=== PATIENT | female | born 1945 | race Caucasian/White ===

== ENCOUNTER 2024-02-28 07:42 | Outpatient (AMB) | payer OTHER, SELFPAY ==
--- NOTE | 2024-02-28 07:54 | MHC.OFFVIS ---
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 The patient describes her pain as sharp in nature. Most of the pain is along the anterior aspect of her knee. She has failed the last 3 months of conservative treatment including a home exercise program, cortisone injection, Tylenol and Celebrex. Patient states that her left knee pain is interfering with her activities of daily living and her ability to sleep well through the night. She has had a viscosupplementation injection given into her right knee in the past which gave her good relief. She has not had a viscosupplementation injection given into her left knee. She wishes to hold off on total knee replacement surgery for as long as possible. Allergies No Known Allergies Allergy (Verified 02/28/24 07:54) Medication List - Last Reconciled 02/28/24 by Gene Mcqueen MD albuterol sulfate 90 mcg/actuation inhalation amlodipine 10 mg PO DAILY aspirin (Adult Aspirin Regimen) 81 mg PO DAILY celecoxib 200 mg PO DAILY escitalopram oxalate 20 mg PO DAILY rosuvastatin 40 mg PO DAILY semaglutide (weight loss) (Wegovy) mg subcut trazodone 50 mg PO BEDTIME Physical Exam Const Other: Well-nourished well-developed very friendly female awake alert and oriented x3 in no acute distress Extrem Other: Bilateral lower extremity examination shows good capillary refill, no skin lesions noted, normal sensation light touch Left knee examination shows palpable crepitus with range of motion, pain with range of motion, range of motion from -3 degrees to 115 degrees, no instability Results Reviewed Results Reviewed: X-rays of the patient's left knee show joint space narrowing, subchondral sclerosis most significant in the patellofemoral joint, no acute bony abnormalities Assessment & Plan Assessment & Plan (1) Osteoarthritis of left knee: Code(s): M17.12 - Unilateral primary osteoarthritis, left knee Category: Medical Plan Ms. Brown presents with progressively worsening left knee pain due to osteoarthritis. I had a lengthy discussion with the patient regarding the treatment options. She wishes to hold off on total knee replacement surgery for as long as possible. I agree with this plan. I will see whether or not the patient's insurance company will cover a viscosupplementation injection for her left knee. I will see her back once the injection is available. If she fails continued non operative treatments we will further discuss the risks and benefits of left total knee replacement surgery. Feel free to call me at any time should questions regarding her orthopedic management arise. Thank you very much for asking me to see this very friendly patient. I spent 21 minutes in reviewing the patient's records and imaging studies, seeing the patient and documenting in the medical record. Orders: Orders XR knee LT 3V Today M25.562 - Pain in left knee Coding Level of Care Code New Pt Level 3 (14244) Diagnoses Osteoarthritis of left knee M17.12
== END 2024-02-28 08:21 | disposition home or self-care (01) ==
PROVIDERS: PCP Internal Medicine; Visit Provider Orthopaedic Surgery
DX: M17.12 Unilateral primary osteoarthritis, left knee (principal)
CPT/HCPCS: 99203

== ENCOUNTER 2024-02-28 10:40 | Outpatient (REF) | payer MEDICARE, SELFPAY ==
--- NOTE | ~2024-02-28 | XR_ITS ---
EXAMINATION: XR KNEE, LEFT CLINICAL INFORMATION: Pain. COMPARISON: None available. TECHNIQUE: AP, lateral and sunrise views of the left knee are submitted. FINDINGS: Bony alignment and mineralization are normal. The lateral, medial and patellofemoral joint space are well-maintained. There is minimal tricompartmental osteophyte formation. No fracture or dislocation is seen. There is a small joint effusion. No foreign body is seen. XR/XR knee LT 3V IMPRESSION: 1. There is minimal tricompartmental osteoarthritic change of the left knee. 2. No fracture or dislocation is seen. 3. There is a small left knee joint effusion. Electronically signed by: Bradford Mcdowell MD 03/26/2024 07:12 PM EDT
== END 2024-02-28 10:41 | disposition home or self-care (01) ==
LOC: HO.HOSX 10:40
PROVIDERS: Visit Provider Orthopaedic Surgery
DX: M25.562 Pain in left knee (principal)
CPT/HCPCS: 73562

== ENCOUNTER 2024-03-21 11:44 | Outpatient (AMB) | payer MEDICARE, SELFPAY ==
--- NOTE | 2024-03-21 11:50 | MHC.OFFVIS ---
Intake Visit Reasons: Bilateral knee pain Intake Note: Chiquita is a 78-year-old female who presents with complaints of bilateral knee pains. She describes her pains as sharp and severe in nature, /. Her pains have gotten worse over the last few years in spite of continued non operative treatments. She has failed the last 3 months of conservative treatment which consists of a home exercise program, topical creams, Tylenol and Celebrex. She denies any locking or giving way. She has done physical therapy as well which gave her minimal relief. The patient wishes to hold off on total knee replacement surgery for as long as possible. Allergies No Known Allergies Allergy (Verified 03/21/24 11:52) Medication List - Last Reconciled 03/21/24 by Gene Mcqueen MD albuterol sulfate 90 mcg/actuation inhalation amlodipine 10 mg PO DAILY aspirin (Adult Aspirin Regimen) 81 mg PO DAILY celecoxib 200 mg PO DAILY escitalopram oxalate 20 mg PO DAILY rosuvastatin 40 mg PO DAILY semaglutide (weight loss) (Wegovy) mg subcut trazodone 50 mg PO BEDTIME Physical Exam Const Other: Well-nourished well-developed very friendly female awake alert and oriented x3 in no acute distress Extrem Other: Bilateral lower extremity examination shows good capillary refill, no skin lesions noted, normal sensation light touch Bilateral knee examination shows minimal effusions, palpable crepitus with range of motion, pain with range of motion, range of motion from -3 degrees to 115 degrees, no instability Office Procedures Joint Injection/Aspiration Joint Injection/Aspiration Primary Site: left knee Prep: site was prepped using aseptic technique Injected: 60 mg of (Durolane viscosupplementation) and 1% plain lidocaine Procedure: The patient tolerated the procedure well Coding 00967 - Large joint Procedure code (CPT) selection complete Results Reviewed Results Reviewed: X-rays of the patient's bilateral knees taken previously show joint space narrowing, subchondral sclerosis, no acute bony abnormalities Assessment & Plan Assessment & Plan (1) Osteoarthritis of left knee: Code(s): M17.12 - Unilateral primary osteoarthritis, left knee Category: Medical (2) Pain in both knees: Code(s): M25.561 - Pain in right knee; M25.562 - Pain in left knee Plan Ms. Brown presents with bilateral knee pains due to osteoarthritis. I had a lengthy discussion with the patient regarding the treatment options. The risks and benefits of a left knee Durolane viscosupplementation injection were discussed at length with the patient. The patient wished to proceed. She tolerated the injection well. I will also see whether not her insurance company will cover a Durolane viscosupplementation injection for her right knee. I will see her back once the injection is available. She will continue with her activity modifications in the meantime. Feel free to call me at any time should questions regarding her orthopedic management arise. I spent 22 minutes in reviewing the patient's records and imaging studies, seeing the patient and documenting in the medical record. Orders: Orders AMB Joint Injection/Aspiration Today M17.12 - Unilateral primary osteoarthritis, left knee Coding Level of Care Code Est Pt Level 3 (76259) Complex EM visit Add On G2211 Diagnoses Osteoarthritis of left knee M17.12 Pain in both knees M25.561; M25.562 CPT Codes Coding - 39112 Large joint: 51244 - Large joint ([id number])
== END 2024-03-21 12:12 | disposition home or self-care (01) ==
PROVIDERS: PCP Internal Medicine; Visit Provider Orthopaedic Surgery
DX: M17.0 Bilateral primary osteoarthritis of knee (principal)
CPT/HCPCS: 20610; 99213

== ENCOUNTER → 2024-03-21 11:44 | Outpatient (BNVA) | payer MEDICARE, SELFPAY | PROVIDERS: PCP Internal Medicine; Visit Provider Orthopaedic Surgery | DX: M17.12 Unilateral primary osteoarthritis, left knee (principal); M25.561 Pain in right knee | CPT/HCPCS: 20610; 99212; J7318 ==

== ENCOUNTER 2024-04-15 10:35 | Outpatient (AMB) | payer MEDICARE, SELFPAY ==
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
[2024-04-15 10:38] VITALS: BP 122/66; PULSE 70; RESP 16; O2SAT 98; BMI 35.8
== END 2024-04-15 11:16 | disposition home or self-care (01) ==
PROVIDERS: PCP Internal Medicine; Visit Provider Psychiatry & Neurology Neurology
DX: G97.81 Other intraoperative complications of nervous system (principal); G45.9 Transient cerebral ischemic attack, unspecified; H53.9 Unspecified visual disturbance
CPT/HCPCS: 99204; G2211

== ENCOUNTER → 2024-04-15 10:35 | Outpatient (BNVA) | payer MEDICARE, SELFPAY | PROVIDERS: PCP Internal Medicine; Visit Provider Psychiatry & Neurology Neurology | DX: G97.81 Other intraoperative complications of nervous system (principal); H53.9 Unspecified visual disturbance; Z86.73 Personal history of transient ischemic attack (TIA), and cerebral infarction without residual deficits | CPT/HCPCS: 99202 ==

== ENCOUNTER 2024-04-30 10:10 | Outpatient (AMB) | payer MEDICARE, SELFPAY ==
[2024-04-30 10:17] VITALS: BMI 35.7
--- NOTE | 2024-04-30 10:17 | A.OFFVIS_ITS ---
Vital Signs 04/30/24 10:17 Height 5 ft Weight 183 lb BMI 35.7 Intake Visit Reasons: Left knee pain Intake Note: Chiquita is a 78 year old female who presents with complaints of progressively worsening left knee pain and giving way. The patient has undergone arthroscopic surgery twice on her right knee. She got fairly good relief from those procedures. She has not had surgery on her left knee. She describes her left knee pain as sharp in nature. Most of the pain is along the medial aspect of her knee. She states that her left knee will give out several times per day. Her pain is increased when she is going up and down stairs. She has had both cortisone injections and Durolane viscosupplementation injections. The most recent injection gave her minimal relief. She has done physical therapy exercises which aggravated her pain. The patient has failed the last 6 weeks of conservative treatment. Allergies No Known Allergies Allergy (Verified 04/30/24 10:23) Medication List - Last Reconciled 04/30/24 by Gene Mcqueen MD albuterol sulfate 90 mcg/actuation inhalation amlodipine 10 mg PO DAILY aspirin (Adult Aspirin Regimen) 81 mg PO DAILY celecoxib 200 mg PO DAILY escitalopram oxalate 20 mg PO DAILY rosuvastatin 40 mg PO DAILY semaglutide (weight loss) (Wegovy) mg subcut trazodone 50 mg PO BEDTIME [facility] Medical History (Updated 04/30/24 @ 10:39 by Gene Mcqueen MD) Episode of visual disturbance Transient ischemic attack during procedure Osteoarthritis Renal mass Mixed hyperlipidemia Non-alcoholic fatty liver disease H. pylori infection Anxiety and depression Carotid artery aneurysm Hypertension Class 2 obesity Coronary artery calcification Osteopenia Microscopic hematuria Edema of both legs Insomnia Avulsion fracture of left ankle Lumbar radiculopathy Thyroid nodule FABIAN (obstructive sleep apnea) History of colon polyps GERD (gastroesophageal reflux disease) History of COVID-19 Abnormal stress test TIA (transient ischemic attack) Post-nasal drip Osteoarthritis of knee Surgical History H/O total hysterectomy H/O section H/O knee surgery History of carpal tunnel release Family History Father No problems noted. Mother No problems noted. Social History Household Members: Spouse Housing: House Alcohol intake: never Patient Tobacco Use Status: Former Tobacco user Physical Exam Vital Signs: BMI result Body Mass Index 35.7 Const Other: Well-nourished well-developed very friendly female awake alert and oriented x3 in no acute distress Extrem Other: Bilateral lower extremity examination shows good capillary refill, no skin lesi ons noted, normal sensation light touch Left knee examination shows a minimal effusion, mild crepitus with range of motion, tenderness along her medial joint line, positive Mina's test, no instability Results Reviewed Results Reviewed: Standing full weight-bearing x-rays of the patient's left knee show mild diffuse joint space narrowing, no acute bony abnormalities Assessment & Plan Assessment & Plan (1) Tear of medial meniscus of left knee: Code(s): S83.242A - Other tear of medial meniscus, current injury, left knee, initial encounter Category: Medical (2) Left knee pain: Code(s): M25.562 - Pain in left knee Category: Medical Plan Ms. Brown presents with progressively worsening left knee pain and mechanical symptoms most likely due to a tear of her medial meniscus. I will send the patient for an MRI of her left knee for further evaluation. I will see her back once the MRI is completed to discuss the findings and treatment options. Feel free to call me at any time should questions regarding her orthopedic management arise. I spent 21 minutes in reviewing the patient's records and imaging studies, seeing the patient and documenting in the medical record. Orders: Orders MR knee LT wo con Today S83.242A - Other tear of medial meniscus, current injury, left knee, initial encounter Coding Level of Care Code Est Pt Level 3 (19585) Complex EM visit Add On G2211 Diagnoses Tear of medial meniscus of left knee S83.242A Left knee pain M25.562
== END 2024-04-30 10:39 | disposition home or self-care (01) ==
PROVIDERS: PCP Internal Medicine; Visit Provider Orthopaedic Surgery
DX: S83.242A Other tear of medial meniscus, current injury, left knee, initial encounter (principal); M25.562 Pain in left knee
CPT/HCPCS: 99213; G2211

== ENCOUNTER → 2024-04-30 10:10 | Outpatient (BNVA) | payer MEDICARE, SELFPAY | PROVIDERS: PCP Internal Medicine; Visit Provider Orthopaedic Surgery | DX: S83.242A Other tear of medial meniscus, current injury, left knee, initial encounter (principal); M25.562 Pain in left knee | CPT/HCPCS: 99212 ==

== ENCOUNTER 2024-05-19 10:52 | Outpatient (REF) | payer MEDICARE, SELFPAY ==
--- NOTE | ~2024-05-19 | MR_ITS ---
EXAMINATION: MR KNEE WITHOUT CONTRAST, LEFT CLINICAL INFORMATION: Left knee pain. COMPARISON: Radiographs 02/28/2024. TECHNIQUE: MRI of the knee without contrast was performed using routine sequences on a high-field scanner. FINDINGS: MENISCI: Medial Meniscus: Ill-defined undersurface fraying of the posterior horn. Lateral Meniscus: Complex tearing of the anterior horn extending to the meniscal body. LIGAMENTS: Cruciate: Intact. Collateral: Intact. EXTENSOR MECHANISM: Intact. ARTICULAR CARTILAGE/BONE: Patellofemoral Compartment: Cartilage thinning and surface irregularity throughout the patella and near full-thickness loss at the superolateral aspect of the lateral trochlea. Small marginal osteophytes. Medial Compartment: Mild cartilage thinning and surface irregularity of the weightbearing femoral condyle. Lateral Compartment: Partial-thickness cartilage loss of the central tibia and the peripheral aspect of the weightbearing femoral condyle laterally with marginal osteophytes. JOINT FLUID AND BURSAE: Moderate joint effusion with diffuse synovitis. Small Mathur's cyst. There is a 10 mm loose body in the posterior joint recess. Extension of joint fluid from the suprapatellar recess or a ganglion extending superficial to the distal vastus lateralis. MR/MR knee LT wo con IMPRESSION: Complex tear of the anterior horn and body of the lateral meniscus. Ill-defined undersurface fraying of the posterior horn of the medial meniscus. [id number] tricompartmental osteoarthritis. Moderate joint effusion with mild synovitis, and Mathur's cyst. Electronically signed by: Carter Hill MD 05/23/2024 01:59 PM [facility]
== END 2024-05-19 10:53 | disposition home or self-care (01) ==
LOC: HO.MRI 10:52
PROVIDERS: PCP Internal Medicine; Visit Provider Orthopaedic Surgery
DX: S83.242A Other tear of medial meniscus, current injury, left knee, initial encounter (principal)
CPT/HCPCS: 73721

== ENCOUNTER 2024-05-27 10:42 | Outpatient (AMB) | payer MEDICARE, SELFPAY ==
--- NOTE | 2024-05-27 10:45 | A.OFFVIS_ITS ---
Intake Visit Reasons: Left knee pain and giving way Intake Note: Chiquita is a 78 year old female who presents with complaints of progressively worsening left knee pain and giving way. The patient has undergone arthroscopic surgery twice on her right knee. She got fairly good relief from those procedures. She has not had surgery on her left knee. She describes her left knee pain as sharp in nature. Most of the pain is along the medial aspect of her knee. She states that her left knee will give out several times per day. Her pain is increased when she is going up and down stairs. She has had both cortisone injections and Durolane viscosupplementation injections. The most recent injection gave her minimal relief. She has done physical therapy exercises which aggravated her pain. The patient has failed the last 6 weeks of conservative treatment. Allergies No Known Allergies Allergy (Verified 05/27/24 10:49) Medication List - Last Reconciled 05/28/24 by Gene Mcqueen MD albuterol sulfate 90 mcg/actuation inhalation amlodipine 10 mg PO DAILY aspirin (Adult Aspirin Regimen) 81 mg PO DAILY celecoxib 200 mg PO DAILY escitalopram oxalate 20 mg PO DAILY rosuvastatin 40 mg PO DAILY semaglutide (weight loss) (Wegovy) mg subcut trazodone 50 mg PO BEDTIME [facility] Medical History Episode of visual disturbance Transient ischemic attack during procedure Osteoarthritis Renal mass Mixed hyperlipidemia Non-alcoholic fatty liver disease H. pylori infection Anxiety and depression Carotid artery aneurysm Hypertension Class 2 obesity Coronary artery calcification Osteopenia Microscopic hematuria Edema of both legs Insomnia Avulsion fracture of left ankle Lumbar radiculopathy Thyroid nodule FABIAN (obstructive sleep apnea) History of colon polyps GERD (gastroesophageal reflux disease) History of COVID-19 Abnormal stress test TIA (transient ischemic attack) Post-nasal drip Osteoarthritis of knee Surgical History H/O total hysterectomy H/O section H/O knee surgery History of carpal tunnel release Family History Father No problems noted. Mother No problems noted. Social History Household Members: Spouse Housing: House Alcohol intake: never Patient Tobacco Use Status: Former Tobacco user Physical Exam Const Other: Well-nourished well-developed very friendly female awake alert and oriented x3 in no acute distress Extrem Other: Bilateral lower extremity examination shows good capillary refill, no skin lesions noted, normal sensation light touch Left knee examination shows a minimal effusion, mild crepitus with range of motion, tenderness along her medial and lateral joint lines, positive Mina's test, no instability Results Reviewed Results Reviewed: Standing full weight-bearing x-rays of the patient's left knee show mild diffuse joint space narrowing, no acute bony abnormalities MRI of the patient's left knee shows mild diffuse degenerative changes as well as tearing of her medial and lateral menisci Assessment & Plan Assessment & Plan (1) Tear of medial meniscus of left knee: Code(s): S83.242A - Other tear of medial meniscus, current injury, left knee, initial encounter Category: Medical Plan Ms. Brown presents with progressively worsening left knee pain and mechanical symptoms due to tearing of her medial and lateral menisci. I had a lengthy discussion with the patient regarding the treatment options. At this point she has failed continued non operative treatments. The risks and benefits of left knee arthroscopic surgery were discussed at length with the patient. The patient wishes to proceed with surgery. Surgery will most likely involve left knee arthroscopic partial medial and lateral meniscectomies. The patient will be scheduled for next available date. She does understand that she may not get 100% relief of her symptoms depending on the severity of her degenerative changes. Feel free to call me at any time should questions regarding her orthopedic management arise. I spent 21 minutes in reviewing the patient's records and imaging studies, seeing the patient and documenting in the medical record. Coding Level of Care Code Est Pt Level 3 (90032) Complex EM visit Add On G2211 Diagnoses Tear of medial meniscus of left knee S83.242A
== END 2024-05-27 11:00 | disposition home or self-care (01) ==
PROVIDERS: PCP Internal Medicine; Visit Provider Orthopaedic Surgery
DX: S83.242A Other tear of medial meniscus, current injury, left knee, initial encounter (principal)
CPT/HCPCS: 99214; G2211

== ENCOUNTER → 2024-05-27 10:42 | Outpatient (BNVA) | payer MEDICARE, SELFPAY | PROVIDERS: PCP Internal Medicine; Visit Provider Orthopaedic Surgery | DX: S83.242A Other tear of medial meniscus, current injury, left knee, initial encounter (principal); X58.XXXA Exposure to other specified factors, initial encounter; Y93.9 Activity, unspecified; Y92.9 Unspecified place or not applicable; Y99.9 Unspecified external cause status | CPT/HCPCS: 99212 ==

== ENCOUNTER 2024-07-10 12:41 | Outpatient (AMB) | payer MEDICARE, SELFPAY ==
--- NOTE | 2024-07-10 12:41 | A.OFFVIS_ITS ---
Vital Signs 07/10/24 12:42 Height 5 ft Weight 183 lb BMI 35.7 Intake Visit Reasons: Left knee pain Intake Note: Chiquita is a 78 year old female who presents with complaints of progressively worsening left knee pain and giving way. The patient has undergone arthroscopic surgery twice on her right knee. She got fairly good relief from those procedures. She has not had surgery on her left knee. She describes her left knee pain as sharp in nature. Most of the pain is along the medial aspect of her knee. She states that her left knee will give out several times per day. Her pain is increased when she is going up and down stairs. She has had both cortisone injections and Durolane viscosupplementation injections. The most recent injection gave her minimal relief. She has done physical therapy exercises which aggravated her pain. The patient has failed the last 6 weeks of conservative treatment. Allergies No Known Allergies Allergy (Verified 07/10/24 12:45) Medication List - Last Reconciled 07/10/24 by Gene Mcqueen MD albuterol sulfate 90 mcg/actuation 2 puffs inhalation BID PRN amlodipine 10 mg PO DAILY aspirin (Adult Aspirin Regimen) 81 mg PO DAILY celecoxib 200 mg PO DAILY escitalopram oxalate 20 mg PO DAILY gemfibrozil 600 mg PO BID omeprazole 20 mg PO BID rosuvastatin 40 mg PO DAILY semaglutide (weight loss) (Wegovy) 1 mg subcut QWEEK trazodone 50 mg PO BEDTIME [facility] Medical History History of deviated nasal septum Arthritis Cough URI, acute Asthma Mucoid cyst of joint Spinal stenosis of lumbar region Avulsion fracture of ankle Chronic pain of right knee 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 pylori infection Anxiety and depression Carotid artery aneurysm Hypertension Class 2 obesity Coronary artery calcification Osteopenia Microscopic hematuria Edema of both legs Insomnia Avulsion fracture of left ankle Lumbar radiculopathy Thyroid nodule FABIAN (obstructive sleep apnea) History of colon polyps GERD (gastroesophageal reflux disease) History of COVID-19 Abnormal stress test TIA (transient ischemic attack) Post-nasal drip Osteoarthritis of knee Surgical History History of nasal surgery Hx of bilateral cataract extraction History of esophagogastroduodenoscopy (EGD) H/O colonoscopy Hx of cardiac catheterization H/O total hysterectomy H/O section H/O knee surgery History of carpal tunnel release Family History Father No problems noted. Mother No problems noted. Social History Household Members: Spouse Housing: House Are you a primary health care manager to a significant other at home: No Do you presently have visiting nurse or other home services: No Alcohol intake: never Patient Tobacco Use Status: Former Tobacco user Physical Exam Vital Signs: BMI result Body Mass Index 35.7 Const Other: Well-nourished well-developed very friendly female awake alert and oriented x3 in no acute distress Extrem Other: Bilateral lower extremity examination shows good capillary refill, no skin lesions noted, normal sensation light touch Left knee examination shows a minimal effusion, mild crepitus with range of motion, tenderness along her medial joint line, positive Mina's test, no instability Results Reviewed Results Reviewed: Standing full weight-bearing x-rays of the patient's left knee show mild diffuse joint space narrowing, no acute bony abnormalities MRI of the patient's left knee shows mild to moderate diffuse degenerative changes as well as a tear of the medial meniscus Assessment & Plan Assessment & Plan (1) Left knee pain: Code(s): M25.562 - Pain in left knee Category: Medical (2) Tear of medial meniscus of left knee: Code(s): S83.242A - Other tear of medial meniscus, current injury, left knee, initial encounter Category: Medical Plan Ms. Brown presents with progressively worsening left knee pain and mechanical symptoms due to early degenerative joint disease as well as a medial meniscus tear. I had a lengthy discussion with the patient regarding the treatment options. At this point she has failed non operative treatments. The risks and benefits of left knee arthroscopic surgery were discussed at length with the patient. The patient wishes to proceed with surgery. Surgery will most likely involve left knee arthroscopic partial medial meniscectomy. The patient does understand that she may not get 100% relief of her symptoms depending on the severity of her degenerative changes. The patient was given a prescription for oxycodone at her preoperative appointment. She will follow up as instructed. Feel free to call me at any time should questions regarding her orthopedic management arise. I spent 22 minutes in reviewing the patient's records and imaging studies, seeing the patient and documenting in the medical record. Medications: New oxycodone Partial Fill upon patient request. 5 mg PO Q6H PRN 20 tabs 0RF pain Coding Level of Care Code Est Pt Level 3 (08548) Complex EM visit Add On G2211 Diagnoses Left knee pain M25.562 Tear of medial meniscus of left knee S83.242A
[2024-07-10 12:42] VITALS: BMI 35.7
== END 2024-07-10 13:05 | disposition home or self-care (01) ==
PROVIDERS: PCP Internal Medicine; Visit Provider Orthopaedic Surgery
DX: M25.562 Pain in left knee (principal); S83.242A Other tear of medial meniscus, current injury, left knee, initial encounter
CPT/HCPCS: 99213; G2211

== ENCOUNTER → 2024-07-10 12:41 | Outpatient (BNVA) | payer MEDICARE, SELFPAY | PROVIDERS: PCP Internal Medicine; Visit Provider Orthopaedic Surgery | DX: S83.242A Other tear of medial meniscus, current injury, left knee, initial encounter (principal); X58.XXXA Exposure to other specified factors, initial encounter; Y93.9 Activity, unspecified; Y92.9 Unspecified place or not applicable; Y99.9 Unspecified external cause status | CPT/HCPCS: 99212 ==

== ENCOUNTER 2024-07-18 09:39 | Day surgery (SDC) | payer MEDICARE, SELFPAY ==
[2024-06-18 12:12] VITALS: BMI 34.2
--- NOTE | 2024-07-07 13:47 | P.CONAN_ITS ---
Documented by User: Bernadine Lopez NP 07/17/24 08:48 HPI - Anesthesia Eval Consult details Narrative: 78yo F for Left Knee Arthroscopy with partial medial minesectomy and lateral, 07/18/23 Medically optimized per PCP Neuro event after cardiac cath (2021) (?TIA). Cath was negative, false positive stress test. Temporarily on plavix/asa. 01/2024 [facility] admit for r/o, likely complex migraine. 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 pylori infection Anxiety and depression Carotid artery aneurysm Hypertension Class 2 obesity Coronary artery calcification Osteopenia Microscopic hematuria Edema of both legs Insomnia Avulsion fracture of left ankle Lumbar radiculopathy Thyroid nodule FABIAN (obstructive sleep apnea) History of colon polyps GERD (gastroesophageal reflux disease) History of COVID-19 Abnormal stress test TIA (transient ischemic attack) Post-nasal drip Osteoarthritis of knee Family History Family History Father No problems noted. Mother No problems noted. Surgical History Surgical History History of nasal surgery Hx of bilateral cataract extraction History of esophagogastroduodenoscopy (EGD) H/O colonoscopy Hx of cardiac catheterization H/O total hysterectomy H/O section H/O knee surgery History of carpal tunnel release Social History Social History Household Members: Spouse Housing: House Are you a primary direct care worker to a significant other at home: No Do you presently have visiting nurse or other home services: No Alcohol intake: never Patient Tobacco Use Status: Former Tobacco user Use of substances other than those prescribed or required for medical reasons: No Have you been hit, kicked, punched, or otherwise hurt by someone within the past year? If so, by whom?: No Are you DNR?: No Advance Directives: No Advance Directives Information Provided: Yes Advance Directives on File: No Recently lost weight without trying: No Eating poorly because of decreased appetite: No Nutrition Risks: No Nutritional Risk Patient : No : No Poor oral hygiene: Yes (bottom bridge, crowns upper and lower) Meds Allergies Allergy/AdvReac Type Severity Reaction Status Date / Time No Known Allergies Allergy Verified 07/18/24 10:41 Home Medications ?Medication ?Instructions ?Recorded ?Confirmed ?Last Taken ?Type albuterol sulfate 90 mcg/actuation 2 puff inhalation BID PRN 02/28/24 07/10/24 Unknown History aerosol inhaler Shortness Of Breath Or Wheezing amlodipine 10 mg tablet 10 mg PO DAILY 02/28/24 07/10/24 07/18/24 History aspirin 81 mg tablet,delayed 81 mg PO DAILY 02/28/24 07/10/24 Unknown History release (Adult Aspirin Regimen) celecoxib 200 mg capsule 200 mg PO DAILY 02/28/24 07/10/24 07/06/24 History escitalopram oxalate 20 mg tablet 20 mg PO DAILY 02/28/24 07/10/24 Unknown History rosuvastatin 40 mg tablet 40 mg PO DAILY 02/28/24 07/10/24 Unknown History semaglutide (weight loss) 1 mg/0.5 1 mg subcut QWEEK 02/28/24 07/10/24 07/06/24 History mL subcutaneous pen injector (Wegovy) trazodone 50 mg tablet 50 mg PO BEDTIME 02/28/24 07/10/24 Unknown History gemfibrozil 600 mg tablet 600 mg PO BID 06/18/24 07/10/24 Unknown History omeprazole 20 mg capsule,delayed 20 mg PO BID 06/18/24 07/10/24 07/18/24 History release Exam Height,Weight and Vital Signs: Height 5 ft Weight 79.379 kg Pertinent Lab Results Pertinent Lab Results: CBC and BMP 05/2024 WNL Narrative Narrative: ?EKG 06/2024 SR @ [address] Angio Neck Hyperacute Stroke?01/30/2024 15:06 by Molly Narayan ?IMPRESSION: No cutoff or high-grade stenosis of the major branches of the intracranial arteries. The 2 mm aneurysm at the left paraclinoid ICA is unchanged. The right internal carotid artery arises from the right innominate artery directly. It shows no significant stenosis by NASCET criteria. The left proximal internal carotid artery show no significant stenosis by NASCET criteria. The left distal cervical ICA has mild diffuse irregularities which could be either due to fibrous muscular fascia or atherosclerotic disease. No stenosis. The right cervical vertebral artery shows no significant stenosis. The left cervical vertebral artery shows no significant stenosis. No significant interval change to the prior CTAs. 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 pylori infection Anxiety and depression Carotid artery aneurysm Hypertension Class 2 obesity Coronary artery calcification Osteopenia Microscopic hematuria Edema of both legs Insomnia Avulsion fracture of left ankle Lumbar radiculopathy Thyroid nodule FABIAN (obstructive sleep apnea) History of colon polyps GERD (gastroesophageal reflux disease) History of COVID-19 Abnormal stress test TIA (transient ischemic attack) Post-nasal drip Osteoarthritis of knee Family History Family History Father No problems noted. Mother No problems noted. Family history of problems with anesthesia: No Surgical History Surgical History History of nasal surgery Hx of bilateral cataract extraction History of esophagogastroduodenoscopy (EGD) H/O colonoscopy Hx of cardiac catheterization H/O total hysterectomy H/O section H/O knee surgery History of carpal tunnel release History of Problems with Anesthesia: No Social History Social History Household Members: Spouse Housing: House Are you a primary direct care worker to a significant other at home: No Do you presently have visiting nurse or other home services: No Alcohol intake: never Patient Tobacco Use Status: Former Tobacco user Use of substances other than those prescribed or required for medical reasons: No Have you been hit, kicked, punched, or otherwise hurt by someone within the past year? If so, by whom?: No Are you DNR?: No Advance Directives: No Advance Directives Information Provided: Yes Advance Directives on File: No Recently lost weight without trying: No Eating poorly because of decreased appetite: No Nutrition Risks: No Nutritional Risk Patient : No : No Poor oral hygiene: Yes (bottom bridge, crowns upper and lower) Meds Allergies Allergy/AdvReac Type Severity Reaction Status Date / Time No Known Allergies Allergy Verified 07/18/24 10:41 Home Medications ?Medication ?Instructions ?Recorded ?Confirmed ?Last Taken ?Type albuterol sulfate 90 mcg/actuation 2 puff inhalation BID PRN 02/28/24 07/10/24 Unknown History aerosol inhaler Shortness Of Breath Or Wheezing amlodipine 10 mg tablet 10 mg PO DAILY 02/28/24 07/10/24 07/18/24 History aspirin 81 mg tablet,delayed 81 mg PO DAILY 02/28/24 07/10/24 Unknown History release (Adult Aspirin Regimen) celecoxib 200 mg capsule 200 mg PO DAILY 02/28/24 07/10/24 07/06/24 History escitalopram oxalate 20 mg tablet 20 mg PO DAILY 02/28/24 07/10/24 Unknown History rosuvastatin 40 mg tablet 40 mg PO DAILY 02/28/24 07/10/24 Unknown History semaglutide (weight loss) 1 mg/0.5 1 mg subcut QWEEK 02/28/24 07/10/24 07/06/24 History mL subcutaneous pen injector (Stevo) trazodone 50 mg tablet 50 mg PO BEDTIME 02/28/24 07/10/24 Unknown History gemfibrozil 600 mg tablet 600 mg PO BID 06/18/24 07/10/24 Unknown History omeprazole 20 mg capsule,delayed 20 mg PO BID 06/18/24 07/10/24 07/18/24 History release Exam Airway Mallampati Class: II TM Dist: <=3cm Neck ROM: Full Heart: rrr Lungs: cta Assessment and Plan Assessment Anesthesia Assessment: Anesthesia Plan Discussed Final Anesthetic Review Family History of Problems with Anesthesia: No History of Problems with Anesthesia: No NPO: Yes ASA Class: III Final Preanesthetic Review: No Changes in Pt Med Stat, Meds/Allgs Chart Reviewed, Consent Obtained/Reviewed and Anes Risks/Benef Reviewed Patient Risk: Intermediate Procedure Risk: Low Anesthetic Plan Anesthetic Plan: GA Disposition: Standard PACU
[2024-07-18] VITALS (10 sets, daily range): BP systolic 118–155; BP diastolic 69–80; PULSE 64–76; RESP 12–18; TEMP 36.1–36.7; O2SAT 94–97; BMI 34.2
[2024-07-18] MEDS: Lactated Ringers 1,000 ML 100 ML IVCONT (10:15)
--- NOTE | 2024-07-18 12:27 | PM.OP ---
Brief Operative Note Date of Service: 07/18/24 Pre-op diagnosis: Left knee medial meniscus tear, left knee lateral meniscus tear, left knee degenerative joint disease Post-op diagnosis: same Procedure: Left knee diagnostic arthroscopy with left knee arthroscopic partial medial and lateral meniscectomies, left knee arthroscopic chondroplasty of the undersurface of the patella and the medial femoral condyle Implants: none Surgeon: Gene Mcqueen MD Anesthesia: GLMA Was an Crusher And Blender Operator used for this Procedure?: No Estimated blood loss (mL): 10 Pathology: none sent Condition: stable Disposition: PACU
--- NOTE | 2024-07-18 12:28 | P.OP_ITS ---
Operative Note Operative Note Date of Service: 07/18/24 Narrative: After the patient was identified as Chiquita Brown and her left knee was initialed by myself they were brought to the operating room where general anesthesia was induced by the anesthesiologist in routine fashion. The patient was given 2 g of IV Ancef preoperatively for infection prophylaxis. The patient's left lower extremity was prepped and draped in sterile fashion. A formal time-out was completed. Marcaine was injected into the planned incision sites as well as the patient's left knee joint. A #11 scalpel blade was used to make an anterolateral portal 1 cm proximal to the joint line and 1 cm lateral to the p atellar tendon. Blunt trocar technique was used to enter the suprapatellar pouch with the knee in extension. Diagnostic arthroscopy showed multiple bands of thickened plica which would be excised at the end of the procedure. There were no loose bodies or abnormalities found in either the medial or lateral gutters. The articular surface of the patella showed diffuse grades 3 and 4 degenerative changes. The trochlear groove articular surface showed diffuse grades 1 and 2 degenerative changes. The patient's knee was flexed to 45 degrees and a valgus force was placed upon it. The medial compartment was entered. An anteromedial portal was made 1 cm proximal to the joint line and 1 cm medial to the patellar tendon. Probing of the medial meniscus showed a radial tear of the anterior horn. A partial medial meniscectomy was performed using the arthroscopic shaver. Following the partial meniscectomy the remainder of the meniscus tissue was stable. There were diffuse grades 2 and 3 de generative changes of the medial femoral condyle as well as grade 1 degenerative changes of the medial tibial plateau. The articular surface of the medial femoral condyle was then made smooth using the arthroscopic shaver. The articular surface of the medial tibial plateau was already smooth so no chondroplasty was indicated. The patient's knee was placed into a neutral position. There was no injury to the anterior cruciate ligament. The patient's knee was then placed in the figure of 4 position and the lateral compartment was entered. There was a radial tear of the anterior horn of the lateral meniscus. A partial lateral meniscectomy was performed using the arthroscopic shaver. Following the partial meniscectomy the remainder of the meniscus tissue was stable. There were diffuse grade 2 degenerative changes of the lateral femoral condyle and lateral tibial plateau. The articular surfaces were smooth so no chondroplasty was indicated. The patient's knee was once again brought into extension and the suprapatellar pouch was entered. The arthroscopic shaver and the ArthroCare Wand were used to excise the thickened bands of plica. The undersurface of the patella was then made smooth using the arthroscopic shaver. The articular surface of the trochlear groove was already smooth so no chondroplasty was indicated. The knee joint was irrigated and then drained. All arthroscopic instruments were removed. The 2 portals were closed with 3-0 nylon interrupted suture. The knee joint was injected with Marcaine. Dry sterile dressing and Mian bandages were placed over the patient's knee. The patient was awoken and extubated in the operating room. The patient was transferred to the recovery room in stable condition.
[2024-07-18] MEDS: cefTRIAXone sodium 1 GM VIAL IVPUSH (12:36)
[2024-07-18] MEDS: fentaNYL citrate/PF 100 MCG/2 ML VIAL 25 MCG IVPUSH (13:05)
== END 2024-07-18 13:47 | disposition home or self-care (01) ==
PROVIDERS: PCP Internal Medicine; Visit Provider Orthopaedic Surgery
PROC: (CPT 29870; principal; 2024-07-18 12:30)
DX: S83.242A Other tear of medial meniscus, current injury, left knee, initial encounter (principal); S83.282A Other tear of lateral meniscus, current injury, left knee, initial encounter; X58.XXXA Exposure to other specified factors, initial encounter; Y93.9 Activity, unspecified; Y92.9 Unspecified place or not applicable; Y99.8 Other external cause status; M25.562 Pain in left knee; M23.52 Chronic instability of knee, left knee; M17.12 Unilateral primary osteoarthritis, left knee; M67.52 Plica syndrome, left knee; M85.80 Other specified disorders of bone density and structure, unspecified site; R60.0 Localized edema; E66.812 Obesity, class 2; Z68.34 Body mass index [BMI] 34.0-34.9, adult; I10 Essential (primary) hypertension; E78.2 Mixed hyperlipidemia; G47.33 Obstructive sleep apnea (adult) (pediatric); K21.9 Gastro-esophageal reflux disease without esophagitis; F41.9 Anxiety disorder, unspecified; Z86.73 Personal history of transient ischemic attack (TIA), and cerebral infarction without residual deficits; Z79.82 Long term (current) use of aspirin; Z79.85 Long-term (current) use of injectable non-insulin antidiabetic drugs; Z79.899 Other long term (current) drug therapy; Z87.891 Personal history of nicotine dependence; Z98.890 Other specified postprocedural states
CPT/HCPCS: 29880; 29876; J0131; J0171; J0690; J0696; J1100; J1885; J2003; J2405; J2704; J2795; J3010

== ENCOUNTER → 2024-07-18 09:39 | Outpatient (BNV) | payer MEDICARE, SELFPAY | PROVIDERS: PCP Internal Medicine; Visit Provider Orthopaedic Surgery | DX: S83.242A Other tear of medial meniscus, current injury, left knee, initial encounter (principal); S83.282A Other tear of lateral meniscus, current injury, left knee, initial encounter | CPT/HCPCS: 29880 ==

== ENCOUNTER 2024-07-31 12:18 | Outpatient (AMB) | payer MEDICARE, SELFPAY ==
--- NOTE | 2024-07-31 12:33 | MHC.OFFVIS ---
Vital Signs 07/31/24 12:38 Height 5 ft Weight 175 lb BMI 34.2 Intake Visit Reasons: PO LT Knee 07/18/24 DR Intake Note: Chiquita is a 78 year old female who presents today post-operatively after undergoing a left knee arthroscopy on 07/18/[address] Mcqueen. Patient reports she is still in pain but is not taking any of her pain medications. Allergies No Known Allergies Allergy (Verified 07/31/24 12:38) Medication List - Last Reconciled 07/31/24 by Symone Lee PA-C albuterol sulfate 90 mcg/actuation 2 puffs inhalation BID PRN alendronate mg PO amlodipine 10 mg PO DAILY aspirin (Adult Aspirin Regimen) 81 mg PO DAILY escitalopram oxalate 20 mg PO DAILY gemfibrozil 600 mg PO BID omeprazole 20 mg PO BID rosuvastatin 40 mg PO DAILY semaglutide (Ozempic) mg subcut trazodone 50 mg PO BEDTIME HPI HPI PO LT Knee 07/18/24 DR: Details: 78-year-old female returns to the office today status post left knee arthroscopy with Dr. Mcqueen on 07/18/2024. The patient states she is doing well however she does have some discomfort with activities and she notices some grinding in her knee. 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 pylori infection Anxiety and depression Carotid artery aneurysm Hypertension Class 2 obesity Coronary artery calcification Osteopenia Microscopic hematuria Edema of both legs Insomnia Avulsion fracture of left ankle Lumbar radiculopathy Thyroid nodule FABIAN (obstructive sleep apnea) History of colon polyps GERD (gastroesophageal reflux disease) History of COVID-19 Abnormal stress test TIA (transient ischemic attack) Post-nasal drip Osteoarthritis of knee Surgical History History of nasal surgery Hx of bilateral cataract extraction History of esophagogastroduodenoscopy (EGD) H/O colonoscopy Hx of cardiac catheterization H/O total hysterectomy H/O section H/O knee surgery History of carpal tunnel release Family History Father No problems noted. Mother No problems noted. Social History Household Members: Spouse Housing: House Are you a primary child care development specialist to a significant other at home: No Do you presently have visiting nurse or other home services: No Alcohol intake: never Patient Tobacco Use Status: Former Tobacco user Review of Systems Const All systems reviewed & are unremarkable except as noted in HPI and below Physical Exam Vital Signs: BMI result Body Mass Index 34.2 Const General: cooperative and no acute distress Orientation/consciousness: patient oriented x3 Resp Effort & Inspection: normal respiratory effort and able to speak in complete sentences Cardio Peripheral pulses: Peripheral pulses 2+ throughout Neuro General: patient oriented x3 Extrem Other: Left knee normal to inspection. Incisions clean dry and intact no erythema no drainage or joint effusion. Range of motion 0-95 degrees. Calf supple nontender neurovascularly intact. Results Reviewed Results Reviewed: Brief Operative Note Date of Service: 07/18/24 Pre-op diagnosis: Left knee medial meniscus tear, left knee lateral meniscus tear, left knee degenerative joint disease Post-op diagnosis: same Procedure: Left knee diagnostic arthroscopy with left knee arthroscopic partial medial and lateral meniscectomies, left knee arthroscopic chondroplasty of the undersurface of the patella and the medial femoral condyle Implants: none Surgeon: Gene Mcqueen MD Assessment & Plan Assessment & Plan (1) Tear of medial meniscus of left knee: Code(s): S83.242A - Other tear of medial meniscus, current injury, left knee, initial encounter Category: Medical (2) Osteoarthritis of left knee: Code(s): M17.12 - Unilateral primary osteoarthritis, left knee Category: Medical Plan Sutures removed today Steri-Strips applied. I discussed with her the benefits of physical therapy to work on range of motion and quad strength. I explained over the next 4-6 weeks she should avoid activities such as excessive bending kneeling twisting or pivoting. She will increase activities as tolerated and see us back in [address] Mcqueen, sooner if needed. Coding Level of Care Code Global (24057) Diagnoses Tear of medial meniscus of left knee S83.242A Osteoarthritis of left knee M17.12
[2024-07-31 12:38] VITALS: BMI 34.2
== END 2024-07-31 13:04 | disposition home or self-care (01) ==
PROVIDERS: PCP Internal Medicine; Visit Provider Physician Assistant
DX: S83.242A Other tear of medial meniscus, current injury, left knee, initial encounter (principal); M17.12 Unilateral primary osteoarthritis, left knee
CPT/HCPCS: 99024

== ENCOUNTER → 2024-07-31 12:18 | Outpatient (BNVA) | payer MEDICARE, SELFPAY | PROVIDERS: PCP Internal Medicine; Visit Provider Physician Assistant | DX: M17.12 Unilateral primary osteoarthritis, left knee (principal); S83.242D Other tear of medial meniscus, current injury, left knee, subsequent encounter; X58.XXXD Exposure to other specified factors, subsequent encounter; Z98.890 Other specified postprocedural states | CPT/HCPCS: 99212 ==

== ENCOUNTER 2024-08-28 09:07 | Outpatient (AMB) | payer MEDICARE, SELFPAY ==
[2024-08-28 09:13] VITALS: BMI 34.2
--- NOTE | 2024-08-28 09:13 | MHC.OFFVIS ---
Vital Signs 08/28/24 09:13 Height 5 ft Weight 175 lb BMI 34.2 Intake Visit Reasons: PO LT Knee 07/18/24 DR-4 WK Intake Note: Chiquita is a 79 year old female who presents today post-operatively after undergoing a left knee arthroscopy on 07/18/[address] Mcqueen. She reports continued mild to moderate discomfort in her left knee. She continues to go to physical therapy at [facility] (Former[facility] in [place]. The patient states that following the therapy sessions she has increased discomfort for two days. She takes Celebrex daily. She also takes Tylenol as needed. Allergies No Known Allergies Allergy (Verified 08/28/24 09:13) Medication List - Last Reconciled 08/28/24 by Gene Mcqueen MD albuterol sulfate 90 mcg/actuation 2 puffs inhalation BID PRN alendronate mg PO amlodipine 10 mg PO DAILY aspirin (Adult Aspirin Regimen) 81 mg PO DAILY escitalopram oxalate 20 mg PO DAILY gemfibrozil 600 mg PO BID omeprazole 20 mg PO BID rosuvastatin 40 mg PO DAILY semaglutide (Ozempic) mg subcut trazodone 50 mg PO BEDTIME [facility] Medical History History of deviated nasal septum Arthritis Cough URI, acute Asthma Mucoid cyst of joint Spinal stenosis of lumbar region Avulsion fracture of ankle Chronic pain of right knee 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 pylori infection Anxiety and depression Carotid artery aneurysm Hypertension Class 2 obesity Coronary artery calcification Osteopenia Microscopic hematuria Edema of both legs Insomnia Avulsion fracture of left ankle Lumbar radiculopathy Thyroid nodule FABIAN (obstructive sleep apnea) History of colon polyps GERD (gastroesophageal reflux disease) History of COVID-19 Abnormal stress test TIA (transient ischemic attack) Post-nasal drip Osteoarthritis of knee Surgical History History of nasal surgery Hx of bilateral cataract extraction History of esophagogastroduodenoscopy (EGD) H/O colonoscopy Hx of cardiac catheterization H/O total hysterectomy H/O section H/O knee surgery History of carpal tunnel release Family History Father No problems noted. Mother No problems noted. Social History Household Members: Spouse Housing: House Are you a primary vp care management to a significant other at home: No Do you presently have visiting nurse or other home services: No Alcohol intake: never Patient Tobacco Use Status: Former Tobacco user Physical Exam Vital Signs: BMI result Body Mass Index 34.2 Extrem Other: Left knee examination shows full active extension and flexion to 115 degrees, mild discomfort with range of motion Assessment & Plan Assessment & Plan (1) Left knee pain: Code(s): M25.562 - Pain in left knee Category: Medical Plan Ms. Brown continues to do fairly well after undergoing left knee arthroscopic surgery on 07/18/2024. The patient may be aggravating her knee with her physical therapy exercises. I did recommend that the patient stopped going to formal physical therapy and begin a home exercise program. The patient questioned whether or not swimming would be good for her. I do feel that swimming would be quite beneficial. She will contact me prior to her follow-up appointment in 3 months should any questions or concerns arise. Feel free to call me at any time should questions regarding her orthopedic management arise. Coding Level of Care Code Global (50981) Diagnoses Left knee pain M25.562
--- OUTSIDE RECORDS SUMMARY | 2024-08-28 09:35 | XMS_ITS | Clinical Summary ---
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 [facility] Immature Granulocytes Relative 0.6 % LAB HEMETOLOGY METHOD 06/05/2024 12:33 PM [facility] Neutrophils Absolute 4.36 1.50 - 7.00 K/mcL LAB HEMETOLOGY METHOD 06/05/2024 12:33 PM EST [facility] Lymphocytes Absolute 1.00 1.00 - 5.00 K/mcL LAB HEMETOLOGY METHOD 06/05/2024 12:33 PM [facility] Monocytes Absolute 0.54 0.20 - 1.00 K/[facility] LAB HEMETOLOGY METHOD 06/05/2024 12:33 PM EST [facility] Eosinophils Absolute 0.29 0.00 - 0.50 K/[facility] LAB HEMETOLOGY METHOD 06/05/2024 12:33 PM EST [facility] Basophils Absolute 0.05 0.00 - 0.20 K/[facility] LAB HEMETOLOGY METHOD 06/05/2024 12:33 PM [facility] Immature Granulocytes Absolute 0.04(H) 0.00 - 0.03 K/[facility] LAB HEMETOLOGY METHOD 06/05/2024 12:33 PM [facility] Blood Venous blood specimen / Unknown Venipuncture / Unknown 06/05/2024 10:30 AM EST 06/05/2024 10:30 AM EST Bernard Uriarte MD LAB BLOOD ORDERABLES Final Resu lt [facility] [address] [place] [address], * Comprehensive metabolic panel (06/05/2024 10:30 AM EST) Sodium 142 133 - 145 mmol/L LAB CHEMISTRY METHOD 06/05/2024 3:15 PM EST [facility] Potassium 4.2 3.5 - 5.5 mmol/L LAB CHEMISTRY METHOD 06/05/2024 3:15 PM [facility] Chloride 107 96 - 110 mmol/L LAB CHEMISTRY METHOD 06/05/2024 3:15 PM EST [facility] CO2 29 21 - 32 mmol/L LAB CHEMISTRY METHOD 06/05/2024 3:15 PM [facility] Anion Gap 6 3 - 11 LAB CHEMISTRY METHOD 06/05/2024 3:15 PM [facility] Glucose 86 70 - 100 mg/dL LAB CHEMISTRY METHOD 06/05/2024 3:15 PM [facility] BUN 13 5 - 25 mg/dL LAB CHEMISTRY METHOD 06/05/2024 3:15 PM [facility] Creatinine 0.68 0.50 - 1.10 mg/dL LAB CHEMISTRY METHOD 06/05/2024 3:15 PM [facility] eGFR 90 >=60 mL/min/1. 73m2 LAB CHEMISTRY METHOD 06/05/2024 3:15 PM [facility] Comment:Calculation based on the??Chronic Kidney Disease Epidemiology Collaboration (CKD-EPI) equation refit??without adjustment for race. BUN/Creatinine Ratio 19.1 LAB CHEMISTRY METHOD 06/05/2024 3:15 PM [facility] Calcium 10.1 8.5 - 10.5 mg/dL LAB CHEMISTRY METHOD 06/05/2024 3:15 PM [facility] AST (SGOT) 25 10 - 42 unit/L LAB CHEMISTRY METHOD 06/05/2024 3:15 PM [facility] ALT (SGPT) 30 10 - 60 unit/L LAB CHEMISTRY METHOD 06/05/2024 3:15 PM [facility] Alkaline Phosphatase 104 42 - 121 unit/L LAB CHEMISTRY METHOD 06/05/2024 3:15 PM [facility] Total Protein 6.9 6.0 - 8.0 g/dL LAB CHEMISTRY METHOD 06/05/2024 3:15 PM [facility] Albumin 4.0 3.2 - 5.0 g/dL LAB CHEMISTRY METHOD 06/05/2024 3:15 PM [facility] Total Bilirubin 0.4 0.0 - 1.4 mg/dL LAB CHEMISTRY METHOD 06/05/2024 3:15 PM EST [facility] Blood Venous blood specimen / Unknown Venipuncture / Unknown 06/05/2024 10:30 AM EST 06/05/2024 10:30 AM EST us Bernard Uriarte MD LAB BLOOD ORDERABLES Final Resu lt [facility] [address] [place] [address], [place] [phone] * Respiratory virus panel molecular study (05/28/2024 4:34 PM EST) Adenovirus Detection by PCR Not Detected Not Detected LAB MICROBIOLOGY METHOD 05/28/2024 7:11 PM [facility] Influenza A PCR Not Detected Not Detected LAB MICROBIOLOGY METHOD 05/28/2024 7:11 PM [facility] Influenza B PCR Not Detected Not Detected LAB MICROBIOLOGY METHOD 05/28/2024 7:11 PM [facility] Coronavirus 229E Not Detected Not Detected LAB MICROBIOLOGY METHOD 05/28/2024 7:11 PM [facility] Coronavirus HKU1 Not Detected Not Detected LAB MICROBIOLOGY METHOD 05/28/2024 7:11 PM [facility] Coronavirus OC43 Not Detected Not Detected LAB MICROBIOLOGY METHOD 05/28/2024 7:11 PM [facility] Coronavirus NL63 Not Detected Not Detected LAB MICROBIOLOGY METHOD 05/28/2024 7:11 PM [facility] Parainfluenza Virus 1 Not Detected Not Detected LAB MICROBIOLOGY METHOD 05/28/2024 7:11 PM [facility] Parainfluenza Virus 2 Not Detected Not Detected LAB MICROBIOLOGY METHOD 05/28/2024 7:11 PM [facility] Parainfluenza Virus 3 Not Detected Not Detected LAB MICROBIOLOGY METHOD 05/28/2024 7:11 PM [facility] Parainfluenza Virus 4 Not Detected Not Detected LAB MICROBIOLOGY METHOD 05/28/2024 7:11 PM [facility] RSV PCR Not Detected Not Detected LAB MICROBIOLOGY METHOD 05/28/2024 7:11 PM [facility] Human Metapneumovirus A and B Not Detected Not Detected LAB MICROBIOLOGY METHOD 05/28/2024 7:11 PM [facility] Rhinovirus/Entero virus Not Detected Not Detected LAB MICROBIOLOGY METHOD 05/28/2024 7:11 PM [facility] Bordetella pertussis Not Detected Not Detected LAB MICROBIOLOGY METHOD 05/28/2024 7:11 PM [facility] Bordetella parapertussis Not Detected Not Detected LAB MICROBIOLOGY METHOD 05/28/2024 7:11 PM [facility] Mycoplasma pneumo by PCR Not Detected Not Detected LAB MICROBIOLOGY METHOD 05/28/2024 7:11 PM [facility] Chlamydia pneumoniae Not Detected Not Detected LAB MICROBIOLOGY METHOD 05/28/2024 7:11 PM [facility] SARS COV-2 Not Detected Not Detected LAB MICROBIOLOGY METHOD 05/28/2024 7:11 PM [facility] Swab Both anterior nares / Unknown Non-blood Collection / Unknown 05/28/2024 4:34 PM EST 05/28/2024 4:34 PM EST [facility] - 05/28/2024 7:11 PM EST Testing was performed using the [employer] Respiratory Pathogen PCR Assay. All results must be correlated with the clinical findings. Results should not be used as the sole basis for diagnosis. False Negative results may occur from the presence of sequence variants in the region targeted by the assay or the presence of inhibitors. Results may be affected by concurrent antiviral/antimicrobial therapy or levels of organisms that are below the limit of detection. Bernard Uriarte MD LAB MICROBIOLOGY - GENERAL ORDFreddy [facility] Final Result [facility] [address] [place] [address], [place] [phone] * XR Chest 2 Views (05/28/2024 3:39 PM EST) Anatomical Region Laterality Modality Body Radiographic Yessica ging 05/28/2024 4:01 PM EST Impressions 05/28/2024 4:02 PM EST Impression: No evidence of active pathology in the chest. -------- FINAL REPORT -------- Dictated By: Lino Lane Dictated Date: 05/28/2024 16:01 ET Assigned Physician: Lino Lane Reviewed and Electronically Signed By: Lino Lane Signed Date: 05/28/2024 16:02 ET Workstation ID: [id number] Transcribed By: Self Edit Transcribed Date: 05/28/2024 16:01 ET Narrative 05/28/2024 4:02 PM EST History: Cough. Chest PA and lateral: Compared to 02/13/2024. ??The lungs remain clear. ??There are no infiltrates or effusions. The vasculature is not congested. The cardiac and mediastinal silhouettes appear normal. ??Bony structures remain intact. Procedure Note Lino Lane MD - 05/28/2024 History: Cough. Chest PA and lateral: Compared to 02/13/2024. The lungs remain clear.There are no infiltrates or effusions. The vasculature is not congested.The cardiac and mediastinal silhouettes appear normal. Bony structuresremain intact. IMPRESSION: Impression: No evidence of active pathology in the chest. -------- FINAL REPORT -------- Dictated By: Lino Lane Dictated Date: 05/28/2024 16:01 ET Assigned Physician: Lino Lane Reviewed and Electronically Signed By: Lino Lane Signed Date: 05/28/2024 16:02 ET Workstation ID: [id number] Transcribed By: Self Edit Transcribed Date: 05/28/2024 16:01 ET us Bernard Uriarte MD IMG XR PROCEDURES Final Result * Colonoscopy (12/04/2023) Colonoscopy no interpretation , abstracted Anatomical Region Laterality Modality Other Historical Provider HEALTH MAINTENANCE Final Result * SCREENING MAMMOGRAPHY BI 2-VIEW BREAST INC CAD (10/05/2023 9:13 AM EDT) Anatomical Region Laterality Modality Radiographic Yessica ging 09/27/2022 6:47 PM EDT Narrative 10/05/2023 4:55 PM EDT This is a summary report. The complete report is available in the patient's medical record. If you cannot access the medical record, please contact the sending organization for a detailed fax or copy. Exam: Screening mammogram Findings: Digital bilateral full-field screening mammography is performed with tomosynthesis and interpreted with the aid of computer-aided detection. ??Comparison is made with 09/27/2022 and as far back as 01/24/2019. Breast parenchyma is composed of scattered fibroglandular densities. ??No new suspicious mass, architectural distortion, or suspicious calcifications. Impression: No mammographic evidence of malignancy. BI-RADS 1 - negative Procedure Note Ashlee Azar MD - 03/03/2024 This is a summary report. The complete report is available in thepatient's medical record. If you cannot access the medical record, pleasecontact the sending organization for a detailed fax or copy. Exam: Screening mammogram Findings: Digital bilateral full-field screening mammography is performedwith tomosynthesis and interpreted with the aid of computer-aideddetection. Comparison is made with 09/27/2022 and as far back as01/24/2019. Breast parenchyma is composed of scattered fibroglandular densities. Nonew suspicious mass, architectural distortion, or suspiciouscalcifications. Impression: No mammographic evidence of malignancy. BI-RADS 1 - negative Bernard Uriarte MD IMG XR PROCEDURES Final Result * Hepatitis C Screening (03/19/2018) Hepatitis C Screening abstracted Historical Provider HEALTH MAINTENANCE Final Result from Last 3 Months or Most Recently Relevant to Health Maintenance Insurance * Guarantor: Chiquita Brown Account Type Relation to Patient Date of Phone Billing Address Personal/Family Self [address] [place] [id number] [employer] MEDICARE Care Teams Subscription Crew Leader Relationship Specialty Start Date End Date Bernard Uriarte MD [address] [place] [address] PCP - General Internal Medicine 06/05/24
--- OUTSIDE RECORDS SUMMARY | 2024-08-28 09:35 | XMS_ITS | Patient Health Record ---
Author Organization [facility] Address [address] [address] Care Team Providers Care Manager Cardiac Cath Name Role Phone eBrnard Uriarte Primary Care Provider Unavailabl e Surya Dasilvamie Unavailable [phone] Marika ROBERSON, Antonia Unavailable Unavailable Allergies No Known Allergies Results Component Value Reference Range Notes X ray : Foot, left 3V Reviewed date:08/27/2024 12:16:02 PM Interpretation:See Examination above Performing Lab: Notes/Report: See Examination above X ray : Foot, right 3V Reviewed date:08/27/2024 12:16:17 PM Interpretation:See Examination above Performing Lab: Notes/Report: See Examination above Reason For Referral No Information Medications Medication SIG (Take, Route, Frequency, Duration) Notes Start Date End Date Status CeleBREX 200 MG 1 capsule Orally Onc e a day Active Lipitor 80 MG 1 tablet Orally Once a day Active Gemfibrozil 600 MG 1 tablet Orally Twic e a day Active Lexapro Active Ozempic Active Ciclopirox 0.77 % 1 application to affected area Externally Twice a day to effected nails for 30 days 12/12/2022 Not-Taking Restasis Active Night Splint AFO - L1930 as directed 12/14/2017 Not-Taking Escitalopram Oxalate Active Omeprazole 20 MG 2 capsules Orally On ce a day Active amLODIPine Besylate 5 MG 1 tablet Orally Once a day Active Aspir-81 81 MG 1 tablet Orally Once a day Active ProAir HFA 108 (90 Base) MCG/ACT 2 puffs as needed Inhalation every 4 hrs Active Ciclopirox 0.77 % 1 application to affected area Externally Twice a day to effected nails for 30 days 08/27/2024 Active Immunizations Vaccine Route Administration Date Status Comme nts COVID-19 Pfizer BioNTech Vaccine Unknown 09/21/2020 Administered 1st vaccine Social History Tobacco Use: Social History Observation Description Date Details (start date - stop date) Never Smoker NA - NA Tobacco use other than smoking: Question Answer Notes Are you an other tobacco user? No Tobacco Control (Standard) Question Answer Notes Tobacco use: Nonsmoker Additional Findings: Tobacco non-user Current no nsmoker Problems Problem Type SNOMED Code ICD Code Onset Dates Problem Status W/U Status Risk Notes Problem Localized, primary osteoarthritis of the ankle and/or foot (574264911) Primary osteoarthritis, right ankle and foot (M19.071) Active confirmed Problem Localized, primary osteoarthritis of the ankle and/or foot (008053401) Primary osteoarthritis, left ankle and foot (M19.072) Active confirmed Problem Acquired hallux rigidus (7141736) Hallux rigidus, right foot (M20.21) Active confirmed Problem 51174947 Acquired equinus deformity of left foot (M21.6X2) Active confirmed Problem 13950097 Acquired equinus deformity of right foot (M21.6X1) Active confirmed Problem Osteoarthritis of midtarsal joint of left foot (1615503263730287 ) Osteoarthritis of midtarsal joint of left foot (M19.072) Active confirmed Problem Osteoarthritis of midtarsal joint of right foot (6596594550521110 ) Osteoarthritis of midtarsal joint of right foot (M19.071) Active confirmed Vital Signs Blood pressure diastolic 73 mm Hg 08/27/2024 Height 5 ft in 08/27/2024 Blood pressure systolic 121 mm Hg 08/27/2024 Weight 175 lbs 08/27/2024 BMI 34.17 kg/m2 08/27/2024 Encounters Encounter Location Date Provider Diagnosis [facility] [address] [address] 08/27/2024 Nubia Black Pain in left foot M79.672 ; Osteoarthritis of midtarsal joint of left foot M19.072 ; Pain in left ankle and joints of left foot M25.572 ; Bursitis of left foot M77.52 ; Pain in right foot M79.671 ; Pain in right ankle and joints of right foot M25.571 ; Bursitis of right foot M77.51 ; Osteoarthritis of midtarsal joint of right foot M19.071 ; Pain in left toe(s) M79.675 and Tinea unguium B35.[address] [facility] [address] [address] 03/14/2024 Nubia Dasilva Assessments Encounter Date Diagnosis (ICD Code) Assessment Notes Treatment Notes Treatment Clinical Notes Section Notes 08/27/2024 Pain in left foot (ICD-10 - M79.672) 08/27/2024 Osteoarthritis of midtarsal joint of left foot (ICD-10 - M19.072) 08/27/2024 Pain in left ankle and joints of left foot (ICD-10 - M25.572) 08/27/2024 Bursitis of left foot (ICD-10 - M77.52) 08/27/2024 Pain in right foot (ICD-10 - M79.671) 08/27/2024 Pain in right ankle and joints of right foot (ICD-10 - M25.571) 08/27/2024 Bursitis of right foot (ICD-10 - M77.51) 08/27/2024 Osteoarthritis of midtarsal joint of right foot (ICD-10 - M19.071) 08/27/2024 Pain in left toe(s) (ICD-10 - M79.675) 08/27/2024 Tinea unguium (ICD-10 - B35.1) Plan Of Treatment Pending Test Test Name Order Date MRI : Foot, right 12/21/2020 X ray : Foot, right 3V 11/13/2017, [id number]/INJECT, JOINT/BURSA 0 12/17/2019, J6771-EOGCB/INJECT, JOINT/BURSA 0 02/04/2020, U3200-SIVXY/INJECT, JOINT/BURSA 0 10/25/2021, A3588-RPREY/INJECT, JOINT/BURSA 0 10/22/2020, U5799-XBCNQ/INJECT, JOINT/BURSA 0 11/13/2017,J1766-LMY TENDON SHEATH/LIGAMENT 0 03/17/202085984,R3103-STA TENDON SHEATH/LIGAMENT 0 12/14/2017 IV as clinically indicated by Radiologis t w,w/o contrast 12/21/2020 Insurance Providers Payer Name Payer Address Payer Phone Subscriber Number Group Number Insured Name Patient Relationship to Insured Coverage Start Date Coverage End Date [employer] Medicare Complete [address] [address] [place] [address] [id number] Chiquita Brown Self - patient is the insured Medical (General) History Medical History History ICD Code Arthritis asthma Back,Hip,and Knee pain Depression High blood pressure Raynauds syndrome Chicken pox Stroke September Surgical History Surgery Date(Month/Year) carpal tunnel surgery section knee surgery, right meniscus, left knee 07/18/24 Hospitalization History Reason Date(Month/Year) [facility] stroke mild 10/02/2022 Urgent care left foot fracture 12/2016
--- OUTSIDE RECORDS SUMMARY | 2024-08-28 09:35 | XMS_ITS ---
Author Organization [facility] Address [address] [place] [address] Care Team Providers Care Fish Rod Maker Name Role Phone Bernard Uriarte Primary Care Provider UnavailNubia Pink [phone] Marika ROBERSON, Antonia Unavailable Unavailable Encounters Encounter Location Date Provider Diagnosis [address] [place] [address] 03/18/2024 Nubia Dasilva Plan Of Treatment No Information Progress Notes * Chiquita BROWN ADOB: [birth year] (79 yo F)Acc No.[id number]:03/18/2024 Progress Note Patient:?Chiquita BROWN Provider:?Nubia Dasilva DPM :1945???Age:78 Y???Sex:Female D ate:03/18/2024 Address:[address] [place], [place] [id number] Pcp:Bernard Uriarte Subjective: * Chief Complaints: * ??? * Medical History:? Objective: * Vitals:? Assessment: Plan: * Treatment: * Images: * The named appointment provid er may or may not be the originator of this progress note, and it is not deemed complete until electronically signed by the appointment provider. Sign off status: Pending * Provider:Clementina Dasilva DPM Date:?2023 Generated for Jenna little/Anthony/eTransmitting on:?08/28/2024 09:35 AM EST
--- OUTSIDE RECORDS SUMMARY | 2024-08-28 09:35 | XMS_ITS | Clinical Summary ---
Author Organization [facility] Address [phone] [facility] [place] [address] Care Team Providers Care Mobile Application Architect Name Role Phone Pcp, Unknown Primary Care Provider Unavailabl e Allergies No known active allergies Social History Tobacco Use Types Packs/Day Years Used Date Smoking Tobacco: Never Assessed Education Answer Date Recorded Are you interested in more education? Not on sidra e 06/22/2023 Are you concerned about learning? Not on file 06/22/2023 No 06/22/2023 No 06/22/2023 Digital Access Answer Date Recorded No 06/22/2023 No 06/22/2023 Reliable internet access at home? Not on file 06/22/2023 Device with a working camera? Not on file Intimate Partner Violence Answer Date R ecorded Are you denied basic needs s uch as food, clothing, or medical care? No 06/22/2023 In the past 12 months have y ou been in a relationship with a person who hurts, threatens, or tries to control you? No 06/22/2023 Are you denied basic needs s uch as food, clothing, or medical care? No 06/22/2023 In the past 12 months have y ou been in a relationship with a person who hurts, threatens, or tries to control you? No 06/22/2023 Sex and Gender Information Value Date Recorded Sex Assigned at Not on file Gender Identity Not on file Sexual Orientation Not on file Last Filed Vital Signs Vital Sign Reading Time Taken Comments Blood Pressure 136/89 06/23/2023 12:06 AM EST Pulse 76 06/23/2023 12:06 AM EST Temperature 36.4 ??C (97.5 ??F) 06/23/2023 12:[address] Respiratory Rate 15 06/23/2023 12:06 AM EST Oxygen Saturation 98% 06/23/2023 12:06 AM EST Inhaled Oxygen Concentration - - Weight - - Height - - Body Mass Index - - Plan of Treatment Not on file Medical Devices Not on file Care Teams Mobile Application Architect Relationship Specialty Start Date End Date Pcp, Unknown PCP - General 06/22/23 Additional Source Comments The information contained in this document represents components of the legal health record. It is not the complete legal health record.[facility]
--- OUTSIDE RECORDS SUMMARY | 2024-08-28 09:35 | XMS_ITS ---
Author Organization [facility] Address [address] [facility] [place] [address] Care Team Providers Care Otm Consultant Name Role Phone Bernard Uriarte Primary Care Provider Unavailabl e Black, Nubia Unavailable [phone] Marika ROBERSON, Antonia Unavailable Unavailable Allergies No Known Allergies Results Component Value Reference Range Notes X ray : Foot, left 3V Reviewed date:08/27/2024 12:16:02 PM Interpretation:See Examination above Performing Lab: Notes/Report: See Examination above X ray : Foot, right 3V Reviewed date:08/27/2024 12:16:17 PM Interpretation:See Examination above Performing Lab: Notes/Report: See Examination above REASON FOR VISIT Foot pain, Painful nail(s) aggravated by shoes causing difficulty standing/walking Medications Medication SIG (Take, Route, Frequency, Duration) Notes Start Date End Date Status ProAir HFA 108 (90 Base) MCG/ACT 2 puffs as needed Inhalation every 4 hrs Active Ciclopirox 0.77 % 1 application to affected area Externally Twice a day to effected nails for 30 days 08/27/2024 Active Lexapro Active Ciclopirox 0.77 % 1 application to affected area Externally Twice a day to effected nails for 30 days 12/12/2022 Not-Taking Night Splint AFO - L1930 as directed 12/14/2017 Not-Taking Omeprazole 20 MG 2 capsules Orally On ce a day Active amLODIPine Besylate 5 MG 1 tablet Orally Once a day Active Aspir-81 81 MG 1 tablet Orally Once a day Active Lipitor 80 MG 1 tablet Orally Once a day Active Gemfibrozil 600 MG 1 tablet Orally Twic e a day Active CeleBREX 200 MG 1 capsule Orally Onc e a day Active Ozempic Active Restasis Active Escitalopram Oxalate Active Social History Tobacco Use: Social History Observation [...] Problem Status W/U Status Risk Notes Problem Osteoarthritis of midtarsal joint of left foot (0172603243922317 ) Osteoarthritis of midtarsal joint of left foot (M19.072) Active confirmed Problem Osteoarthritis of midtarsal joint of right foot (4118349779356055 ) Osteoarthritis of midtarsal joint of right foot (M19.071) Active confirmed Vital Signs Height 5 ft in 08/27/2024 Weight 175 lbs 08/27/2024 BMI 34.17 kg/m2 08/27/2024 Blood pressure systolic 121 mm Hg 08/27/19 25 Blood pressure diastolic 73 mm Hg 025 Encounters Encounter Location Date Provider Diagnosis [facility] [address] 08/27/2024 Nubia Black Pain in left foot [...] left toe(s) M79.675 and Tinea unguium B35.1 Assessments Encounter Date Diagnosis (ICD Code) Assessment [...] unguium (ICD-10 - B35.1) Plan Of Treatment Medication Medication Name Sig Start Date Stop Date Notes Ciclopirox 0.77 % 1 application to aff ected area Externally Twice a day to effected nails for 30 days 08/27/2024 Next Appt Details Follow Up: prn, Reason: Progress Notes * Chiquita BROWN ADOB: 8 (79 yo F)Acc No.[id number]:08/27/2024 Progress Note Patient:?Chiquita BROWN Provider:?Nubia Dasilva DPM :1945???Age:79 Y???Sex:Female D ate:08/27/2024 Address:[address] [place], [place] [id number] Pcp:Bernard Uriarte Subjective: * Chief Complaints: * ???Foot painPainful nail(s) aggravated by shoes causing difficulty standing/walking * HPI: ???Foot Pain:?Nature:?aching , stiffness , swelling , throbbing.?Location:?Top , Midfoot, B/L.?Duration:?, several months.?Onset:?unknown, denies trauma.?Course:?worse.?Treatments:?rest/alter normal daily activity, topical pain medication helps somewhat.?Painful Nails:?Pt States Last PCP Visit:?Date:?07/03/2024 * ROS:?General/Constitutional:?Nausea?denies.?Vomiting?denies.?Hunger Thirst?denies.?Loss appetite?denies.?Chills?denies.?Fatigue?denies.?Fever?denies.?Night Sweats?denies.?Unexplained weight loss?denies.?Ophthalmologic:?Blurred vision?denies.?Red eye?denies.?HEENTM:?Dentures?denies.?Dizziness?denies.?Glasses/contacts?admits.?Retinopathy?de nies.?Blurred/double vision?denies.?TMJ?denies.?Discharge/drainage?denies.?Implants?denies.?Hard of hearing denies.?Difficulty chewing/swallowing/speaking?denies.?Nose bleeds?denies.?Sore mouth?denies.?Swollen glands?denies.?Respiratory:?On Oxygen?denies.?Pneumonia/pleurisy?denies.?Bronchitis?denies.?Emphysema?denies.?C oughing?denies.?Cough blood?denies.?Shortness of breath?denies.?Wheezing?denies.?Cardiovascular:?Pacemaker?denies.?MVP?denies.?WPW?denies.?CHF?denies.?Heart attack?denies.?Septal defect?denies.?Rapid beat?denies.?Chest pain ?denies.?Atrial Fib.?denies.?Murmur/Palpitations?denies.?Gastrointestinal:?Hemorrhoids?denies.?Stomach/Abdominal pain?denies.?Dark blood stool?denies.?Irritable bowel ?denies.?Constipation?denies.?Diarrhea?denies.?Vomiting?denies.?Hematology:?Swelling?denies.?Bruising?denies.?Bleeding problem?denies.?Genitourinary:?Blood urine?denies.?Frequent/Painfu/urination/bladder control?denies.?Kidney stones?denies.?Infection (UTI)?denies.?Nephropathy?denies.?Musculoskeletal:?Hammertoes?denies.?Bunions?denies.?Scoliosis/kyphosis?denies.?Muscle cramps / walking?denies.?Generalized aches and pains?admits.?Weakness?denies.?Integ.:?Reyes?denies.?Scars?denies.?Corns/calluses?denies.?Ingrown nails?denies.?Painful nails?admits.?Rashes?denies.?Neurologic:?Difficulty sleeping?denies.?Bipolar?denies.?Brain disorder?denies.?Balance trouble?denies.?Confusion?denies.?Fainting/blackouts?denies.?Headache?denies.?Tr emors?denies.? * Medical History:? * Surgical History:?carpal isidra manjit surgery section knee surgery, right meniscus, left knee 07/18/24 * Hospitalization/Major Diagno stic Procedure:?Urgent care left foot fracture 12/2016[facility] stroke mild 10/02/2022 * Family History:?Mother: dece ased, diagnosed with Diabetic - NIDDM, Unspecified essential hypertension, Unspecified cerebral artery occlusion with cerebral infarction, Family history of arthritis.?Father: , diagnosed with Other malignant neoplasm of unspecified site.? * Social History:?Tobacco Use:?Tobacco use other than smoking?Are you an other tobacco user??No ?Tobacco Control (Standard)?Tobacco use:?Nonsmoker ?Additional Findings: Tobacco non-user?Current nonsmoker ???Drugs/Alcohol:?Drugs?Have you used drugs other than those for medical reasons in the past 12 months??No ?Alcohol Screen?Did you have a drink containing alcohol in the past year?: Yes, How often did you have a drink containing alcohol in the past year?: Monthly or less (1 point), Points: 1, Interpretation: Negative.?Miscellaneous:?Caffeine: yes, frequency:, 2-cups per day. ?Children: yes, 3. ?Exercise: yes, golf. ?Marital status: . ?Occupation: retired Customer service. * Medications:?TakingOzempic R estasis Escitalopram Oxalate CeleBREX 200 MG Capsule 1 capsule Orally Once a day Lipitor 80 MG Tablet 1 tablet Orally Once a day Gemfibrozil 600 MG Tablet 1 tablet Orally Twice a day Omeprazole 20 MG Capsule Delayed Release 2 capsules Orally Once a day amLODIPine Besylate 5 MG Tablet 1 tablet Orally Once a day Aspir-81 81 MG Tablet Delayed Release 1 tablet Orally Once a day ProAir HFA 108 (90 Base) MCG/ACT Aerosol Solution 2 puffs as needed Inhalation every 4 hrs Lexapro Taking Ozempic Taking Restasis Taking Escitalopram Oxalate Taking CeleBREX 200 MG Capsule 1 capsule Orally Once a day Taking Lipitor 80 MG Tablet 1 tablet Orally Once a day Taking Gemfibrozil 600 MG Tablet 1 tablet Orally Twice a day Taking Omeprazole 20 MG Capsule Delayed Release 2 capsules Orally Once a day Taking amLODIPine Besylate 5 MG Tablet 1 tablet Orally Once a day Taking Aspir-81 81 MG Tablet Delayed Release 1 tablet Orally Once a day Taking ProAir HFA 108 (90 Base) MCG/ACT Aerosol Solution 2 puffs as needed Inhalation every 4 hrs Taking Lexapro Not-Taking/PRNCiclopirox 0.77 % Gel 1 application to affected area Externally Twice a day to effected nails Night Splint AFO - L1930 as directed Medication List reviewed and reconciled with the patientNot-Taking/PRN Ciclopirox 0.77 % Gel 1 application to affected area Externally Twice a day to effected nails Not-Taking/PRN Night Splint AFO - L1930 as directed Medication List reviewed and reconciled with the patient * Allergies:?N.K.D.A.yes[Aller gies Verified] Objective: * Vitals:?Ht: 5 ft, Wt: 175, B IA: 34.17, Shoe size: 6, BP: 121/73 mm Hg, Wt-k.38 kg. * Examination: ???General Examination: ?GENERAL APPEARANCE:?good attention to hygiene, no acute distress, well developed, well nourished.?Orthopedic: ?GAIT ABNORMALITY:?Supinated, adducted angle and base of gate, B/L.?FOOT MORPHOLOGY:? Prominent, painful 1st Met-Cuneiform joint with inflammation, B/L.?DIGITAL DEFORMITIES:?Digital contracture, PIPJ, 2-5 B/L, incompl-reducible with WB, or to push-up test, no over, nor underlapping.?FOOTWEAR:?shoe gear properties exacerbate patients foot/toe deformity.?Neurological: ?SENSORY:?Neurological exam reveals intact sensorium, pain sensation normal, vibration sensation intact, pinprick sensation is normal in the lower extremities, Pt relates burning hyperesthesia.?TINEL'S COMPRESSION:? Negative, Medial dorsal cutaneous nerve distribution, Intermediate dorsal cutaneous nerve distribution, Deep peroneal nerve distribution, B/L , Negative, Lateral sural nerve distribution.?Vascular: ?DP PULSES (B):?2/4, B/L.?PT PULSES (B):?2/4, B/L.?CAPILLARY FILL TIME:?3 secs. per digit, B/L.?TROPHIC CONDITION-TEXTURE/ELASTICITY/TURGOR/HAIR GROWTH (B):?normal, B/L.?TEMPERTURE GRADIENT (C):?warm to cool, proximal to distal, B/L.?PIGMENTATION:?normal, B/L.?EDEMA (C):?absent, B/L.?Nails: ?NAILS are:?Elongated, overgrown, dystrophic, lytic, greater than 3mm thick, discolored and friable with crumbly malodorous subungual debris, with pain on palpation, TA.?X-Rays - IMAGING REPORT: ?Clinical Indication(s):? Evaluate for Fracture, Evaluate Biomechanical Deformity.?Views:?3 views of Foot, AP, LAT, LO, B/L??Taken by trained?Podiatric Nurse Auditor ([place]?).?Findings:?eburnation dorsal 1st MT/Cun. jt, dorsal degenerative changes of the tarsal joints, increase in soft tissue contour and density at the symptomatic site, radiolucent soft tissue gas absent, dorsal degenerative changes of the tarsal joints.?Fracture:?Negative fractures identified.? Assessment: * Assessment: 1.?Pain in left foot - M79.6 72???2.?Osteoarthritis of midtarsal joint of left foot - M19.072 (Primary)???Specify :Chronic problem, Worse (4)???3.?Pain in left ankle and joints of left foot - M25.572???4. Bursitis of left foot - M77.52???5.?Pain in right foot - M79.671???6.?Pain in right ankle and joints of right foot - M25.571???7.?Bursitis of right foot - M77.51???8.?Osteoarthritis of midtarsal joint of right foot - M19.071???Specify :Chronic problem, Worse (4)???9.?Pain in left toe(s) - M79.675???10.?Tinea unguium - B35.1???Specify :Rx drug management (4)??? Plan: * Treatment: 2.?Pain in right foot?Imaging: X ray : Foot, right 3V (Performed Date - 08/27/2024)?See Examination above 3.?Others? Start Ciclopirox Gel, 0.77 %, 1 application to affected area, Externally, Twice a day to effected nails, 30 days, 45 Gram, Refills 6.?? * Procedure Codes:?53779 X-RAY EXAM OF LEFT FOOT 3V, Modifiers: 26 , AH84312 X-RAY EXAM OF RIGHT FOOT 3V, Modifiers: 26 , RT * Preventive Medicine:? ??Counseling:?Discussion:?-14: Office or other outpatient visit for the evaluation and management of an established patient, which required a medically appropriate history and/or examination and MODERATE level of DECISION MAKING for: 1 OR MORE CHRONIC PROBLEM(S) THATS WORSENING, 2 STABLE CHRONIC PROBLEMS, A NEWLY DIAGNOSED PROBLEM WITH UNCERTAIN PROGNOSIS, AN ACUTE COMPLICATED INJURY WITH MULTIPLE TREATMENT OPTIONS, OR AN ACUTE PROBLEM WITH ACCOMPANYING SYSTEMIC SYMPTOMS, THAT POSE(S) A MODERATE RISK OF MORBIDITY. THIS CONDITION MAY ALSO INCLUDE RX DRUG MANAGEMENT, OR A DECISON FOR MINOR SURGERY. The visit on the day of the encounter encompassed interpreting the data and educating the patient as to the nature of their condition, treatment options available according to their individual PMH, meds, allergies, and overall health/living conditions, as well as any potential risks or complications that may occur from a failure to adhere to, and participate in, the recommended course of therapy. The discussion included a complete verbal, and/or written explanation of the examination results, any x-rays taken, the proposed diagnosis, and outline of the treatment plan. A schedule for future care needs was also explained. The patient verbalized an understanding of the instructions at this time and agreed to be an active participant in their treatment. If the patient should think of any questions or concerns after the visit, I have encouraged the patient to call the office.?Arthritis:?The Pt. was counseled on the x-rays,treatment options, and the importance of following all homecare instructions, The patient was counseled on the various etiologies for their Arthritis including genetic, history of injury or trauma, abnormal foot biomechanics leading to excessive joint wear, and use/overuse. We discussed the various treatment options from no treatment, to topical analgesics such as Biofreeze gel, Aspercream, Voltaren gel, Lidoderm patches, CBD oils, THC creams, and Custom-compounded topical cream preparations to natural oral products such as Glucosamine Sulfate/Chondroitin/MSM/Collegen to analgesic Tylenol, to anti-inflammatory medications such as Ibuprofen/Naproxen, and the use of oral steroids if needed. Cardiac, Kidney, and GI issues were discussed RE: potential complications of oral anti-inflammatories. We discussed several other treatment options consisting of accom shoes, supportive innersoles, AFO bracing/support, cortisone injection therapy, and surgical resection of the arthritic joint(s) or fusion reconstruction if necessary. We discussed the advantages and disadvantages of conservative (vs) surgical treamtents including pain relief, improved function/activities of daily life, return to exercise to failure, expense, systemic complications, infection, [id number], prolongued postop course. Patient questions re: the various treatment options available, their successes and potential failures, and termite exterminator helper effects were discussed and the answers were verbally confirmed understood, Discussed and recommended topical creams for relief- pt is going to call me with the nam eof the cream she has been using of her husbands.?Fungal Nail Counseling:?The patient was counseled on the diagnosis, potential etiologies (including, but not limited to, environmental factors, genetic, immune deficiency), and the multiple treatment options for Onychomycosis. We discussed the risks and benefits of each option from performing no treatment, to ultraviolet light shoe treatment, to laser nail treatment, to applying topical antifungals, to taking oral antifungal medication, to surgical removal of the involved nail(s) with or without performing a matricectomy, or any combination thereof. We discussed the advantages and disadvantages of each of possible treatment and importance for adherence to all the recommended therapies for optimum success. This includes the necessity for weekly emery board self nail home debridements, and control the nail and skin environment as much as possible by only using a fresh, dry pair of shoes/socks each day, as well as keeping the skin as dry as possible through the use of sprays/powders if necessary. The patient was instructed to discard the emery board after use to prevent reinfection of the involved nail(s). We discussed the mycological and visual clinical effectiveness of topical vs oral antifungal treatments as well as each ones potential side effects and/or any patient- specific medication interactions. We discussed the reasons behind the important requirement of regular liver function testing with oral antifungal therapy for safety. Patient questions regarding use, dosage, successful outcomes, blood tests, and possible pharmaceutical interactions were reviewed and the patient verbalized that all answers were clearly understood, The patient presently prefers topical treatment.? ??Screening/Special Tests:?Fall Risk?Screening:?No falls in the past year ?FALLS: Screening for Future Fall Risk?Have you had any falls with injury in the past year??No * Follow Up:?prn * Images: * Sign off status: Completed true * Provider:?Nubia Dasilva DPM Date:?2024 Generated for Jenna ilttle/Anthony/Debraitting on:?08/28/2024 09:35 AM EST History and Physical Notes * HPI (History of Present Illness) Category Sub-Category Detail Notes Category Not es Painful Nails Pt States Last PCP Visit: Date:: 07/03/2024 Foot Pain Nature: aching , stiffne ss , swelling , throbbing Location: Top , Midfoot, B/L Duration: , several months Onset: unknown, michelleies sarah farmer Course: worse Treatments: rest/alter normal da aly activity, topical pain medication helps somewhat Examination Category Sub-Category Detail Notes Category Not es Neurological SENSORY: Neurological exa m reveals intact sensorium, pain sensation normal, vibration sensation intact, pinprick sensation is normal in the lower extremities, Pt relates burning hyperesthesia TINEL'S COMPRESSION: Negative, Medial do rsal cutaneous nerve distribution, Intermediate dorsal cutaneous nerve distribution, Deep peroneal nerve distribution, B/L , Negative, Lateral sural nerve distribution Orthopedic GAIT ABNORMALITY: Supinated, adducted ang le and base of gate, B/L FOOT MORPHOLOGY: Prominent, painful 1 st Met-Cuneiform joint with inflammation, B/L FOOTWEAR: shoe gear properties exacerbate patients foot/toe deformity DIGITAL DEFORMITIES: Digital contracture , PIPJ, 2-5 B/L, incompl-reducible with WB, or to push-up test, no over, nor underlapping General Examination GENERAL APPEARANCE: good att ention to hygiene, no acute distress, well developed, well nourished Vascular DP PULSES (B): 2/4, B/L PT PULSES (B): 2/4, B/L CAPILLARY FILL TIME: 3 secs. per digit, B/L TEMPERTURE GRADIENT (C): warm to cool, p roximal to distal, B/L TROPHIC CONDITION-TEXTURE/ELASTICITY/TURGOR/HAIR GROWTH (B): normal, B/L EDEMA (C): absent, B/L PIGMENTATION: normal, B/L Nails NAILS are: Elongated, overg rown, dystrophic, lytic, greater than 3mm thick, discolored and friable with crumbly malodorous subungual debris, with pain on palpation, TA X-Rays - IMAGING REPORT Findings: eburnati on dorsal 1st MT/Cun. jt, dorsal degenerative changes of the tarsal joints, increase in soft tissue contour and density at the symptomatic site, radiolucent soft tissue gas absent, dorsal degenerative changes of the tarsal joints Fracture: Negative fractures i dentified Views: 3 views of Foot, AP, LAT, LO, B/L Taken by trained Podiatric Nurse Auditor ([place] ) Clinical Indication(s): Evaluate for Fra cture, Evaluate Biomechanical Deformity
--- OUTSIDE RECORDS SUMMARY | 2024-08-28 09:35 | XMS_ITS ---
Author Organization [facility] Address [address] [facility] [place] [address] Care Team Providers Care Dental Cream Maker Name Role Phone Bernard Uriarte Primary Care Provider Unavailabl e Brown, Nubia Unavailable [phone] Marika ROBERSON, Antonia Unavailable Unavailable REASON FOR VISIT 03/18/24 appt Encounters Encounter Location Date [facility] [address] [address] 03/14/2024 Nubia Dasilva Plan Of Treatment No Information Progress Notes * Chiquita BROWN ADOB: 8 (78 yo F)Acc No.[id number]:03/14/2024 Patient:?Chiquita Brown :1945???Age:78 Y???Sex:Female Address:[address] [place] [address] [address], [facility] [place] [address] * true * Date:? Generated for Jenna little/Anthony/eTransmitting on:?08/28/2024 09:35 AM EST
--- OUTSIDE RECORDS SUMMARY | 2024-08-28 09:36 | XMS_ITS | Encounter Summary ---
Author Organization [facility] Address [address] [place] [address] Care Team Providers Care Dealership General Manager Name Role Phone Bernard Uriarte MD Primary Care Provider [phone] Encounter Details Date Type Department Care Team (Late st Contact Info) Description 06/22/2024 Nurse Triage Talent Acquisition Director - [facility] [address] [place] [address] Bernard Uriarte MD [address] [place] [address] Social History Tobacco Use Types Packs/Day Years Used Date Smoking Tobacco: Former Cigarettes Q uit: 07/16/1969 Smokeless Tobacco: Never Alcohol Use Standard Drinks/Week Comments Yes 0 (1 standard drink = 0.6 oz pur e alcohol) Comments No Sex and Gender Information Value Date Recorded Sex Assigned at Not on file Legal Sex Female 8:05 PM EST Gender Identity Not on file Sexual Orientation Not on file documented as of this encounter Progress Notes * Ivone Canchola, TYE - 06/25/2024 2:27 PM EST Spoke with pt she declined appt to see a provider regarding her sinus congestion. Pt states she wastaking Mucinex but doesn't want to take it anymore. I told pt what Dr. Uriarte said about making another appt here or [facility] but pt states she has appt with PCP on 07/04 so she will wait until then. * Haily Kaur MA - 06/23/2024 4:57 PM EST left message to call back, please put call through to [phone] or resend to med/ped if no answer * Bernard Uriarte MD - 06/23/2024 9:22 AM EST Patient needs to be seen as symptoms have persisted more than 4 weeks. Please schedule with anyone who has availability this week or advised to go to urgent care. documented in this encounter Plan of Treatment Upcoming Encounters Date Type Department Care Team (Late st Contact Info) Description 09/16/2024 8:30 AM EST Office Visit Bariatric Surgery - [place] [facility] [address] [phone] Charlie Matute MD [address] [address] 09/16/2024 9:30 AM EST Nutrition Bariatric Surgery - [place] [facility] [address] [phone] Shell Andrews, RD [address] [address] 10/16/2024 9:00 AM EDT Appointment Radiology Department - [address] [address] 01/26/2025 9:45 AM EDT Office Visit Pulmonolgy - [facility] [address] [phone] Kaela Costa MD [address] [address] documented as of this encounter Visit Diagnoses Not on filedocumented in this encounter Care Teams Dealership General Manager Relationship Specialty Start Date End Date Bernard Uriarte MD [address] [place] [address] PCP - General Internal Medicine 06/05/24 documented as of this encounter
--- OUTSIDE RECORDS SUMMARY | 2024-08-28 09:36 | XMS_ITS | Encounter Summary ---
Author Organization [facility] Address [phone] [place] [address] Care Team Providers Care Carton Liner Name Role Phone Pcp, Unknown Primary Care Provider Unavailabl e Encounter Details Date Type Department Care Team (Late st Contact Info) Description 06/22/2023 Procedure Pass [facility], Ct Scan - [address] [address] Social History Tobacco Use Types Packs/Day Years [...] on file documented as of this encounter Plan of Treatment Not on file documented as of this encounter Visit Diagnoses Not on filedocumented in this encounter Care Teams Carton Liner Relationship Specialty Start Date End Date Pcp, Unknown PCP - General 06/22/23 documented as of this encounter Additional Source Comments The information contained in this document represents components of the legal health record. It is not the complete legal health record.[facility]
--- OUTSIDE RECORDS SUMMARY | 2024-08-28 09:36 | XMS_ITS | Encounter Summary ---
Author Organization [facility] Address [address] [place] [address] Care Team Providers Care Survey Interviewer Name Role Phone Bernard Uriarte MD Primary Care Provider [phone] Reason for Visit * Reason Onset Date Comments Medical Records 07/30/2024 Encounter Details Date Type Department Care Team (Late st Contact Info) Description 07/30/2024 Telephone [facility] Cardiology [facility] [address] [place] [phone] Bernard Uriarte MD [address] [place] [address] Medical Records Social History Tobacco Use Types Packs/Day Years [...] as of this encounter Progress Notes * Luisa Garcia - 07/30/2024 10:50 AM EST Faxed 10/11/2022 Office Note and 10/02/2022 Cath Report to [facility] Att: Gina at [phone] on06/18/2024 documented in this encounter Plan of Treatment Upcoming Encounters Date Type Department Care Team (Late st Contact Info) Description 09/16/2024 8:30 AM EST Office Visit Bariatric Surgery - [place] [address] [phone] Charlie Matute MD [address] [address] 09/16/2024 9:30 AM EST Nutrition Bariatric Surgery - [place] [address] [phone] Shell Andrews, [place] [address] [address] 10/16/2024 9:00 AM EDT Appointment Radiology Department [address] [address] 01/26/2025 9:45 AM EDT Office Visit Pulmonolgy - [place] [address] [address] Kaela Costa MD [address] [address] documented as of this encounter Visit Diagnoses Not on filedocumented in this encounter Care Teams Survey Interviewer Relationship Specialty Start Date End Date Bernard Uriarte MD [address] [place] [address] PCP - General Internal Medicine 06/05/24 documented as of this encounter
--- OUTSIDE RECORDS SUMMARY | 2024-08-28 09:36 | XMS_ITS | Encounter Summary ---
Author Organization [facility] Address [phone] [place] [address] Care Team Providers Care Nursing Staffing Coordinator Name Role Phone Pcp, Unknown Primary Care Provider Unavailabl e Encounter Details Date Type Department Care Team (Late st Contact Info) Description 06/22/2023 Procedure Pass [facility], Ct Scan - [address] [address] Social History Tobacco Use Types Packs/Day Years [...] on filedocumented in this encounter Care Teams Nursing Staffing Coordinator Relationship Specialty Start Date End Date Pcp, Unknown PCP - General 06/22/23 documented as of this encounter Additional Source Comments The information contained in this document represents components of the legal health record. It is not the complete legal health record.[facility]
--- OUTSIDE RECORDS SUMMARY | 2024-08-28 09:36 | XMS_ITS | Encounter Summary ---
Author Organization [facility] [place] [address] Care Team Providers Care Seafood Technology Specialist Name Role Phone Bernard Uriarte MD Primary Care Provider [phone] Reason for Visit * Reason Onset Date Comments PROVIDER CALLBACK 07/23/2024 Please see 07-20 [employer] message Medical Records 07/23/2024 Encounter Details Date Type Department Care Team (Late st Contact Info) Description 07/23/2024 Telephone [facility] [place] [address] [place] [address] Bernard Uriarte MD [address] [place] [address] PROVIDER CALLBACK (Please see 07-20-24 [employer] message); Medical Records Social History Tobacco Use Types [...] as of this encounter Progress Notes * Haily Kaur MA - 07/24/2024 9:39 AM EST Pt notified of message below and stated that she will start medicatuon and will give us a call if get any side effects. * Bernard Uriarte MD - 07/24/2024 9:25 AM EST Please call patient and inform that the common side effects of Fosamax are stomach pain, heartburn,constipation, diarrhea, indigestion, nausea, bone and joint or muscle pain. One of the severe side effects is jaw pain and mouth sores. Please let me know if she would still like to continue with the medication if not then I can removeit from her list. * Vianey Calhoun MA - 07/23/2024 4:53 PM EST Spoke with pt, she is upset that no response was sent to her 07/20 [employer] msg. Pt was not aware a prescription was sent until she called today. Upon reviewing 07/20 message, it was never routed anywhere. Pt would like further info on what the side effects of fosamax are. * Amanda Bacon - 07/23/2024 2:40 PM EST Caller requesting call back from provider: Is the caller the patient? YES If caller is not the patient, what is the callers name? N/A Callers relationship to patient? N/A If person calling is not the patient themselves, is there a verbal release in FYI or permanent comments for this person: NO Reason for call back: pt states that she would like a call back or written response to her 07-20-24 [employer] message. Pt is aware of script sent to pharmacy but insist on getting a callback or written response. Caller offered to speak with the nurse for assistance: YES Response: pls call patient. [phone] documented in this encounter Plan of Treatment Upcoming Encounters Date Type Department Care Team (Late st Contact Info) Description 09/16/2024 8:30 AM EST Office Visit Bariatric Surgery - [place] [address] [phone] Charlie Matute MD [address] [address] 09/16/2024 9:30 AM EST Nutrition Bariatric Surgery - [place] [address] [phone] [phone] 10/16/2024 9:00 AM EDT Appointment Radiology Department [address] [address] 01/26/2025 9:45 AM EDT Office Visit Pulmonolgy - [place] [address] [phone] Kaela Costa MD [address] [address] documented as of this encounter Visit Diagnoses Not on filedocumented in this encounter Care Teams Seafood Technology Specialist Relationship Specialty Start Date End Date Bernard Uriarte MD [address] [place] [address] PCP - General Internal Medicine 06/05/24 documented as of this encounter
--- OUTSIDE RECORDS SUMMARY | 2024-08-28 09:36 | XMS_ITS | Encounter Summary ---
Author Organization [facility] Address [phone] [place] [address] Care Team Providers Care Envelope Stamping Machine Operator Name Role Phone Pcp, Unknown Primary Care Provider Unavailabl e Encounter Details Date Type Department Care Team (Late st Contact Info) Description 06/22/2023 Procedure Pass [facility], Ct Scan - [address] [address] Social History Tobacco Use Types Packs/Day Years [...] on filedocumented in this encounter Care Teams Envelope Stamping Machine Operator Relationship Specialty Start Date End Date Pcp, Unknown PCP - General 06/22/23 documented as of this encounter Additional Source Comments The information contained in this document represents components of the legal health record. It is not the complete legal health record.[facility]
--- OUTSIDE RECORDS SUMMARY | 2024-08-28 09:36 | XMS_ITS | Data Portability ---
Author Organization [place] [facility], Allergy Address [address] [place] [phone] Care Team Providers Care Industrial Welder Name Role Phone OSVALDO GARCIA Primary Care Provider Assessment Encounter Date Assessment Date Assessment LastModified by Organization Details LastModified Time 04/18/2024 04/18/2024 78-year-old female with a history of reflux on omeprazole twice a day presents today for evaluation of sore throat over the summer, since less intense but persistent. On exam, tonsils are absent. There is no neck adenopathy. Flexible laryngoscopy does not reveal any ulceration or asymmetry. Reassurance was given. She should continue her omeprazole. I recommended salt water gargles. Follow-up for any new or worsening symptoms. She has a secondary concern for some scaling in her left EAC meatus. No ulceration there, but some dry skin. Exam appears most consistent with eczema I recommended against Q-tip use. She could try Lotrisone sparingly as needed. [email or web address] Not available 04/21/2024 08:38:16 Plan of Treatment Reminders Order Date Submit Date Provider Last Modified By Organization Details Last Modified Time Details Appointments None recorded. Lab None recorded. Referral None recorded. Procedures None recorded. Surgeries None recorded. Imaging None recorded. Medication Orders clotrimaz ole-betam ethasone 1 %-0.05 % topical cream [id number], [id number] [facility], [place], [address], 13:22:56 Patient TargetsNo targets recorded. Patient InstructionsNo instructions recorded. Reason for Referral None Reported. Problems Name Problem SNOMED Code Status Onset Date Resolution Date Notes Provider Name and Address Organization Details Recorded Time Chronic otitis externa 51054170 Active 2023 VLADIMIR SIMPSON MD [address] [address], [place], [phone], [facility] 4 13:21:40 Gastroesophage al reflux disease without esophagitis 306336029 Active 2023 VLADIMIR SIMPSON MD [address] [place] [address], [place], [phone], [facility] - [facility] 08:36:07 Chronic pharyngitis 025260 Active 2023 VLADIMIR SIMPSON MD [address] [address], [place], [address], [facility] 08:36:37 Problem Notes None recorded. Procedures Surgical History Date Name Laterality Status Provider Name and Address Organization Details Recorded Time 04/18/20 24 Fiberoptic Laryngoscopy (Comprehensive) completed VLADIMIR SIMPSON MD [address], [address], [facility] 04/18/2024 13:19:17 Imaging Results None recorded. Procedure Notes None recorded. Medical Equipment None Reported. Allergies No known drug allergies Medications Name Sig Start Date Stop Date Status Note LastModified by Organization Details LastModified Time celecoxib 200 mg capsule active Not Available Not Available Not Available trazodone 50 mg tablet active Not Available Not Available Not Available amlodipine 10 mg tablet active Not Available Not Available Not Available gemfibrozil 600 mg tablet active Not Available Not Available Not Available clotrimazol e-betametha sone 1 %-0.05 % topical cream APPLY TO THE AFFECTED AND SURROUNDI NG AREAS OF ear twice a day once a week or as needed for scaling active Not Available Not Available No t Available omeprazole 20 mg capsule,del ayed release active Not Available Not Available Not Available escitalopra m 20 mg tablet active Not Available Not Available Not Available rosuvastati n 40 mg tablet active Not Available Not Available Not Available GaviLyte-G 236 gram-22.74 gram-6.74 gram-5.86 gram oral solution 04/18 completed Not Available Not Available Not Available Wegovy 1.7 mg/0.75 mL subcutaneou s pen injector INJECT 1.7MG INTO THE SKIN SUBCUTANE OUSLY ONCE WEEKLY FOR 4 DOSES active Not Available Not Available No t Available Wegovy 1 mg/0.5 mL subcutaneou s pen injector INJECT 1 MG INTO THE SKIN ONCE WEEKLY 04/18 completed Not Available Not Available Not Available Wegovy 0.25 mg/0.5 mL subcutaneou s pen injector 04/18 completed Not Available Not Available Not Available Wegovy 0.5 mg/0.5 mL subcutaneou s pen injector 04/18 completed Not Available Not Available Not Available Vitals Date Recorded Body height Body mass index (BMI) Body weight Provider Name and Address Organization Details Last Updated DateTime 04/18/2024 152.4 cm 35.5 kg/m2 42404.81 g Jenny Jackson [place] - [facility] 04/18/2024 13:14:38 Social History None recorded. Functional Status None recorded. Mental Status None recorded. Family History Nothing Reported. Medical History No medical history recorded. Gynecological HistoryNo gynecological history recorded. Obstetrics History GPAL:G 0 P 0 0 0 0 Past Encounters Encounter ID Performer Location Encounter Start Date Encounter Closed Date Diagnosis/Indication Diagnosis SNOMED-CT Code Diagnosis ICD10 Code Diagnosis Note VLADIMIR SIMPSON MD [facility] [address] [phone] 04/18/2024 12:37:33 04/18/2024 13:26:12 Chronic otitis externa 40064455 H60.62 Gastroesop hageal reflux disease without esophagitis 273413193 K21.9 Chronic pharyngitis 1400 04 J31.2 Health Concerns Section Related Observation LastModified by Organization Detai ls LastModified Time None Recorded Concern Status LastModified by Organization Details LastModified Time None Recorded Advance Directives Directive None Recorded Payers Encounter Date Sequence Insurance Name Policy Number Policy Chavez Covered Member ID Chavez Member ID Guarantor Name 04/18/2024 1 [facility] (MEDICARE REPLACEMENT/A DVANTAGE - HMO) [id number] Chiquita Brown [id number] Chiquita Brown Notes Date Note Type Note Provider Name and Address Organization Details Recorded Time 04/18/2024 text/html 78 yo F presents for assessment. Sore throat over the summer for 3 months over the summer. [place] in area of larynx. Worse with swallowing. Better now but not gone. Less intense.COVID test negative.Feels like it jean baptiste at times.Omeprazole twice a day. Had EGD several years ago looked normal. Had a swallow test in the past which was negative. No allergies. Fluid intake good. Some caffeine. Left ear crusty for years. No ear pain. No dysphagia. No voice changes. Was rough through the summer. Some asthma, under control. Albuterol when sick. BP under control. Wegovy 2.5 - 3 months. VLADIMIR SIMPSON MD [address] [place] [address], [phone], [place] - [facility] 04/21/2024 08:38:34 OBGyn Episode No OBEpisode recorded.
--- OUTSIDE RECORDS SUMMARY | 2024-08-28 09:36 | XMS_ITS | Encounter Summary ---
Author Organization [facility] Address [phone] [facility] [place] [address] Care Team Providers Care Shotblast Operator Name Role Phone Pcp, Unknown Primary Care Provider Unavailabl e Encounter Details Date Type Department Care Team (Late st Contact Info) Description 06/22/2023 Procedure Pass [facility], Ct Scan - [address] [address] Social History Tobacco Use Types Packs/Day Years [...] on filedocumented in this encounter Care Teams Shotblast Operator Relationship Specialty Start Date End Date Pcp, Unknown PCP - General 06/22/23 documented as of this encounter Additional Source Comments The information contained in this document represents components of the legal health record. It is not the complete legal health record.[facility]
== END 2024-08-28 09:35 | disposition home or self-care (01) ==
PROVIDERS: PCP Internal Medicine; Visit Provider Orthopaedic Surgery
DX: M25.562 Pain in left knee (principal)
CPT/HCPCS: 99024

== ENCOUNTER → 2024-08-28 09:07 | Outpatient (BNVA) | payer MEDICARE, SELFPAY | PROVIDERS: PCP Internal Medicine; Visit Provider Orthopaedic Surgery | DX: M25.562 Pain in left knee (principal) | CPT/HCPCS: 99212 ==

== ENCOUNTER 2024-10-29 09:30 | Outpatient (AMB) | payer MEDICARE, SELFPAY ==
[2024-10-29 09:32] VITALS: PULSE 68; O2SAT 98; BMI 34.6
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
--- OUTSIDE RECORDS SUMMARY | 2024-10-29 10:31 | XMS_ITS | Patient Health Record ---
Author Organization [facility] Address [address] [facility] [place] [address] Care Team Providers Care Bag Bailer Name Role Phone Bernard Uriarte Primary Care Provider Unavailabl e Surya Dasilvamie Unavailable [phone] Marika ROBERSON, Antonia Unavailable Unavailable Allergies No [...] Duration) Notes Start Date End Date Status amLODIPine Besylate 5 MG 1 tablet Orally Once a day Active Omeprazole 20 MG 2 capsules Orally On ce a day Active ProAir HFA 108 (90 Base) MCG/ACT 2 puffs as needed Inhalation every 4 hrs Active Aspir-81 81 MG 1 tablet Orally Once a day Active CeleBREX 200 MG 1 capsule Orally Onc e a day Active Escitalopram Oxalate Active Night Splint AFO - L1930 as directed 12/14/2017 Not-Taking Gemfibrozil 600 MG 1 tablet Orally Twic e a day Active Lipitor 80 MG 1 tablet Orally Once a day Active Restasis Not-Taking Ciclopirox 0.77 % 1 application to affected area Externally Twice a day to effected nails for 30 days 12/12/2022 Not-Taking Ciclopirox 0.77 % 1 application to affected area Externally Twice a day to effected nails for 30 days 08/27/2024 Active Ozempic Active Lexapro Active Immunizations Vaccine Route Administration Date Status [...] Additional Findings: Tobacco non-user Current no nsmoker AUDIT-C (Standard) Question Answer Notes Did you have a drink contain ing alcohol in the past year? Yes How often did you have a dri nk containing alcohol in the past year? 2 to 4 times a month (2 points) How many drinks did you have on a typical day when you were drinking in the past year? 1 or 2 drinks (0 point) How often did you have six o r more drinks on one occasion in the past year? 2 to 4 times a month (2 points) Points 4 Interpretation Positive Problems Problem Type SNOMED Code ICD Code Onset Dates Problem Status W/U Status Risk Notes Problem Localized, primary osteoarthritis of the ankle and/or foot (081098222) Primary osteoarthritis, right ankle and foot (M19.071) Active confirmed Problem Localized, primary osteoarthritis of the ankle and/or foot (998073818) Primary osteoarthritis, left ankle and foot (M19.072) Active confirmed Problem Acquired hallux rigidus (3104588) Hallux rigidus, right foot (M20.21) Active confirmed Problem 86995974 Acquired equinus deformity of left foot (M21.6X2) Active confirmed Problem 95841029 Acquired equinus deformity of right foot (M21.6X1) Active confirmed Problem Osteoarthritis of midtarsal joint of left foot (2476165744995115 ) Osteoarthritis of midtarsal joint of left foot (M19.072) Active confirmed Problem Osteoarthritis of midtarsal joint of right foot (6492747443435411 ) Osteoarthritis of midtarsal joint of right foot (M19.071) Active confirmed Vital Signs Blood pressure diastolic 77 mm Hg 10/03/2024 Height 5 ft in 10/03/2024 Blood pressure systolic 121 mm Hg 10/03/2024 Weight 175 lbs 10/03/2024 BMI 34.17 kg/m2 10/03/2024 Procedures Procedure Date Ordered Date Performed Result Body Sit e , A5842-HFUZO/INJECT, JOINT/BURSA 10/03/2024 N/A Encounters Encounter Location Date Provider Diagnosis [address] [address] 08/27/2024 Nubia Black Pain in left foot [...] left toe(s) M79.675 and Tinea unguium B35.[address] [address] 10/03/2024 Nubia Black Pain in left foot M79.672 ; Osteoarthritis of midtarsal joint of left foot M19.072 ; Pain in left ankle and joints of left foot M25.572 ; Bursitis of left foot M77.52 ; Pain in left toe(s) M79.675 and Tinea unguium B35.[address] [address] 03/14/[address] [address] 08/28/[address] [address] 10/03/2024 Nubia Black Assessments Encounter Date Diagnosis (ICD Code) Assessment Notes Treatment Notes Treatment Clinical Notes Section Notes 08/27/2024 Pain in left foot (ICD-10 - M79.672) 08/27/2024 Osteoarthritis of midtarsal joint of left foot (ICD-10 - M19.072) 10/03/2024 Pain in left foot (ICD-10 - M79.672) 10/03/2024 Osteoarthritis of midtarsal joint of left foot (ICD-10 - M19.072) Patient Educated with: INJECTIONWILEY CINTRON.pdf (INJECTIONTHE RAPY.pdf) 10/03/2024 Pain in left ankle and joints of left foot (ICD-10 - M25.572) 08/27/2024 Pain in left ankle and joints of left foot (ICD-10 - M25.572) 08/27/2024 Bursitis of left foot (ICD-10 - M77.52) 10/03/2024 Bursitis of left foot (ICD-10 - M77.52) 10/03/2024 Pain in left toe(s) (ICD-10 - M79.675) 08/27/2024 Pain in right foot (ICD-10 - M79.671) 08/27/2024 Pain in right ankle and joints of right foot (ICD-10 - M25.571) 10/03/2024 Tinea unguium (ICD-10 - B35.1) 08/27/2024 Bursitis of right foot (ICD-10 - M77.51) 08/27/2024 Osteoarthritis of midtarsal joint of right foot (ICD-10 - M19.071) 08/27/2024 Pain in left toe(s) (ICD-10 - M79.675) 08/27/2024 Tinea unguium (ICD-10 - B35.1) Plan Of Treatment Pending Test Test Name Order Date MRI : Foot, right 12/21/2020 X ray : Foot, right 3V 11/13/201773691, [id number]/INJECT, JOINT/BURSA 0 12/17/201999201, [id number]-HRVRB/INJECT, JOINT/BURSA 0 02/04/202057824, [id number]-CSLXB/INJECT, JOINT/BURSA 0 10/25/202183553, P2151-MLVUG/INJECT, JOINT/BURSA 0 10/03/202443791, [id number]-MXUBW/INJECT, JOINT/BURSA 0 10/22/202064975, I4858-FLXHY/INJECT, JOINT/BURSA 0 11/13/201719936,[id number]-RSR TENDON SHEATH/LIGAMENT 0 03/17/202062098,[id number]-JNJ TENDON SHEATH/LIGAMENT 0 12/14/2017 IV as clinically indicated by Radiologis dustin w,w/o contrast 12/21/2020 Insurance Providers Payer Name Payer Address Payer Phone Subscriber Number Group Number Insured Name Patient Relationship to Insured Coverage Start Date Coverage End Date [facility] are [address] [place] [address] [id number] Chiquita Brown Self - patient is the [...]
--- OUTSIDE RECORDS SUMMARY | 2024-10-29 10:31 | XMS_ITS | Clinical Summary ---
Author Organization [address] Address [address] [place] [phone] Phone Care Team Providers Care Entry Processor Name Role Phone Bernard Uriarte MD Primary Care Provider [phone] Allergies No known active allergies Medications traZODone [...] 90 each 1 4 12/09/19 25 Active Additional Information Patient not taking.Reported on 10/22/2024 alendronate (Fosamax) 70 mg tabletIndication s:Age-related osteoporosis without current pathological fracture Take 1 tablet (70 mg total) by mouth every 7 (seven) days. Take in the morning with a full glass of water, on an empty stomach, and do not take anything else by mouth or lie down for the next 30 min. 4 each 5 07/21/19 Active Additional Information Patient not taking.Reported on 10/22/2024 semaglutide (Ozempic) 2 mg/dose (8 mg/3 mL) injection pen Inject 2 mg under the skin every 7 (seven) days. 3 mL 5 11/06/19 Active capsaicin 0.033 % cream Apply 1 Application topically 3 (three) times a day. 30 g 2 5 11/28/19 Active gabapentin (NEURONTIN) 300 mg capsule Take 1 p.o. day 1, 1 p.o. twice daily on day 2, then 1 p.o. 3 times daily 90 each 5 Active Active Problems Problem Noted Date Diagnosed Date Mixed hyperlipidemia 04/29/2024 Overview (04/29/2024): Previously saw Dr. Cheng, [facility] Osteoarthritis 04/29/2024 Overview (04/29/2024): [facility], [...] joint 11/19/2023 Post-traumatic osteoarthritis of right knee 0 01/2023 Primary osteoarthritis of left knee 05/22/2023 [...] Ortega Osteopenia 03/11/2016 Overview (04/29/2024): Dexas with director client services, Dr. Tovar 05/2020 Coronary artery calcification 03/02/2016 Overview (04/29/2024): Normal stress echo 09/2016 Follows with cardiology, Dr. Rangel Cheng, [facility] Last Assessment & Plan: Patient with [...] Follows with Dr Morrison Carotid artery aneurysm ([facility] V24) 02/22/2016 Overview (04/29/2024): 2mm left ICA cavernous, [...] Encounters Date Type Department Care Team Description 10/28/2024 1:15 PM EDT Office Visit Walk-In Clinic - [address] [phone] Aj Painter MD Post herpetic neuralgia (Primary Dx) 10/28/2024 Telephone Pediatrics - [address] [phone] Bernard Uriarte MD Herpes Zoster 10/22/2024 11:00 AM EDT Office Visit Pulmon[address] [phone] Kaela Costa MD FABIAN on CPAP (Primary Dx); Moderate persistent asthma, unspecified whether complicated 10/17/[address] [phone] Kaela Costa MD dme request 10/16/2024 8:53 AM EDT - 10/16/2024 11:59 PM EDT Hospital Encounter Radiology Department - [address] [address] Encounter for screening mammogram for breast cancer Discharge Disposition: Home or Self Care 09/16/2024 9:30 AM EST Nutrition Bariatric Surgery - [address] [phone] Class 1 obesity with serious comorbidity and body mass index (BMI) of 34.0 to 34.9 in adult, unspecified obesity type (Primary Dx) 09/16/2024 8:30 AM EST Office Visit Bariatric Surgery [address] [phone] Charlie Matute MD Class 1 obesity due to excess calories with body mass index (BMI) of 34.0 to 34.9 in adult, unspecified whether serious comorbidity present (Primary Dx) from Last 3 Months Immunizations Name Administration Dates Next Due Influenza Quadravalent, MDCK , 0.5ml, with preservative (Flucelvax) 6mo and older 04/03/2017 Influenza trivalent, 0.5mL ( Fluad) 65yo and older 04/09/2024,03/29/2023,04/15/2020,05/20,04/17/2018,04/14/2016,05/11/2015 Influenza trivalent, with pr eservative (Fluzone; Afluria) 6mo and older 05/12/2015 Influenza, Unspecified 05/03/2022,05/16/2021, Pfizer SARS-CoV-2 COVID-19, mRNA, LNP-S, preservative free 05/03/2022,05/16/2021 Pneumococcal conjugate 13 va lent (Prevnar 13, PCV13) 2mo and older 01/07/2016,05/25/2015 Pneumococcal polysaccharide 23 valent (Pneumovax 23) 2yo and older 01/02/2019,03/30/2012 Tdap Tetanus diptheria acell ular pertussis (Boostrix; Adacel) 7yo and older 01/07/2016 Zoster Live 01/07/2008 Zoster recombinant (Shingrix ) 19yo and older 02/13/2021,12/14/2020,10/14/2020 Surgical History Surgery Date Site/Laterality Comments KNEE ARTHROSCOPY 05/2014 Right PROCEDURE: MS ARTHROSCOPY AID TX SPINE&/FX KNEE W/O FIXJ TONSILLECTOMY PROCEDURE: HISTORICAL TONSILLECTOMY OTHER SURGICAL HISTORY PROCEDURE: MS TOTAL ABDOMINAL HYSTERECT W/WO RMVL TUBE OVARY; COMMENT: for fibroids in her 40s SECTION PROCEDURE: MS DELIVERY ONLY; COMMENT: x3 OTHER SURGICAL HISTORY PROCEDURE: HISTORY OTHER; COMMENT: repair deviated septum CARPAL TUNNEL RELEASE Bilateral PROCEDURE: HISTORICAL CARPAL TUNNEL REL KNEE ARTHROSCOPY W/ DEBRIDEMENT 01/09/16 Right PROCEDURE: MS ARTHRS KNEE DEBRIDEMENT/SHAVING ARTCLR CRTLG; COMMENT: Dr. Conor Harris OTHER SURGICAL HISTORY PROCEDURE: MS ICAPSULAR CATARACT XTRJ INSJ IO LENS PRSTH 1 STG OTHER SURGICAL HISTORY 04/24/2013 PROCEDURE: COLONOSCOPY, REMOVE LESION; COMMENT: hyperplastic polyp COLONOSCOPY 07/30/2018 PROCEDURE: HISTORICAL COLONOSCOPY; COMMENT: Dr. Erick Turner; nl, tics, 5 year f/u UPPER GASTROINTESTINAL ENDOSCOPY 07/30/2018 PROCEDURE: UPPER GI ENDOSCOPY/EXAM; COMMENT: Dr. Suarez COLONOSCOPY 07/30/2018 PROCEDURE: HISTORICAL COLONOSCOPY; COMMENT: Dr. Suarez; tics, int hem, no polyps HYSTERECTOMY Medical History Medical History Date Comments Osteoarthritis DX:Osteoarthriti s Renal mass DX:Renal mass Asthma DX:Asthma Hypertension 02/22/2016 DX:Hypertension Carotid artery aneurysm (CMS/HCC V24) 02/22/2016 DX:Carotid artery aneurysm (HCC) Family history [...] Sexual Orientation Not on file Obstetrics History Para Term AB IAB SAB Ectopic Multiple Livin g Live Births 3 3 3 3 Date Outcome GA Total Labor Labor/2nd/3rd Weight Sex Type Anes PTL Sasha A1 A5 Name Clin Term Term Term Last Filed Vital Signs Vital Sign Reading Time Taken Comments Blood Pressure 110/62 10/28/2024 1:28 PM EDT Pulse 66 10/28/2024 1:28 PM EDT Temperature 36.6 ??C (97.8 ??F) 10/28/2024 1:28 PM ED T Respiratory Rate - - Oxygen Saturation 98% 10/28/2024 1:28 PM EDT Inhaled Oxygen Concentration - - Weight 80.1 kg (176 lb 9.6 oz) 10/22/2024 11:08 AM EDT Height 152.4 cm (5') 10/22/2024 11:08 AM EDT Body Mass Index 34.49 10/22/2024 11:08 AM EDT Plan of Treatment Upcoming Encounters Date Type Department Care Team (Late st Contact Info) Description 12/18/2024 8:45 AM EDT Office Visit Bariatric Surgery - [place] [address] [phone] Charlie Matute MD [address] [address] 12/18/2024 9:30 AM EDT Nutrition Bariatric Surgery - [place] [address] [phone] Shell Andrews, RD [address] [phone] 03/12/2025 8:45 AM EDT Office Visit Pulmonolgy - [place] [address] [phone] Kaela Costa MD [address] [address] Health Maintenance Due Date Last Done Comments Medicare Annual Wellness Visit 06/24/2022 COVID-19 Vaccine (8 - Pfizer risk 2023- season) 2025 08/15/2024, 05/19/2022, 05/03/2022, Additional history exists Social Influencers of Health [...] Additional history exists Zoster Vaccines Completed 06/29/2021, 08/0 07/2020, 12/14/2020, Additional history exists RSV Immunization Adult Patients Completed 07/19/2023 Influenza Vaccine Completed 04/09/2024, , 03/29/2023, Additional history exists Breast Cancer Screening Discontinued 10/17/19, 10/05/2023, 09/27/2022, Additional history exists HIB Vaccines Aged Out [...] age to complete this topic Meningococcal B Vaccine Aged Out No l onger eligible based on patient's age to complete this topic RSV Immunization Patients Under 20 months Aged Out No longer eligible based on patient's age to complete this topic Varicella Vaccines Aged Out No longer eligible based on patient's age to complete this topic Procedures Procedure Name Priority Date/Time Associated Diagnosis Comments MG MAMMO DIGITAL SCREENING W ARNALDO BILAT Routine 10/16/2024 9:09 AM EDT Encounter for screening mammogram for breast cancer EXTERNAL CLINICAL LAB 10/09/2024 BD BONE DENSITY DXA AXIAL SKELETON Routine 07/17/2024 11:14 AM EST Encounter for osteoporosis screening in asymptomatic postmenopausal patient LIPID PANEL WITH REFLEX TO DIRECT LDL Routine 06/11/2024 12:27 PM EST Mixed hyperlipidemia COMPREHENSIVE METABOLIC PANEL Routine 06/05/2024 10:30 AM EST Preop examination HM COLONOSCOPY Routine 12/04/2023 HEPATITIS C SCREENING Routine 03/19/2018 from Last 3 Months or Most Recently Relevant to Health Maintenance Results * MG Mammo Digital Screening w Arnaldo bilat (10/16/2024 9:09 AM EDT) Anatomical Region Laterality Modality Breast Bilateral Mammography 10/16/2024 12:0 9 PM EDT Impressions 10/16/2024 12:13 PM EDT BILATERAL BREASTS: Negative, no evidence of malignancy. Normal interval follow- up is recommended in 12 months. BREAST DENSITY: B - There are scattered areas of fibroglandular density. BI-RADS CATEGORY: 1 - NEGATIVE RECOMMENDATION: Screening bilateral mammogram is recommended in 1 year. Mammo Location: [facility], [address] [place] [address], [address], . -------- FINAL REPORT -------- Dictated By: Timbo Orona Dictated Date: 10/16/2024 12:09 ET Assigned Physician: Timbo Orona Reviewed and Electronically Signed By: Timbo Orona Signed Date: 10/16/2024 12:13 ET Workstation ID: [id number] Transcribed By: Self Edit Transcribed Date: 10/16/2024 12:09 ET Narrative 10/16/2024 12:13 PM EDT STUDY: Bilateral screening mammography with tomosynthesis and CAD TECHNIQUE: Bilateral full-field digital screening mammography is obtained and read in conjunction with computer-aided detection. ??Tomosynthesis as well as 2-D C view imaging were obtained. ?? COMPARISON: Comparison made to multiple prior, most recent October 05, 2023, and most remote January 27, 2015. BILATERAL BREASTS: No significant masses, suspicious calcifications or other abnormalities are seen in either breast. Procedure Note Timbo Orona MD - 10/16/2024 STUDY: Bilateral screening mammography with tomosynthesis and CAD TECHNIQUE: Bilateral full-field digital screening mammography is obtainedand read in conjunction with computer-aided detection. Tomosynthesis aswell as 2-D C view imaging were obtained. COMPARISON: Comparison made to multiple prior, most recent October 05, 2023,and most remote January 27, 2015. BILATERAL BREASTS: No significant masses, suspicious calcifications orother abnormalities are seen in either breast. IMPRESSION: BILATERAL BREASTS: Negative, no evidence of malignancy. Normal intervalfollow-up is recommended in 12 months. BREAST DENSITY: B - There are scattered areas of fibroglandular density. BI-RADS CATEGORY: 1 - NEGATIVE RECOMMENDATION: Screening bilateral mammogram is recommended in 1 year. Mammo Location: [facility], [address] [place] [address], [address], . -------- FINAL REPORT -------- Dictated By: Timbo Orona Dictated Date: 10/16/2024 12:09 ET Assigned Physician: Timbo Orona Reviewed and Electronically Signed By: Timbo Orona Signed Date: 10/16/2024 12:13 ET Workstation ID: [id number] Transcribed By: Self Edit Transcribed Date: 10/16/2024 12:09 ET Bernard Uriarte MD IMG BI PROCEDURES Final Result * External clinical lab (10/09/2024) us Provider [facility] LAB BLOOD ORDERABLES Fin al Result * BD Bone Density DXA Axial Skeleton (07/17/2024 11:14 AM EST) Anatomical Region Laterality Modality Wrist, Hip, L-spine Bone Densito metry 07/17/2024 11:2 6 AM EST Impressions 07/17/2024 11:27 AM EST 1. Osteoporosis. 2. FRAX analysis yields a 10-year probability of major osteoporotic fracture of 18.5% and a 10-year probability of hip fracture of 6.4%. Code 82175 -------- FINAL REPORT -------- Dictated By: Aj Mims Dictated Date: 07/17/2024 11:26 ET Assigned Physician: Aj Mims Reviewed and Electronically Signed By: Aj Mims Signed Date: 07/17/2024 11:27 ET Workstation ID: [id number] Transcribed By: Self Edit Transcribed Date: 07/17/2024 [...] is 101% of that of young normals uzb402% of that of age matched controls. This yields a T-score of 0.1 and aZ-score of 1.4 and there is therefore no evidence of osteoporosis orosteopenia here. The mean bone mineral density of the femurs bilaterally is 0.852 gm/qx0hlxwa is 85% of that of young normals [...] probability of hip fracture of 6.4%. Code 88126 -------- FINAL REPORT -------- Dictated By: Aj Mims Dictated Date: 07/17/2024 11:26 ET Assigned Physician: Aj Mims Reviewed and Electronically Signed By: Aj Mims Signed Date: 07/17/2024 11:27 ET Workstation ID: [id number] Transcribed By: Self Edit Transcribed Date: 07/17/2024 11:26 ET Bernard Uriarte MD [facility] [place]XA PROCEDURES Final Result * (ABNORMAL) Lipid panel with reflex to direct LDL (06/11/2024 12:27 PM EST) Cholesterol 232(H) 0 - 200 mg/dL LAB CHEMISTRY METHOD 06/11/2024 6:33 PM EST [facility] Triglycerides 222(H) 0 - 150 mg/dL LAB CHEMISTRY METHOD 06/11/2024 6:33 PM EST [facility] HDL 52 >=40 mg/dL LAB CHEMISTRY METHOD 06/11/2024 6:33 PM EST [facility] LDL Calculated 136(H) 0 - 100 mg/dL LAB CHEMISTRY METHOD 06/11/2024 6:33 PM EST [facility] VLDL Cholesterol Jeff 44.4 mg/dL LAB CHEMISTRY METHOD 06/11/2024 6:33 PM [facility] Non HDL Chol. (LDL+VLDL) 180(H) <145 mg/dL LAB CHEMISTRY METHOD 06/11/2024 6:33 PM [facility] Chol/HDL Ratio 4.5(H) 0.0 - 4.4 LAB CHEMISTRY METHOD 06/11/2024 6:33 PM [facility] Blood Venous blood specimen / Unknown Venipuncture / Unknown 06/11/2024 12:27 PM EST 06/11/2024 12:27 PM EST Bernard Uriarte MD LAB BLOOD ORDERABLES Final Resu lt [facility] [address] [place] [address], [place] [phone] * Comprehensive metabolic panel (06/05/2024 10:30 AM EST) Sodium 142 133 - 145 mmol/L LAB CHEMISTRY METHOD 06/05/2024 3:15 PM [facility] Potassium 4.2 3.5 - 5.5 mmol/L LAB CHEMISTRY METHOD 06/05/2024 3:15 PM [facility] Chloride 107 96 - 110 mmol/L LAB CHEMISTRY METHOD 06/05/2024 3:15 PM [facility] CO2 29 21 - 32 mmol/L LAB CHEMISTRY METHOD 06/05/2024 3:15 PM [facility] Anion Gap 6 3 - 11 LAB CHEMISTRY METHOD 06/05/2024 3:15 PM [facility] Glucose 86 70 - 100 mg/dL LAB CHEMISTRY METHOD 06/05/2024 3:15 PM [facility] BUN 13 5 - 25 mg/dL LAB CHEMISTRY METHOD 06/05/2024 3:15 PM [facility] Creatinine 0.68 0.50 - 1.10 mg/dL LAB CHEMISTRY METHOD 06/05/2024 3:15 PM [facility] eGFR 90 >=60 mL/min/1. 73m2 LAB CHEMISTRY METHOD 06/05/2024 3:15 PM [facility] Comment:Calculation based on the??Chronic Kidney Disease Epidemiology Collaboration (CKD-EPI) equation refit??without adjustment for race. BUN/Creatinine Ratio 19.1 LAB CHEMISTRY METHOD 06/05/2024 3:15 PM [facility] Calcium 10.1 8.5 - 10.5 mg/dL LAB CHEMISTRY METHOD 06/05/2024 3:15 PM [facility] AST (SGOT) 25 10 - 42 unit/L LAB CHEMISTRY METHOD 06/05/2024 3:15 PM [facility] ALT (SGPT) 30 10 - 60 unit/L LAB CHEMISTRY METHOD 06/05/2024 3:15 PM [facility] Alkaline Phosphatase 104 42 - 121 unit/L LAB CHEMISTRY METHOD 06/05/2024 3:15 PM [facility] Total Protein 6.9 6.0 - 8.0 g/dL LAB CHEMISTRY METHOD 06/05/2024 3:15 PM [facility] Albumin 4.0 3.2 - 5.0 g/dL LAB CHEMISTRY METHOD 06/05/2024 3:15 PM [facility] Total Bilirubin 0.4 0.0 - 1.4 mg/dL LAB CHEMISTRY METHOD 06/05/2024 3:15 PM [facility] Blood Venous blood specimen / Unknown Venipuncture / Unknown 06/05/2024 10:30 AM EST 06/05/2024 10:30 AM EST us Bernard Uriarte MD LAB BLOOD ORDERABLES Final Resu lt [facility] [address] [place], [place] [address] [phone] * Colonoscopy (12/04/2023) Colonoscopy no interpretation , abstracted Anatomical Region Laterality Modality Other Historical Provider HEALTH MAINTENANCE Final Result * Hepatitis C Screening (03/19/2018) Hepatitis C Screening abstracted Historical Provider HEALTH MAINTENANCE Final Result from Last 3 Months or Most Recently Relevant to Health Maintenance Insurance * Guarantor: Chiquita Brown Account Type Relation to Patient Date of Phone Billing Address Personal/Family Self 1945 [address] [place] [phone] [employer] MEDICARE Care Teams Entry Processor Relationship Specialty Start Date End Date Bernard Uriarte MD [address] [place] [address] PCP - General Internal Medicine 06/05/24
--- OUTSIDE RECORDS SUMMARY | 2024-10-29 10:31 | XMS_ITS ---
Author Organization [facility] Address [address] [facility] [place] [address] Care Team Providers Care Boiling Off Winder Name Role Phone Bernard Uriarte Primary Care Provider Unavailabl e Brown, Nubia Unavailable [phone] Marika ROBERSON, Antonia Unavailable Unavailable REASON FOR VISIT Pain Encounters Encounter Location Date Provider [facility] [place] [address] [place] [phone] 10/03/2024 Nubia Dasilva Plan Of Treatment No Information Progress Notes * Chiquita BRONW ADOB: [birth year] (79 yo F)Acc No.[id number]:10/03/2024 Patient:?Chiquita BROWN :1945???Age:79 Y???Sex:Female Address:[address] [place], [place] [address] [address] [place] [address] * true * Date:? Generated for Printi ng/Faerumg/eTransmitting on:?10/29/2024 10:31 AM EDT
--- OUTSIDE RECORDS SUMMARY | 2024-10-29 10:31 | XMS_ITS | Encounter Summary ---
Author Organization [facility] Address [address] [place] [address] Care Team Providers Care Dye Can Operator Name Role Phone Bernard Uriarte MD Primary Care Provider [phone] Reason for Visit * Reason Onset Date Comments dme request 10/17/2024 Encounter Details Date Type Department Care Team ([facility] st Contact Info) Description 10/17/2024 [facility]phone [facility] [place] 175 [facility] [address] [place] [phone] Kaela Quarles MD 175 [facility] [address] [place] [address] dme request Social History Tobacco Use Types Packs/Day Years [...] as of this encounter Progress Notes * Portia Wren MA - 10/23/2024 3:48 PM EDT Compliance given to you * Kaela Quarles MD - 10/23/2024 1:51 PM EDT Provide compliance report. I have sent off a new sleep study. * Portia Wren MA - 10/23/2024 10:10 AM EDT Patient seen please advise on orders none created * Portia Wren MA - 10/20/2024 1:17 PM EDT Scheduled 10/22/24 * Kaela Quarles MD - 10/17/2024 11:26 PM EDT DME vendor is requesting replacement CPAP, and a note within the last 6 months. Last time patient was seen was in January 2024. Patient need to come in for a follow-up visit. * Portia Wren MA - 10/17/2024 4:[address] quarles please see scanned document today for the setting being requested * Raquel Lay - 10/17/2024 10:43 AM EDT Regional fax received fro replacement of cpap. Sent to onbase folder Nov 01/26/25 documented in this encounter Plan of Treatment Upcoming Encounters Date Type Department Care Team (Late st Contact Info) Description 12/18/2024 8:45 AM EDT Office Visit Bariatric Surgery - [place] [address] [address] Charlie Matute MD 175 [facility] 120 [place] [address] 12/18/2024 9:30 AM EDT Nutrition Bariatric Surgery - [place] 175 [facility] 120 [place] [phone] Shell Andrews, ADORE 175 [facility] 120 [place] [phone] 03/12/2025 8:45 AM EDT Office Visit Pulmonolgy - [place] 175 [facility] 200 [place] [phone] Kaela Quarles MD 175 [facility] [address] [place] [address] documented as of this encounter Visit Diagnoses Not on filedocumented in this encounter Care Teams Dye Can Operator Relationship Specialty Start Date End Date Bernard Uriarte MD [address] [place] [address] PCP - General Internal Medicine 06/05/24 documented as of this encounter
--- OUTSIDE RECORDS SUMMARY | 2024-10-29 10:32 | XMS_ITS | Data Portability ---
Author Organization [place] [facility], Allergy Address [address] [place] [address] Care Team Providers Care Inspector Receiving Name Role Phone OSVALDO GARCIA Primary Care Provider [phone] Assessment Encounter Date Assessment Date Assessment LastModified [...] ole-betam ethasone 1 %-0.05 % topical cream [id number], [address] [facility], [place], [address], 13:22:56 Patient TargetsNo targets recorded. Patient InstructionsNo instructions recorded. Reason for Referral None Reported. Problems Name Problem SNOMED Code Status Onset Date Resolution Date Notes Provider Name and Address Organization Details Recorded Time Chronic otitis externa 55307089 Active 2023 VLADIMIR SIMPSON MD [address] [address], [place], [address], [facility] 4 13:21:40 Gastroesophage al reflux disease without esophagitis 080380063 Active 2023 VLADIMIR SIMPSON MD [address] [place] [address], [place], [address], [facility] - [facility] 08:36:07 Chronic pharyngitis 812681 Active 2023 VLADIMIR SIMPSON MD [address] [address], [place], [phone], [facility] 08:36:37 Problem Notes None recorded. Procedures Surgical History Date Name Laterality Status Provider Name and Address Organization Details Recorded Time 04/18/20 24 Fiberoptic Laryngoscopy (Comprehensive) completed VLADIMIR SIMPSON MD [address], [address], [facility] 04/18/2024 13:19:17 Imaging Results None recorded. [...] Updated DateTime 04/18/2024 152.4 cm 35.5 kg/m2 74576.81 g Jenny Jackson [place] - [facility] 04/18/2024 13:14:38 Social History None recorded. [...] Code Diagnosis Note VLADIMIR SIMPSON MD [facility] [address] [address] 04/18/2024 12:37:33 04/18/2024 13:26:12 Chronic otitis externa 94169105 H60.62 Gastroesop hageal reflux disease without esophagitis 851830976 K21.9 Chronic pharyngitis 1400 04 J31.2 Health Concerns Section Related Observation LastModified by Organization Detai ls LastModified Time None Recorded Concern Status LastModified by Organization Details LastModified Time None Recorded Advance Directives Directive None Recorded Payers Encounter Date Sequence Insurance Name Policy Number Policy Chavez Covered Member ID Chavez Member ID Guarantor Name 04/18/2024 1 [facility] (MEDICARE REPLACEMENT/A DVANTAGE - HMO) [id number] Chiquita Brown [id number] Chiquita Brown Notes Date Note Type Note Provider Name and Address Organization Details Recorded Time 04/18/2024 text/html 78 yo F presents for assessment. Sore throat over the summer for 3 months over the summer. [place] in area of larynx. Worse with swallowing. [...] 2.5 - 3 months. VLADIMIR SIMPSON MD [address] [place] [address], [address], [place] - [facility] 04/21/2024 08:38:34 OBGyn Episode No OBEpisode recorded.
--- OUTSIDE RECORDS SUMMARY | 2024-10-29 10:32 | XMS_ITS | Encounter Summary ---
Author Organization [facility] Address [address] [place] [address] Care Team Providers Care Manager Integrity Name Role Phone Bernard Uriarte MD Primary Care Provider [phone] Reason for Visit * Reason Comments Burn Possible related to shingles x 3 weeks Encounter Details Date Type Department Care Team (Late st Contact Info) Description 10/28/2024 1:15 PM EDT Office Visit Walk-In Clinic - [address] [phone] Aj Painter MD [address] [place] [phone] Post herpetic neuralgia (Primary Dx) Social History Tobacco Use Types Packs/Day Years [...] on file documented as of this encounter Last Filed Vital Signs Vital Sign Reading Time Taken Comments Blood Pressure 110/62 10/28/2024 1:28 PM EDT Pulse 66 10/28/2024 1:28 PM EDT Temperature 36.6 ??C (97.8 ??F) 10/28/2024 1:28 PM ED T Respiratory Rate - - Oxygen Saturation 98% 10/28/2024 1:28 PM EDT Inhaled Oxygen Concentration - - Weight - - Height - - Body Mass Index - - documented in this encounter Ordered Prescriptions Prescription Sig Dispense Quantity Refills Last Filled Start Date End Date gabapentin (NEURONTIN) 300 mg capsule Take 1 p.o. day 1, 1 p.o. twice daily on day 2, then 1 p.o. 3 times daily 90 each 10/28/2024 capsaicin 0.033 % cream Apply 1 Application topically 3 (three) times a day. 30 g 2 10/28/2024 documented in this encounter Progress Notes * Aj Painter MD - 10/28/2024 1:15 PM EDT CHIEF COMPLAINT: Burn (Possible related to shingles x 3 weeks ) HPI: Chiquita Brown is a 79 y.o. old female who complains of a burning sensation left axilla and left upper arm since September 07. Patient has not noted any rash. Patient feels that she may have shingles. ROS: Review of Systems Constitutional: Negative for chills and fever. Respiratory: Negative for cough. Skin: Negative for rash. Neurological: Negative for headaches. PAST MEDICAL HISTORY: Patient Active Problem List Diagnosis Date Noted Mixed hyperlipidemia 04/29/2024 Osteoarthritis 04/29/2024 Renal mass 04/29/2024 Class 1 obesity with serious comorbidity and body mass index (BMI) of 34.0 to 34.9 in adult 04/29/2024 Mucoid cyst of joint 11/19/2023 Post-traumatic osteoarthritis of right knee 05/22/2023 Primary osteoarthritis of left knee 05/22/2023 Postnasal drip 12/26/2022 TIA (transient ischemic attack) 10/11/2022 Abnormal stress test 08/31/2022 Gastroesophageal reflux disease 06/25/2018 Obstructive sleep apnea syndrome 05/08/2018 Thyroid nodule 04/03/2018 Spinal stenosis of lumbar region with radiculopathy 06/18/2017 Avulsion fracture of left ankle 01/09/2017 Chronic pain of right knee 01/02/2017 Insomnia 01/02/2017 Edema of both legs 04/13/2016 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 Erick Turner; nl, tics, 5 year f/u COLONOSCOPY 07/30/2018 PROCEDURE: HISTORICAL COLONOSCOPY; COMMENT: Dr. Suarez; tics, int hem, no polyps HYSTERECTOMY KNEE ARTHROSCOPY Right 05/2014 PROCEDURE: AK ARTHROSCOPY AID TX SPINE&/FX KNEE W/O FIXJ KNEE ARTHROSCOPY W/ DEBRIDEMENT Right 01/09/16 PROCEDURE: AK ARTHRS KNEE DEBRIDEMENT/SHAVING ARTCLR CRTLG; COMMENT: Dr. Conor Harris OTHER SURGICAL HISTORY PROCEDURE: AK TOTAL ABDOMINAL HYSTERECT W/WO RMVL TUBE OVARY; COMMENT: for fibroids in her 40s OTHER SURGICAL HISTORY PROCEDURE: HISTORY OTHER; COMMENT: repair deviated septum OTHER SURGICAL HISTORY PROCEDURE: AK ICAPSULAR CATARACT XTRJ INSJ IO LENS PRSTH 1 STG OTHER SURGICAL HISTORY 04/24/2013 PROCEDURE: COLONOSCOPY, REMOVE LESION; COMMENT: hyperplastic polyp TONSILLECTOMY PROCEDURE: HISTORICAL TONSILLECTOMY UPPER GASTROINTESTINAL ENDOSCOPY 07/30/2018 PROCEDURE: UPPER GI ENDOSCOPY/EXAM; COMMENT: Dr. Suarez SOCIAL HISTORY: Social History Tobacco Use Smoking status: Former Current packs/day: 0.00 Types: Cigarettes Quit date: 07/16/1969 Years since quittin.3 Smokeless tobacco: Never Substance Use Topics Alcohol use: Yes FAMILY HISTORY: Family History Problem Relation Name Age of Onset Other (Other: pancreatic cancer) Father 39.00 Diabetes Mother CVA, Lipid disorder Breast cancer Paternal Grandmother Age 40-49 Coronary artery disease Sister Macular degeneration Father's side Hyperlipidemia Mother's side Family Status Relation Name Status Father Mother (Not Specified) PGM Sister (Not Specified) Father's adrianne (Not Specified) Mother's adrianne (Not Specified) No partnership data on file MEDICATIONS DISCONTINUED/REORDERED: There are no discontinued medications. ACTIVE MEDICATIONS: No outpatient medications have been marked as taking for the 10/28/24 encounter (Office Visit) with Aj Painter MD. ALLERGIES: No Known Allergies PHYSICAL EXAM: Vitals: 10/28/24 1328 BP: 110/62 Pulse: 66 Temp: 36.6 ??C (97.8 ??F) SpO2: 98% Physical Exam Vitals reviewed. Constitutional: General: She is not in acute distress. Appearance: She is not ill-appearing. Cardiovascular: Rate and Rhythm: Normal rate. Pulmonary: Effort: Pulmonary effort is normal. No respiratory distress. Skin: Findings: No rash. LABS/IMAGING: IMPRESSION: 1. Post herpetic neuralgia PLAN: 1. Patient has neuropathic pain in the distribution of T1. Will prescribe gabapentin. Patient was advised not to consume alcohol while on gabapentin. Capsacin was prescribed. Patient was advised to follow-up with PCP. Advised the patient to call pcp if any problems. Patient understands the plan. Patient is in agreement with the plan. Aj Painter MD on 10/28/2024 at 1:51 PM EDT Today's documentation was made using voice recognition software. This note may contain grammatical errors secondary to this software. documented in this encounter Plan of Treatment Upcoming Encounters Date Type Department Care Team (Late st Contact Info) Description 12/18/2024 8:45 AM EDT Office Visit Bariatric Surgery - [place] [address] [address] Charlie Matute MD [address] [address] 12/18/2024 9:30 AM EDT Nutrition Bariatric Surgery - [place] [address] [phone] Shell Andrews, [place] [address] [address] 03/12/2025 8:45 AM EDT Office Visit Pulmonolgy - [place] 175 [facility] 200 [place] [phone] Kaela Costa MD [address] [place] [address] [address] [place] [address] documented as of this encounter Visit Diagnoses Diagnosis Post herpetic neuralgia- Primary Herpes zoster with other nervous system complications documented in this encounter Care Teams Manager Integrity Relationship Specialty Start Date End Date Bernard Uriarte MD [address] [place] [address] PCP - General Internal Medicine 06/05/24 documented as of this encounter
--- OUTSIDE RECORDS SUMMARY | 2024-10-29 10:32 | XMS_ITS ---
Author Organization [facility] Address [address] [place] [address] Care Team Providers Care Fibre Composite Technician Name Role Phone Bernard Uriarte Primary Care Provider Unavailabl e Brown, Nubia Unavailable [phone] Marika ROBERSON, Antonia Unavailable Unavailable REASON FOR VISIT Med question Encounters Encounter Location Date Provider Diagnosis [address] [place] [address] 08/28/2024 Nubiadanielle Dasilva Plan Of Treatment No Information Progress Notes * Chiquita BROWN ADOB: 8 (79 yo F)Acc No.[id number]:08/28/2024 Patient:?Chiquita BROWN :1945???Age:79 Y???Sex:Female Address:[address] [place], [place] [address] [address] [address] * true * Date:? Generated for Printi ng/Faerumg/eTransmitting on:?10/29/2024 10:31 AM EDT
--- OUTSIDE RECORDS SUMMARY | 2024-10-29 10:32 | XMS_ITS | Encounter Summary ---
Author Organization [facility] Address [address] [place] [address] Care Team Providers Care Managed Security Sales Consultant Name Role Phone Bernard Uriarte MD Primary Care Provider [phone] Reason for Visit * Reason Onset Date Comments Herpes Zoster 10/28/2024 Encounter Details Date Type Department Care Team (Late st Contact Info) Description 10/28/2024 Telephone Pediatrics - [place] [address] [facility] [place] [address] Bernard Uriarte MD [address] [place] [address] Herpes Zoster Social History Tobacco Use Types Packs/Day Years [...] as of this encounter Progress Notes * Arianne Quintana MA - 10/28/2024 11:46 AM EDT Spoke with pt, she is having pain/more burning sensation, left lateral under the arm area since theend august. This is constant, never developed a rash that she was aware of but states the burning sensation is increasing. She believes it is shingles. Offered appt tomorrow in , pt declined due to another appt tomorrow she cannot cancel and copay would be $35 as opposed to medicine appt is free. She is travelling on 11/01 and was hoping to see someone prior to. Advised nothing open in medicine, she can seek outside or send us a message first thing tomorrow am and we can check for cancellations * Evelina Lan - 10/28/2024 11:09 AM EDT Patient call requires triage: Symptoms patient is presenting: Shingles How long has patient had these symptoms?: sep 07, 2024 For ALL patients calling to schedule any appointment (routine, sick visit, follow up, consult, etc.) in the outpatient setting please ask the following questions: Do you have fever of higher than 101, sore throat with difficulty swallowing or severe shortness ofbreath? no If YES to any of these above symptoms, send a message to triage and do not book. Red dot. If no, an audio or video visit should be booked. Have you had close contact with someone with Coronavirus in the last 14 days? no Have you traveled abroad? no Have you traveled recently to another state outside of [place], [place], [place], [place], [place], [place], [place]? no o If yes, did you quarantine for 14 days or have a negative covid test? no If yes to any of the above, patient is not to be scheduled in office until after 14 day quarantine or negative covid test. If pain or injury related was it due to an accident at work or from a motor vehicle accident? If yes, date of accident/Injury: No If yes, gather 3rd green party insurance information Third Green Party Information: not applicable PCP: Bernard Uriarte MD Payor: [facility] MED[facility] / Plan: [facility] MEDIC[facility] COMPLETE / Product Type: *No Product type* / documented in this encounter Plan of Treatment Upcoming Encounters Date Type Department Care Team (Late st Contact Info) Description 12/18/2024 8:45 AM EDT Office Visit Bariatric Surgery - [place] 175 [facility] 120 [place] [phone] Charlie Matute MD [address] [phone] 12/18/2024 9:30 AM EDT Nutrition Bariatric Surgery - [place] 175 [facility] 120 [place] [phone] Shell Andrews, [place] [address] [phone] 03/12/2025 8:45 AM EDT Office Visit Pulmonolgy - [place] 175 [facility] 200 [place] [phone] Kaela Costa MD [address] [address] documented as of this encounter Visit Diagnoses Not on filedocumented in this encounter Care Teams Managed Security Sales Consultant Relationship Specialty Start Date End Date Bernard Uriarte MD [address] [place] [address] PCP - General Internal Medicine 06/05/24 documented as of this encounter
--- OUTSIDE RECORDS SUMMARY | 2024-10-29 10:32 | XMS_ITS | Encounter Summary ---
Author Organization [facility] Address [address] [place] [address] Care Team Providers Care Bag Worker Name Role Phone Bernard Uriarte MD Primary Care Provider [phone] Encounter Details Date Type Department Care Team (Late st Contact Info) Description 06/22/2024 Nurse Triage Winding Inspector And Tester - [place] [address] [place] [address] Bernard Uriarte MD [address] [place] [address] Social History Tobacco Use Types Packs/Day Years [...] said about making another appt here or [facility] but pt states she has appt with PCP on 07/04 so she will wait until then. * Haily Kaur MA - 06/23/2024 4:57 PM EST left message to call back, please put call through to [phone] or resend to med/ped if no answer [...] AM EDT Office Visit Bariatric Surgery - [place] [address] [phone] Charlie Matute MD [address] [address] 12/18/2024 9:30 AM EDT Nutrition Bariatric Surgery - [address] [phone] Shell Andrews, RD [address] [phone] 03/12/2025 8:45 AM EDT Office Visit Pulmonolgy - [place] [address] [phone] Kaela Costa MD [address] [address] documented as of this encounter Visit Diagnoses Not on filedocumented in this encounter Care Teams Bag Worker Relationship Specialty Start Date End Date Bernard Uriarte MD [address] [place] [address] PCP - General Internal Medicine 06/05/24 documented as of this encounter
--- OUTSIDE RECORDS SUMMARY | 2024-10-29 10:32 | XMS_ITS ---
Author Organization [facility] [place] Address [address] [facility] [place] [address] Care Team Providers Care Dowel Sander Operator Name Role Phone Bernard Uriarte Primary Care Provider Unavailabl e Nubia Dasilva Unavailable [phone] Marika ROBERSON, Antonia Unavailable Unavailable Allergies No Known Allergies REASON FOR VISIT Foot pain, Painful Nail(s) aggrevated by shoes and causing difficulty standing/walking. Medications Medication SIG (Take, Route, Frequency, Duration) Notes Start Date End Date Status ProAir HFA 108 (90 Base) MCG/ACT 2 puffs as needed Inhalation every 4 hrs Active Night Splint AFO - L1930 as directed 12/14/2017 Not-Taking Ciclopirox 0.77 % 1 application to affected area Externally Twice a day to effected nails for 30 days 12/12/2022 Not-Taking Ciclopirox 0.77 % 1 application to affected area Externally Twice a day to effected nails for 30 days 08/27/2024 Active Lexapro Active amLODIPine Besylate 5 MG 1 tablet Orally Once a day Active Omeprazole 20 MG 2 capsules Orally On ce a day Active Aspir-81 81 MG 1 tablet Orally Once a day Active Gemfibrozil 600 MG 1 tablet Orally Twic e a day Active Lipitor 80 MG 1 tablet Orally Once a day Active CeleBREX 200 MG 1 capsule Orally Onc e a day Active Escitalopram Oxalate Active Restasis Not-Taking Ozempic Active Social History Tobacco Use: Social History [...] month (2 points) Points 4 Interpretation Positive Vital Signs Height 5 ft in 10/03/2024 Weight 175 lbs 10/03/2024 BMI 34.17 kg/m2 10/03/2024 Blood pressure systolic 121 mm Hg 10/04/19 25 Blood pressure diastolic 77 mm Hg 025 Procedures Procedure Date Ordered Date Performed Result Body Sit e , F0491-ISNKK/INJECT, JOINT/BURSA 10/03/2024 N/A Encounters Encounter Location Date Provider Diagnosis [facility] [address] 10/03/2024 Nubia Black Pain in left foot M79.672 ; Osteoarthritis of midtarsal joint of left foot M19.072 ; Pain in left ankle and joints of left foot M25.572 ; Bursitis of left foot M77.52 ; Pain in left toe(s) M79.675 and Tinea unguium B35.1 Assessments Encounter Date Diagnosis (ICD Code) Assessment Notes Treatment Notes Treatment Clinical Notes Section Notes 10/03/2024 Pain in left foot (ICD-10 - M79.672) 10/03/2024 Osteoarthritis of midtarsal joint of left foot (ICD-10 - M19.072) Patient Educated with: INJECTIONTHER ABDULAZIZ.pdf (INJECTIONTHE TORREY.pdf) 10/03/2024 Pain in left ankle and joints of left foot (ICD-10 - M25.572) 10/03/2024 Bursitis of left foot (ICD-10 - M77.52) 10/03/2024 Pain in left toe(s) (ICD-10 - M79.675) 10/03/2024 Tinea unguium (ICD-10 - B35.1) Plan Of Treatment Treatment Notes Assessment Notes Osteoarthritis of midtarsal joint of lef t foot Patient Educated with: INJECTIONTHERAPY.pdf (INJECTIONTHERAPY.pdf) Pending Test Test Name Order Date , X4545-PBCSD/INJECT, JOINT/BURSA 0 10/03/2024 Next Appt Details Follow Up: 6 Weeks, Reason: Procedure Notes * Category Sub-Category Detail Notes Injection Sm. Joint, Bursa , J07 In jection - sm/med joint bursa/capsule with 1cc of 1 percent Xylo.pl with 3mg Celestone Soluspan utilizing aseptic technique. The patient tolerated the procedure well. A dry sterile dressing was applied. Post injection instructions were dispensed, verbally discussed, and confirmed understood by the patient. I explained that a steroid and local anesthetic injection usually decreases pain and inflammation. I explained the possible complications including but not limited to signs/symptoms of steroid flare, change/deviation in toe position, infection, bruising, atrophy, discoloration of skin, and that additional injections may be necessary. Patient relates post-procedural pain assessment improved at ( 0-1) out of 10, LEFT, Patient relates post-procedural pain assessment improved at ( 0-1) out of 10 Progress Notes * Dave BROWNa ADOB: 8 (79 yo F)Acc No.[id number]:10/03/2024 Progress Note Patient:?Chiquita BROWN Provider:?Nubia Dasilva DPM :1945???Age:79 Y???Sex:Female D ate:10/03/2024 Address:[address] [place] [phone] Pcp:Bernard Uriarte Subjective: * Chief Complaints: * ???Foot painPainful Nail(s) aggrevated by shoes and causing difficulty standing/walking. * HPI: ???Foot Pain:?Nature:?aching , stiffness , swelling , throbbing.?Location:?Top , Midfoot, , LEFT.?Duration:?, several months.?Onset:?unknown, denies trauma.?Course:?worse.?Treatments:?rest/alter normal daily activity, topical pain medication helps somewhat, patient states previous conservative therapy has not provided acceptable relief.?Painful Nails:?Pt States Last PCP Visit:?Date:?07/03/2024 ?Treatments:?Ciclopirox topical gel, relates adherence to recom tx.? * ROS:?General/Constitutional:?Nausea?denies.?Vomiting?denies.?Hunger Thirst?denies.?Loss appetite?denies.?Chills?denies.?Fatigue?denies.?Fever?denies.?Night Sweats?denies.?Unexplained weight loss?denies.?Ophthalmologic:?Blurred [...] Diagno stic Procedure:?Urgent care [place] foot [place] [place]/02/2022 * Family History:?Mother: dece [...] medical reasons in the past 12 months??No ???Miscellaneous:?Caffeine: yes, frequency:, 2-cups per day. ?Children: yes, 3. ?Exercise: yes, golf. ?Marital status: . ?Occupation: retired [employer] service. ???Drug/Alcohol:?AUDIT-C (Standard)?Did you have a drink containing alcohol in the past year??Yes ?How often did you have a drink containing alcohol in the past year??2 to 4 times a month (2 points) ?How many drinks did you have on a typical day when you were drinking in the past year??1 or 2 drinks (0 point) ?How often did you have six or more drinks on one occasion in the past year??2 to 4 times a month (2 points) ?Points?4 ?Interpretation?Positive * Medications:?TakingOzempic E scitalopram Oxalate CeleBREX 200 MG Capsule 1 capsule [...] as needed Inhalation every 4 hrs Lexapro Ciclopirox 0.77 % Gel 1 application to affected area Externally Twice a day to effected nails Taking Ozempic Taking Escitalopram Oxalate Taking CeleBREX 200 MG [...] needed Inhalation every 4 hrs Taking Lexapro Taking Ciclopirox 0.77 % Gel 1 application to affected area Externally Twice a day to effected nails Not-Taking/PRNRestasis Ciclopirox 0.77 % Gel 1 application to affected area Externally Twice a day to effected nails Night Splint AFO - L1930 as directed Medication List reviewed and reconciled with the patientNot-Taking/PRN Restasis Not-Taking/PRN Ciclopirox 0.77 % Gel 1 application to affected area Externally Twice a day to effected nails Not-Taking/PRN Night Splint AFO - L1930 as directed Medication List reviewed and reconciled with the patient * Allergies:?N.K.D.A.yes[Aller gies Verified] Objective: * Vitals:?Ht: 5 ft, Wt: 175, B CA: 34.17, Shoe size: 6, BP: 121/77 mm Hg, Wt-k.38 kg. * Examination: ???General Examination: ?GENERAL APPEARANCE:?good attention to hygiene, no acute distress, well developed, well nourished.?Orthopedic: ?GAIT ABNORMALITY:?Supinated, adducted angle and base of gate, B/L.?FOOT MORPHOLOGY:? Prominent, painful 1st Met-Cuneiform joint with inflammation,, LEFT.?DIGITAL DEFORMITIES:?Digital contracture, PIPJ, 2-5 B/L, incompl-reducible with [...] malodorous subungual debris, with pain on palpation, TA, proximal clearing of nail approximately 10 percent.? Assessment: * Assessment: 1.?Pain in left foot - M79.6 72???2.?Osteoarthritis of midtarsal joint of left foot - M19.072 (Primary)???Specify :Resistant to previous conservative treatment???3.?Pain in left ankle and joints of left foot - M25.572???4. Bursitis of left foot - M77.52???5.?Pain in left toe(s) - M79.675???6.?Tinea unguium - B35.1???Specify :Response to treatment - Improvement??? Plan: * Treatment: * Procedures:?Injection:?Sm. Joint, Bursa?34766, J0702 Injection - sm/med joint bursa/capsule with 1cc of 1 percent Xylo.pl with 3mg Celestone Soluspan utilizing aseptic technique. The patient tolerated the procedure well. A dry sterile dressing was applied. Post injection instructions were dispensed, verbally discussed, and confirmed understood by the patient. I explained that a steroid and local anesthetic injection usually decreases pain and inflammation. I explained the possible complications including but not limited to signs/symptoms of steroid flare, change/deviation in toe position, infection, bruising, atrophy, discoloration of skin, and that additional injections may be necessary. Patient relates post-procedural pain assessment improved at ( 0-1) out of 10, LEFT, Patient relates post-procedural pain assessment improved at ( 0-1) out of 10.? * Procedure Codes:?J0702 INJ B ETAMETHSN ACTAT&SOD PHOSPH-[id number] DRAIN/INJECT, JOINT/BURSA, Modifiers: XS * Preventive Medicine:? ??Counseling:?Discussion:?-12: Office or other outpatient visit for the evaluation and management of an established patient, which required a medically appropriate history and/or examination and STRAIGHTFORWARD level of MEDICAL DECISION MAKING, 1 SELF-LIMITED OR MINOR PROBLEM, MINIMAL- NO AMOUNT/COMPLEXITY OF DATA TO BE REVIEWED/ANALYZED, AND MINIMAL RISK OF COMPLICATION/MORBIDITY. The visit on the day of the [...] have encouraged the patient to call the office.?F/U Fungal nails:?Reviewed with the patient the time needed before we start seeing results with the topical medication. Discussed the results that we hope to see . We discussed the duration of time needed to see results., Nail debridement performed extensively to reduce/remove overall nail length and girth, subungual debris, and necrotic tissue, by manual and electrical means with use of a nail nipper and/or dremel, to more viable healthy nail plate or bed tissue. Silver nitrate used for any petechial bleeding as necessary.? ??Screening/Special Tests:?Fall Risk?Screening:?No falls in the past year ?FALLS: Screening for Future Fall Risk?Have you had any falls with injury in the past year??No * Follow Up:?6 Weeks * Images: * Sign off status: Completed true * Provider:?Nubia Dasilva DPM Date:?2024 Generated for Jenna little/Anthony/Debraitting on:?10/29/2024 10:31 AM EDT History and Physical Notes * HPI (History of Present Illness) Category Sub-Category Detail Notes Category Not es Painful Nails Treatments: Ciclopirox topic al gel, relates adherence to recom tx Pt States Last PCP Visit: Date:: 07/03/2024 Foot Pain Nature: aching , stiffness , swellin g , throbbing Location: Top , Midfoot, , LEF T Duration: , several months Onset: unknown, denies sarah farmer Course: worse Treatments: rest/alter normal da aly activity, topical pain medication helps somewhat, patient states previous conservative therapy has not provided acceptable relief Examination Category Sub-Category Detail Notes Category Not [...] Prominent, painful 1 st Met-Cuneiform joint with inflammation,, LEFT FOOTWEAR EVALUATION: shoe gear propertie s exacerbate patients foot/toe deformity DIGITAL DEFORMITIES: Digital [...] malodorous subungual debris, with pain on palpation, TA, proximal clearing of nail approximately 10 percent
== END 2024-10-29 10:50 | disposition home or self-care (01) ==
LOC: HO.HSMS 09:31
PROVIDERS: PCP Internal Medicine; Visit Provider Psychiatry & Neurology Neurology
DX: G97.81 Other intraoperative complications of nervous system (principal); G45.9 Transient cerebral ischemic attack, unspecified; H53.9 Unspecified visual disturbance; R20.2 Paresthesia of skin
CPT/HCPCS: 99214

== ENCOUNTER → 2024-10-29 09:30 | Outpatient (BNVA) | payer MEDICARE, SELFPAY | PROVIDERS: PCP Internal Medicine; Visit Provider Psychiatry & Neurology Neurology | DX: G97.81 Other intraoperative complications of nervous system (principal); G45.9 Transient cerebral ischemic attack, unspecified; H53.9 Unspecified visual disturbance; R20.2 Paresthesia of skin | CPT/HCPCS: 99212 ==

== ENCOUNTER 2024-11-25 11:36 | Outpatient (AMB) | payer MEDICARE, SELFPAY ==
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
--- OUTSIDE RECORDS SUMMARY | 2024-11-25 13:08 | XMS_ITS | Encounter Summary ---
Author Organization [facility] Address [address] [place] [phone] Phone Care Team Providers Care Fast Foods Worker Name Role Phone Pcp, Unknown Primary Care Provider Unavailabl e Encounter Details Date Type Department Care Team (Late st Contact Info) Description 06/22/2023 Procedure Pass [facility], Ct Scan - [address] [address] Social History Tobacco Use Types Packs/Day Years [...] or tries to control you? No 06/22/2023 Comments Unknown Sex and Gender Information Value Date Recorded Sex Assigned at Not on file Legal Sex Female 7:18 PM EST Gender Identity Not on file Sexual Orientation Not on file documented as of this encounter Functional Status * Calculated C-SSRS Risk Score (Lifetime/Recent) Answer Date of Assessment Author No Risk Indicated 06/22/2023 7:35 PM Joy Pena RN * [place] Suicide Severity Rating Scale (Screener/Recent Self-Report) Question Answer Date of Assessment Author 1. Wish to be (Past 1 Month) No 023 7:35 PM Joy Pena RN 2. Non-Specific Active Suici zak Thoughts (Past 1 Month) No 06/22/2023 7:35 PM Cathie Pena RN 6. Suicidal Behavior (Lifetime) No 3 7:35 PM Joy Pena RN documented as of this encounter Plan of Treatment Not on file documented as of this encounter Visit Diagnoses Not on filedocumented in this encounter Care Teams Fast Foods Worker Relationship Specialty Start Date End Date Pcp, Unknown PCP - General 06/22/23 documented as of this encounter Additional Source Comments The information contained in this document represents components of the legal health record. It is not the complete legal health record.[facility]
--- OUTSIDE RECORDS SUMMARY | 2024-11-25 13:08 | XMS_ITS ---
Author Organization [facility] Address [address] [facility] [place] [address] Care Team Providers Care Participant Administrator Name Role Phone Bernard Uriarte Primary Care Provider Unavailabl e Brown, Nubia Unavailable [phone] Marika ROBERSON, Antonia Unavailable Unavailable REASON FOR VISIT Pain Encounters Encounter Location Date Provider [facility] [place] [address] [place] [phone] 10/03/2024 Nubia Dasilva Plan Of Treatment No Information Progress Notes * Chiquita BROWN ADOB: 8 (79 yo F)Acc No.[id number]:10/03/2024 Patient:?Chiquita BROWN :1945???Age:79 Y???Sex:Female Address:[address] [place], [place] [address] [address] [place] [address] * true * Date:? Generated for Printi anabel/Faerumg/eTransmitting on:?11/25/2024 01:08 PM EDT
--- OUTSIDE RECORDS SUMMARY | 2024-11-25 13:08 | XMS_ITS | Encounter Summary ---
Author Organization [facility] Address [address] [place] [address] Care Team Providers Care Ultimate Hoops Scoreboard Operator Name Role Phone Bernard Uriarte MD Primary Care Provider [phone] Encounter Details Date Type Department Care Team (Late st Contact Info) Description 06/22/2024 Nurse Triage Laminating Press Operator - [address] [place] [address] Bernard Uriarte MD [address] [place] [address] Social History Tobacco Use Types Packs/Day Years [...] call back, please put call through to [phone] or resend to med/ped if no answer [...] AM EDT Office Visit Bariatric Surgery - [place] [address] [phone] Charlie Matute MD [address] [address] 12/18/2024 9:30 AM EDT Nutrition Bariatric Surgery - [address] [phone] Shell Andrews, RD [address] [phone] 03/12/2025 8:45 AM EDT Office Visit Pulmonolgy - [place] [address] [phone] Kaela Costa MD [address] [address] documented as of this encounter Visit Diagnoses Not on filedocumented in this encounter Care Teams Ultimate Hoops Scoreboard Operator Relationship Specialty Start Date End Date Bernard Uriarte MD [address] [place] [address] PCP - General Internal Medicine 06/05/24 documented as of this encounter
--- OUTSIDE RECORDS SUMMARY | 2024-11-25 13:08 | XMS_ITS | Clinical Summary ---
Author Organization [address] Address [address] [place] [address] Phone Care Team Providers Care Shift Nurse Manager Name Role Phone Bernard Uriarte MD Primary Care Provider [phone] Allergies No known active allergies Medications traZODone (DESYREL) 50 mg tablet TAKE 1 TABLET BY MOUTH AT BEDTIME 04/02/20 24 Active rosuvastatin (CRESTOR) 40 mg tablet Take 1 tablet (40 mg total) by mouth 1 (one) time each day. 04/02/20 24 Active amLODIPine (NORVASC) 10 mg tablet Take 1 tablet (10 mg total) by mouth 1 (one) time each day. 04/02/20 24 Active escitalopram (LEXAPRO) 20 mg tablet Take 1 tablet (20 mg total) by mouth 1 (one) time each day. 04/02/20 24 Active gemfibroziL (LOPID) 600 mg tablet Take 1 tablet (600 mg total) by mouth 2 (two) times a day. 09/26/19 24 Active omeprazole (PriLOSEC) [address] capsule Take 1 capsule (20 mg total) by mouth 2 (two) times a day. 09/26/19 24 Active aspirin 81 mg EC tablet Take 1 tablet (81 mg total) by mouth 1 (one) time each day. Active celecoxib (CeleBREX) 200 mg capsule daily. 06/15/20 22 Active tacrolimus (PROTOPIC) 0.03 % ointment Apply topically as needed. Active escitalopram (Lexapro) 10 mg tablet Take 1 tablet (10 mg total) by mouth 1 (one) time each day. Take with 20mg tablet for a total of 30mg once a day. 90 each 1 06/11/20 24 025 Active Additional Information Patient not taking.Reported on 10/22/2024 alendronate (Fosamax) 70 mg tabletIndicatio ns:Age-related osteoporosis without current pathological fracture Take 1 tablet (70 mg total) by mouth every 7 (seven) days. Take in the morning with a full glass of water, on an empty stomach, and do not take anything else by mouth or lie down for the next 30 min. 4 each 07/21/19 25 026 Active Additional Information Patient not taking.Reported on 10/22/2024 capsaicin 0.033 % cream Apply 1 Application topically 3 (three) times a day. 30 g 2 10/29/19 25 025 Active gabapentin (NEURONTIN) 300 mg capsule Take 1 p.o. day 1, 1 p.o. twice daily on day 2, then 1 p.o. 3 times daily 90 each 10/29/19 25 Active Ozempic 2 mg/dose (8 mg/3 mL) injection pen INJECT 2 MG UNDER THE SKIN EVERY 7 DAYS 3 mL 11/13/19 25 Active semaglutide (Ozempic) 2 mg/dose (8 mg/3 mL) injection pen Inject 2 mg under the skin every 7 (seven) days. 3 mL 10/07/19 25 025 Discontinued Active Problems Problem Noted Date Diagnosed Date Mixed hyperlipidemia 04/29/2024 Overview (04/29/2024): Previously saw Dr. Cheng, [facility] Osteoarthritis 04/29/2024 Overview (04/29/2024): Arthritis treatment [...] Ortega Osteopenia 03/11/2016 Overview (04/29/2024): Dexas with field crops harvest machine operator, Dr. Tovar 05/2020 Coronary artery calcification 03/02/2016 Overview (04/29/2024): Normal stress echo 09/2016 Follows with cardiology, Dr. Rangel Cheng, [facility] Last Assessment & Plan: Patient with atypical [...] Follows with Dr Morrison Carotid artery aneurysm ([facility] V24) 02/22/2016 Overview (04/29/2024): 2mm [...] Encounters Date Type Department Care Team Description 11/11/2024 Telephone Pulmonolgy - [address] [phone] Portia Wren MA 11/09/2024 Telephone Bariatric Surgery - [address] [address] Charlie Matute MD Med Refill 10/28/2024 1:15 PM EDT Office Visit Walk-In Clinic - [address] [address] Aj Painter MD Post herpetic neuralgia (Primary Dx) 10/28/2024 Telephone Pediatrics - [facility] [address] [place] [address] Bernard Uriarte MD Herpes Zoster 10/22/2024 11:00 AM EDT Office Visit [address] [address] Kaela Costa MD FABIAN on CPAP (Primary Dx); Moderate persistent asthma, unspecified whether complicated 10/17/[address] [phone] Kaela Costa MD dme request 10/16/2024 8:53 AM EDT - 10/16/2024 11:59 PM EDT Hospital Encounter Radiology Department - [address] [address] Encounter for screening mammogram for breast cancer Discharge Disposition: Home or Self Care 09/16/2024 9:30 AM EST Nutrition Bariatric Surgery - [address] [phone] Class 1 obesity with serious comorbidity and body mass index (BMI) of 34.0 to 34.9 in adult, unspecified obesity type (Primary Dx) 09/16/2024 8:30 AM EST Office Visit Bariatric Surgery - [address] [place] [address] Charlie Matute MD Class 1 obesity [...] 6mo and older 05/12/2015 Influenza, Unspecified 05/03/2022,05/16/2021, [facility] SARS-CoV-2 COVID-19, mRNA, LNP-S, preservative free 05/03/2022,05/16/2021 Pneumococcal conjugate 13 va lent (Prevnar 13, PCV13) 2mo and older 01/07/2016,05/25/2015 Pneumococcal polysaccharide 23 valent (Pneumovax 23) 2yo and older 01/02/2019,03/30/2012 Tdap Tetanus diptheria acell ular pertussis (Boostrix; Adacel) 7yo and older 01/07/2016 Zoster Live 01/07/2008 Zoster recombinant (Shingrix ) 19yo and older 02/13/2021,12/14/2020,10/14/2020 Surgical History Surgery Date Site/Laterality Comments KNEE ARTHROSCOPY 05/2014 Right PROCEDURE: [place] ARTHROSCOPY AID [place] SPINE&/FX KNEE W/O FIXJ TONSILLECTOMY PROCEDURE: HISTORICAL TONSILLECTOMY OTHER SURGICAL HISTORY PROCEDURE: [place] TOTAL ABDOMINAL HYSTERECT W/WO RMVL TUBE OVARY; COMMENT: for fibroids in her 40s SECTION PROCEDURE: [place] DELIVERY ONLY; COMMENT: x3 OTHER SURGICAL HISTORY PROCEDURE: HISTORY OTHER; COMMENT: repair deviated septum CARPAL TUNNEL RELEASE Bilateral PROCEDURE: HISTORICAL CARPAL TUNNEL REL KNEE ARTHROSCOPY W/ DEBRIDEMENT 01/09/16 Right PROCEDURE: [place] ARTHRS KNEE DEBRIDEMENT/SHAVING ARTCLR CRTLG; COMMENT: Dr. Conor Harris OTHER SURGICAL HISTORY PROCEDURE: [place] ICAPSULAR CATARACT XTRJ INSJ IO LENS PRSTH 1 STG OTHER SURGICAL HISTORY 04/24/2013 PROCEDURE: COLONOSCOPY, REMOVE LESION; COMMENT: hyperplastic polyp COLONOSCOPY 07/30/2018 PROCEDURE: HISTORICAL COLONOSCOPY; COMMENT: Dr. Erick Turner; dean, tanya, 5 year f/u UPPER GASTROINTESTINAL ENDOSCOPY 07/30/2018 PROCEDURE: UPPER GI ENDOSCOPY/EXAM; COMMENT: Dr. Suarez COLONOSCOPY 07/30/2018 PROCEDURE: HISTORICAL COLONOSCOPY; COMMENT: Dr. Suarez; tanya, int hem, no polyps HYSTERECTOMY Medical History [...] AM EDT Office Visit Bariatric Surgery - [place] [address] [phone] Charlie Matute MD [address] [address] 12/18/2024 9:30 AM EDT Nutrition Bariatric Surgery - [place] [address] [phone] [address] Andrews, RD [address] [phone] 03/12/2025 8:45 AM EDT Office Visit Pulmonolgy - [place] [address] [phone] Kaela Costa MD [address] [address] Health Maintenance Due Date Last Done Comments Medicare Annual Wellness Visit 06/24/2022 COVID-19 Vaccine (8 - Pfizer risk season) 2025 08/15/2024, 05/19/2022, 05/03/2022, Additional history [...] is recommended in 1 year. Mammo Location: [facility], [address] [place] [address], [address], . -------- FINAL REPORT -------- Dictated By: Timbo Orona Dictated Date: 10/16/2024 12:09 ET Assigned Physician: Timbo Orona Reviewed and Electronically Signed By: Timbo Orona Signed Date: 10/16/2024 12:13 ET Workstation ID: [id number] Transcribed By: Self Edit Transcribed Date: 10/16/2024 [...] is recommended in 1 year. Mammo Location: [facility], [address] [place] [address], [address], . -------- FINAL REPORT -------- Dictated By: Timbo Orona Dictated Date: 10/16/2024 12:09 ET Assigned Physician: Timbo Orona Reviewed and Electronically Signed By: Timbo Orona Signed Date: 10/16/2024 12:13 ET Workstation ID: [id number] Transcribed By: Self Edit Transcribed Date: 10/16/2024 [...] probability of hip fracture of 6.4%. Code 45567 -------- FINAL REPORT -------- Dictated By: Aj Mims Dictated Date: 07/17/2024 11:26 ET Assigned Physician: Aj Mims Reviewed and Electronically Signed By: Aj Mims Signed Date: 07/17/2024 11:27 ET Workstation ID: [id number] Transcribed By: Self Edit Transcribed Date: 07/17/2024 [...] is 101% of that of young normals gpa289% of that of age matched controls. This yields a T-score of 0.1 and aZ-score of 1.4 and there is therefore no evidence of osteoporosis orosteopenia here. The mean bone mineral density of the femurs bilaterally is 0.852 gm/ow5wugvq is 85% of that of young normals [...] probability of hip fracture of 6.4%. Code 54663 -------- FINAL REPORT -------- Dictated By: Aj Mims Dictated Date: 07/17/2024 11:26 ET Assigned Physician: Aj Mims Reviewed and Electronically Signed By: Aj Mims Signed Date: 07/17/2024 11:27 ET Workstation ID: [id number] Transcribed By: Self Edit Transcribed Date: 07/17/2024 11:26 ET Bernard Uriarte MD [facility] [place] DXA PROCEDURES Final Result * (ABNORMAL) Lipid panel with reflex to direct LDL (06/11/2024 12:27 PM EST) [facility] Cholesterol 232(H) 0 - 200 mg/dL LAB CHEMISTRY METHOD 06/11/2024 6:33 PM EST [facility] Triglycerides 222(H) 0 - 150 mg/dL LAB CHEMISTRY METHOD 06/11/2024 6:33 PM EST [facility] HDL 52 >=40 mg/dL LAB CHEMISTRY METHOD 06/11/2024 6:33 PM EST [facility] LDL Calculated 136(H) 0 - 100 mg/dL LAB CHEMISTRY METHOD 06/11/2024 6:[address] [facility] VLDL Cholesterol Jeff 44.4 mg/dL LAB CHEMISTRY METHOD 06/11/2024 6:[address] [facility] Non HDL Chol. (LDL+VLDL) 180(H) <145 mg/dL LAB CHEMISTRY METHOD 06/11/2024 6:[address] [facility] Chol/HDL Ratio 4.5(H) 0.0 - 4.4 LAB CHEMISTRY METHOD 06/11/2024 6:[address] [facility] Blood Venous blood specimen / Unknown Venipuncture / Unknown 06/11/2024 12:27 PM EST 06/11/2024 12:27 PM EST us Bernard Uriarte MD LAB BLOOD ORDERABLES Final Resu lt [facility] [address] [place] [address], * Comprehensive metabolic panel (06/05/2024 10:30 AM EST) Sodium 142 133 - 145 mmol/L LAB CHEMISTRY METHOD 06/05/2024 3:15 PM EST [facility] Potassium 4.2 3.5 - 5.5 mmol/L LAB CHEMISTRY METHOD 06/05/2024 3:[address] [facility] Chloride 107 96 - 110 mmol/L LAB CHEMISTRY METHOD 06/05/2024 3:15 PM EST [facility] CO2 29 21 - 32 mmol/L LAB CHEMISTRY METHOD 06/05/2024 3:[address] [facility] Anion Gap 6 3 - 11 LAB CHEMISTRY METHOD 06/05/2024 3:[address] [facility] Glucose 86 70 - 100 mg/dL LAB CHEMISTRY METHOD 06/05/2024 3:[address] [facility] BUN 13 5 - 25 mg/dL LAB CHEMISTRY METHOD 06/05/2024 3:[address] [facility] Creatinine 0.68 0.50 - 1.10 mg/dL LAB CHEMISTRY METHOD 06/05/2024 3:[address] [facility] eGFR 90 >=60 mL/min/1. 73m2 LAB CHEMISTRY METHOD 06/05/2024 3:[address] [facility] Comment:Calculation based on the??Chronic Kidney Disease Epidemiology Collaboration (CKD-EPI) equation refit??without adjustment for race. BUN/Creatinine Ratio 19.1 LAB CHEMISTRY METHOD 06/05/2024 3:[address] [facility] Calcium 10.1 8.5 - 10.5 mg/dL LAB CHEMISTRY METHOD 06/05/2024 3:[address] [facility] AST (SGOT) 25 10 - 42 unit/L LAB CHEMISTRY METHOD 06/05/2024 3:[address] [facility] ALT (SGPT) 30 10 - 60 unit/L LAB CHEMISTRY METHOD 06/05/2024 3:[address] [facility] Alkaline Phosphatase 104 42 - 121 unit/L LAB CHEMISTRY METHOD 06/05/2024 3:[address] [facility] Total Protein 6.9 6.0 - 8.0 g/dL LAB CHEMISTRY METHOD 06/05/2024 3:[address] [facility] Albumin 4.0 3.2 - 5.0 g/dL LAB CHEMISTRY METHOD 06/05/2024 3:[address] [facility] Total Bilirubin 0.4 0.0 - 1.4 mg/dL LAB CHEMISTRY METHOD 06/05/2024 3:15 PM EST [facility] Blood Venous blood specimen / Unknown Venipuncture / Unknown 06/05/2024 10:30 AM EST 06/05/2024 10:30 AM EST Bernard Uriarte MD LAB BLOOD ORDERABLES Final Resu lt [facility] [address] [place] [address], * Colonoscopy (12/04/2023) Colonoscopy no interpretation , [...] Phone Billing Address Personal/Family Self [address] [place] [phone] [employer] MEDICARE Care Teams Shift Nurse Manager Relationship Specialty Start Date End Date Bernard Uriarte MD [address] [place] [address] PCP - General Internal Medicine 06/05/24
--- OUTSIDE RECORDS SUMMARY | 2024-11-25 13:08 | XMS_ITS | Encounter Summary ---
Author Organization [facility] Address [address] [place] [address] Phone Care Team Providers Care Paper Tube Cutter Name Role Phone Pcp, Unknown Primary Care Provider Unavailabl e Encounter Details Date Type Department Care Team (Late st Contact Info) Description 06/22/2023 Procedure Pass [facility], Ct Scan - [address] [address] Social History Tobacco Use Types Packs/Day Years [...] 06/22/2023 7:35 PM Joy Pena RN * [place] Suicide Severity Rating Scale (Screener/Recent Self-Report) Question [...] on filedocumented in this encounter Care Teams Paper Tube Cutter Relationship Specialty Start Date End Date Pcp, Unknown PCP - General 06/22/23 documented as of this encounter Additional Source Comments The information contained in this document represents components of the legal health record. It is not the complete legal health record.[facility]
--- OUTSIDE RECORDS SUMMARY | 2024-11-25 13:08 | XMS_ITS | Patient Health Record ---
Author Organization [facility] Address [address] [place] [address] Care Team Providers Care Hvac/R Instructor Name Role Phone Bernard Uriarte Primary Care Provider Unavailabl e Surya Dasilvamie Unavailable [phone] Marika ROBERSON, Unavailable Unavailable Allergies No Known Allergies Results [...] primary osteoarthritis of the ankle and/or foot (930699879) Primary osteoarthritis, right ankle and foot (M19.071) Active confirmed Problem Localized, primary osteoarthritis of the ankle and/or foot (561732564) Primary osteoarthritis, left ankle and foot (M19.072) Active confirmed Problem Acquired hallux rigidus (4606985) Hallux rigidus, right foot (M20.21) Active confirmed Problem 16475036 Acquired equinus deformity of left foot (M21.6X2) Active confirmed Problem 70795049 Acquired equinus deformity of right foot (M21.6X1) Active confirmed Problem Osteoarthritis of midtarsal joint of left foot (9687210889024023 ) Osteoarthritis of midtarsal joint of left foot (M19.072) Active confirmed Problem Osteoarthritis of midtarsal joint of right foot (0776277862901829 ) Osteoarthritis of midtarsal joint of right foot (M19.071) Active confirmed Vital Signs Blood pressure diastolic 77 mm Hg 10/03/2024 Height 5 ft in 10/03/2024 Blood pressure systolic 121 mm Hg 10/03/2024 Weight 175 lbs 10/03/2024 BMI 34.17 kg/m2 10/03/2024 Procedures Procedure Date Ordered Date Performed Result Body Sit e , Q6189-POTFX/INJECT, JOINT/BURSA 10/03/2024 N/A Encounters Encounter Location Date Provider Diagnosis [address] [address] 08/27/2024 Nubia Black Pain in left foot [...] left toe(s) M79.675 and Tinea unguium B35.[address] [address] 10/03/2024 Nubia Black Pain in left foot M79.672 ; Osteoarthritis of midtarsal joint of left foot M19.072 ; Pain in left ankle and joints of left foot M25.572 ; Bursitis of left foot M77.52 ; Pain in left toe(s) M79.675 and Tinea unguium B35.[address] [address] 03/14/[address] [address] 08/28/[address] [address] 10/03/2024 Nubia Black Assessments Encounter Date Diagnosis [...] 12/21/2020 X ray : Foot, right 3V 11/13/201750931, N4229-GMPPD/INJECT, JOINT/BURSA 0 12/17/201942519, G8928-HGTML/INJECT, JOINT/BURSA 0 02/04/202068102, Z9998-MCIPA/INJECT, JOINT/BURSA 0 10/25/202138237, D6646-KXNVB/INJECT, JOINT/BURSA 0 10/03/202448443, P4773-TQMSS/INJECT, JOINT/BURSA 0 10/22/202067525, D8774-KVDCB/INJECT, JOINT/BURSA 0 11/13/201729481,T8988-CRJ TENDON SHEATH/LIGAMENT 0 03/17/202050070,E5668-ZVC TENDON SHEATH/LIGAMENT 0 12/14/2017 IV as clinically indicated by Radiologis dustin w,w/o contrast 12/21/2020 Insurance Providers Payer Name Payer Address Payer Phone Subscriber Number Group Number Insured Name Patient Relationship to Insured Coverage Start Date Coverage End Date [facility] are [address] [place] [address] [id number] Chiquita Brown Self - patient is the [...]
--- OUTSIDE RECORDS SUMMARY | 2024-11-25 13:08 | XMS_ITS | Encounter Summary ---
Author Organization [facility] Address [address] [place] [address] Phone Care Team Providers Care Tax Expert Name Role Phone Pcp, Unknown Primary Care Provider Unavailabl e Encounter Details Date Type Department Care Team (Late st Contact Info) Description 06/22/2023 Procedure Pass [facility], Ct Scan - [address] [address] Social History Tobacco Use Types Packs/Day Years [...] 06/22/2023 7:35 PM Joy Pena RN * [place] Suicide Severity Rating Scale (Screener/Recent Self-Report) Question [...] on filedocumented in this encounter Care Teams Tax Expert Relationship Specialty Start Date End Date Pcp, Unknown PCP - General 06/22/23 documented as of this encounter Additional Source Comments The information contained in this document represents components of the legal health record. It is not the complete legal health record.[facility]
--- OUTSIDE RECORDS SUMMARY | 2024-11-25 13:08 | XMS_ITS | Data Portability ---
Author Organization [place] [facility], [facility] Address [address] [place] [address] Care Team Providers Care Developer Architect Name Role Phone OSVALDO GARCIA Primary Care [...] ole-betam ethasone 1 %-0.05 % topical cream [facility], [address] [facility] [facility], [place], [address], 13:22:56 Patient TargetsNo targets recorded. Patient InstructionsNo instructions recorded. Reason for Referral None Reported. Problems Name Problem SNOMED Code Status Onset Date Resolution Date Notes Provider Name and Address Organization Details Recorded Time Chronic otitis externa 56941571 Active 2023 VLADIMIR SIMPSON MD [address] [address], [place], [address], [facility] 4 13:21:40 Gastroesophage al reflux disease without esophagitis 367988434 Active 2023 VLADIMIR SIMPSON MD [address] [place] [address], [place], [address], [facility] - [facility] 08:36:07 Chronic pharyngitis 334382 Active 2023 VLADIMIR SIMPSON MD [address] [address], [place], [address], [facility] 08:36:37 Problem Notes None recorded. Procedures Surgical History Date Name Laterality Status Provider Name and Address Organization Details Recorded Time 04/18/20 24 Fiberoptic Laryngoscopy (Comprehensive) completed VLADIMIR SIMPSON MD [address], [address], [facility] 04/18/2024 13:19:17 Imaging Results None recorded. [...] Updated DateTime 04/18/2024 152.4 cm 35.5 kg/m2 99143.81 g Jenny Jackson [place] - [facility] 04/18/2024 13:14:38 Social History None recorded. [...] Code Diagnosis Note VLADIMIR SIMPSON MD [facility] [address] [address] 04/18/2024 12:37:33 04/18/2024 13:26:12 Chronic otitis externa 94709536 H60.62 Gastroesop hageal reflux disease without esophagitis 893523068 K21.9 Chronic pharyngitis 1400 04 J31.2 Health Concerns Section Related Observation LastModified by Organization Detai ls LastModified Time None Recorded Concern Status LastModified by Organization Details LastModified Time None Recorded Advance Directives Directive None Recorded Payers Insurance Date Sequence Insurance Name Policy Number Policy Chavez Covered Member ID Chavez Member ID Guarantor Name 04/18/[address] [facility] (MEDICARE REPLACEMENT/A DVANTAGE - HMO) [id number] Chiquita Brown [id number] Chiquita Brown Notes Date Note Type Note Provider Name and Address Organization Details Recorded Time 04/18/2024 text/html 78 yo F presents for assessment. Sore throat over the summer for 3 months over the summer. [place] in area of larynx. Worse with swallowing. [...] 2.5 - 3 months. VLADIMIR SIMPSON MD [address] [place] [address], [address], [place] - [facility] 04/21/2024 08:38:34 OBGyn Episode No OBEpisode recorded.
--- OUTSIDE RECORDS SUMMARY | 2024-11-25 13:08 | XMS_ITS ---
Author Organization [facility] [place] Address [address] [facility] [address] Care Team Providers Care Clerical Warehouseman Name Role Phone Bernard Uriarte Primary Care Provider Unavailabl e Brown, Nubia Unavailable [phone] Marika ROBERSON, Antonia Unavailable Unavailable REASON FOR VISIT Med question Encounters Encounter Location Date Provider Diagnosis [address] [place] [address] 08/28/2024 Nubia Dasilva Plan Of Treatment No Information Progress Notes * Chiquita BROWN ADOB: [birth year] (79 yo F)Acc No.[id number]:08/28/2024 Patient:?Chiquita BROWN :1945???Age:79 Y???Sex:Female Address:[address] [place], [place] [address] [address] [place] [address] * true * Date:? Generated for Printi ng/Faerumg/eTransmitting on:?11/25/2024 01:08 PM EDT
--- OUTSIDE RECORDS SUMMARY | 2024-11-25 13:08 | XMS_ITS | Encounter Summary ---
Author Organization [facility] Address [address] [place] [address] Phone Care Team Providers Care Media Analyst Name Role Phone Pcp, Unknown Primary Care Provider Unavailabl e Encounter Details Date Type Department Care Team (Late st Contact Info) Description 06/22/2023 Procedure Pass [facility], Ct Scan - [address] [address] Social History Tobacco Use Types Packs/Day Years [...] 06/22/2023 7:35 PM Joy Pena RN * [place] Suicide Severity Rating Scale (Screener/Recent Self-Report) Question [...] on filedocumented in this encounter Care Teams Media Analyst Relationship Specialty Start Date End Date Pcp, Unknown PCP - General 06/22/23 documented as of this encounter Additional Source Comments The information contained in this document represents components of the legal health record. It is not the complete legal health record.[facility]
--- OUTSIDE RECORDS SUMMARY | 2024-11-25 13:08 | XMS_ITS ---
Author Organization [facility] [place] Address [address] [facility] [place] [address] Care Team Providers Care Project Management Specialist Name Role Phone Bernard Uriarte Primary Care Provider Unavailabl e Nubia Dasilva Unavailable [phone] Marika ROBERSON, Unavailable Unavailable Allergies No Known Allergies REASON [...] Date Performed Result Body Sit e , F0220-YSEVP/INJECT, JOINT/BURSA 10/03/2024 N/A Encounters Encounter Location Date Provider Diagnosis [facility] [address] 10/03/2024 Nubia Black Pain in left foot [...] Pending Test Test Name Order Date , W9793-OIIAB/INJECT, JOINT/BURSA 0 10/03/2024 Next Appt Details Follow [...] Dave BROWNa ADOB: [birth year] (79 yo F)Acc No.[id number]:10/03/2024 Progress Note Patient:?Chiquita BROWN Provider:?Nubia Dasilva DPM :1945???Age:79 Y???Sex:Female D ate:10/03/2024 Address:[address] [place] [phone] Pcp:Bernard Uriarte Subjective: * Chief Complaints: * [...] Diagno stic Procedure:?[place]gent care [place] [place] 10[place]02/2022 * Family History:?Mother: dece [...] yes, golf. ?Marital status: . ?Occupation: retired [employer] service. ???Drug/Alcohol:?AUDIT-C (Standard)?Did you have a drink [...] * Vitals:?Ht: 5 ft, Wt: 175, B DC: 34.17, Shoe size: 6, BP: 121/77 mm [...] Improvement??? Plan: * Treatment: * Procedures:?Injection:?Sm. Joint, Bursa?38952, J0702 Injection - sm/med joint bursa/capsule with [...] * Procedure Codes:?J0702 INJ B ETAMETHSN ACTAT&SOD [id number] DRAIN/INJECT, JOINT/BURSA, Modifiers: XS * Preventive Medicine:? [...] Dasilva DPM Date:?2024 Generated for Jenna little/Anthony/Debraitting on:?11/25/2024 01:07 PM EDT History and Physical Notes * HPI [...]
--- OUTSIDE RECORDS SUMMARY | 2024-11-25 13:08 | XMS_ITS | Clinical Summary ---
Author Organization [facility] Address [address] [place] [id number] Phone Care Team Providers Care Terminal Operations Manager Name Role Phone Pcp, Unknown Primary Care [...] on file Medical Devices Not on file Insurance * Guarantor: Chiquita Brown Account Type Relation to Patient Date of Phone Billing Address Personal/Family Self [address] [place] [address] [facility] MEDICARE REPLACEMENT * Guarantor: Chiquita Brown Account Type Relation to Patient Date of Phone Billing Address Personal/Family Self 1945 [address] [place] [address] [facility] MEDICARE REPLACEMENT * Guarantor: Chiquita Brown Account Type Relation to Patient Date of Phone Billing Address Personal/Family Self 1945 [address] [place] [address] [facility] MEDICARE REPLACEMENT * Guarantor: Chiquita Brown Account Type Relation to Patient Date of Phone Billing Address Personal/Family Self [address] [place] [address] [facility] MEDICARE [address]PL[address] [place] [address] [facility] MEDICARE REPLACEMENT [address] [place] [address] [facility] MEDICARE REPLACEMENT [place] [id number] * Guarantor: Chiquita Brown Account Type Relation to Patient Date of Phone Billing Address [employer] Liability Self 1945 [address] [place] [address] [facility] MEDICARE REPLACEMENT [address] [employer] Care Teams Terminal Operations Manager Relationship Specialty Start Date End Date Pcp, Unknown PCP - General 06/22/23 Additional Source Comments The information contained in this document represents components of the legal health record. It is not the complete legal health record.[facility]
== END 2024-11-25 12:51 | disposition home or self-care (01) ==
LOC: HO.HSMS 11:36
PROVIDERS: PCP Internal Medicine Hematology & Oncology; Visit Provider Psychiatry & Neurology Neurology
DX: R41.89 Other symptoms and signs involving cognitive functions and awareness (principal)
CPT/HCPCS: 99213

== ENCOUNTER → 2024-11-25 11:36 | Outpatient (BNVA) | payer MEDICARE, SELFPAY | PROVIDERS: PCP Internal Medicine Hematology & Oncology; Visit Provider Psychiatry & Neurology Neurology | DX: Z13.89 Encounter for screening for other disorder (principal) ==

== ENCOUNTER 2024-12-10 08:35 | Outpatient (AMB) | payer MEDICARE, SELFPAY ==
--- NOTE | 2024-12-10 08:36 | A.OFFVIS_ITS ---
Vital Signs 12/10/24 08:41 Height 5 ft Weight 177 lb BMI 34.6 Intake Visit Reasons: OV- LT Knee 07/18/24 DR Intake Note: Chiquita is a 79 year old female who presents with complaints of mild to moderate discomfort in her left knee after undergoing left knee arthroscopic surgery on 07/18/2024. The patient states that she did do quite a bit of walking while on a vacation cruise last month. She does take Celebrex on a daily basis. She wishes to hold off on total knee replacement surgery for as long as possible. She has had cortisone injections and viscosupplementation injections in the past which gave her temporary relief. Allergies No Known Allergies Allergy (Verified 12/10/24 08:41) Medication List - Last Reconciled 12/10/24 by Gene Mcqueen MD amlodipine 10 mg PO DAILY aspirin (Adult Aspirin Regimen) 81 mg PO DAILY escitalopram oxalate 20 mg PO DAILY gemfibrozil 600 mg PO BID omeprazole 20 mg PO BID rosuvastatin 40 mg PO DAILY semaglutide (Ozempic) mg subcut trazodone 50 mg PO BEDTIME [facility] Medical History Cognitive disorder Paresthesias History of deviated nasal septum Arthritis Cough URI, acute Asthma Mucoid cyst of joint Spinal stenosis of lumbar region Avulsion fracture of ankle Chronic pain of right knee 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 pylori infection Anxiety and depression Carotid artery aneurysm Hypertension Class 2 obesity Coronary artery calcification Osteopenia Microscopic hematuria Edema of both legs Insomnia Avulsion fracture of left ankle Lumbar radiculopathy Thyroid nodule FABIAN (obstructive sleep apnea) History of colon polyps GERD (gastroesophageal reflux disease) History of COVID-19 Abnormal stress test TIA (transient ischemic attack) Post-nasal drip Osteoarthritis of knee Surgical History History of nasal surgery Hx of bilateral cataract extraction History of esophagogastroduodenoscopy (EGD) H/O colonoscopy Hx of cardiac catheterization H/O total hysterectomy H/O section H/O knee surgery History of carpal tunnel release Family History Father No problems noted. Mother No problems noted. Social History Household Members: Spouse Housing: House Are you a primary career development coordinator/teacher to a significant other at home: No Do you presently have visiting nurse or other home services: No Alcohol intake: never Patient Tobacco Use Status: Former Tobacco user Physical Exam Vital Signs: BMI result Body Mass Index 34.6 Const Other: Well-nourished well-developed very friendly female awake alert and oriented x3 in no acute distress Extrem Other: Left knee examination shows a minimal effusion, palpable crepitus with range of motion, mild discomfort with range of motion, no instability Assessment & Plan Assessment & Plan (1) Left knee pain: Code(s): M25.562 - Pain in left knee Category: Medical Plan Ms. Brown continues to do fairly well after undergoing left knee arthroscopic surgery on 07/18/2024. She does have residual discomfort due to degenerative joint disease. I had a lengthy discussion with the patient regarding the treatment options. At this point the patient's symptoms are tolerable to her. She will contact my office on an as-needed basis should she wished to proceed with a another viscosupplementation injection such as Durolane. Otherwise she will follow up on an as-needed basis. Feel free to call me at any time should questions regarding her orthopedic management arise. I spent 21 minutes in reviewing the patient's records and imaging studies, seeing the patient and documenting in the medical record. Coding Level of Care Code Est Pt Level 3 (89058) Complex EM visit Add On G2211 Diagnoses Left knee pain M25.562
[2024-12-10 08:41] VITALS: BMI 34.6
--- OUTSIDE RECORDS SUMMARY | 2024-12-10 08:51 | XMS_ITS | Clinical Summary ---
Author Organization [address] Building Address [address] [place] [phone] Phone Care Team Providers Care Hardware Design Engineer Name Role Phone Bernard Uriarte MD Primary Care Provider [phone] Allergies No known active allergies Medications aspirin 81 mg EC tablet Take 1 [...] a day. 90 each 1 06/11/20 24 Active Additional Information Patient not taking.Reported on [...] next 30 min. 4 each 07/21/19 25 2025 Active Additional Information Patient not taking.Reported on 10/22/2024 gabapentin (NEURONTIN) 300 mg capsule Take 1 p.o. day 1, 1 p.o. twice daily on day 2, then 1 p.o. 3 times daily 90 each 10/29/19 25 Active rosuvastatin (CRESTOR) 40 mg tablet TAKE 1 TABLET BY MOUTH DAILY 100 tablet 12/02/19 25 Active traZODone (DESYREL) 50 mg tablet TAKE 1 TABLET BY MOUTH AT BEDTIME 100 tablet 12/02/19 25 Active escitalopram (LEXAPRO) 20 mg tablet TAKE 1 TABLET BY MOUTH DAILY 100 tablet 12/02/19 25 Active gemfibroziL (LOPID) 600 mg tablet TAKE 1 TABLET BY MOUTH TWICE DAILY 200 tablet 12/02/19 25 Active amLODIPine (NORVASC) 10 mg tablet TAKE 1 TABLET BY MOUTH DAILY 100 tablet 12/02/19 25 Active omeprazole (PriLOSEC) [address] capsule TAKE 1 CAPSULE BY MOUTH TWICE DAILY 200 capsule 12/02/19 25 Active semaglutide (Ozempic) 2 mg/dose (8 mg/3 mL) injection pen Inject 2 mg under the skin every 7 (seven) days for 28 days. 3 mL 12/06/19 25 2024 Active traZODone (DESYREL) 50 mg tablet TAKE 1 TABLET BY MOUTH AT BEDTIME 04/02/20 24 2024 Discontinued rosuvastatin (CRESTOR) 40 mg tablet Take 1 tablet (40 mg total) by mouth 1 (one) time each day. 04/02/20 24 2024 Discontinued amLODIPine (NORVASC) 10 mg tablet Take 1 tablet (10 mg total) by mouth 1 (one) time each day. 04/02/20 24 2024 Discontinued escitalopram (LEXAPRO) 20 mg tablet Take 1 tablet (20 mg total) by mouth 1 (one) time each day. 04/02/20 24 2024 Discontinued gemfibroziL (LOPID) 600 mg tablet Take 1 tablet (600 mg total) by mouth 2 (two) times a day. 09/26/19 24 2024 Discontinued omeprazole (PriLOSEC) [address] capsule Take 1 capsule (20 mg total) by mouth 2 (two) times a day. 09/26/19 24 2024 Discontinued semaglutide (Ozempic) 2 mg/dose (8 mg/3 mL) injection pen Inject 2 mg under the skin every 7 (seven) days. 3 mL 10/07/19 25 2024 Discontinued capsaicin 0.033 % cream Apply 1 Application topically 3 (three) times a day. 30 g 2 10/29/19 25 2024 Ozempic 2 mg/dose (8 mg/3 mL) injection pen INJECT 2 MG UNDER THE SKIN EVERY 7 DAYS 3 mL 11/13/19 25 2024 Discontinued(R eorder) Active Problems Problem Noted Date Diagnosed Date Mixed hyperlipidemia 04/29/2024 Overview (04/29/2024): Previously saw Dr. Cheng, [facility] Osteoarthritis 04/29/2024 Overview (04/29/2024): Arthritis treatment [...] Obstructive sleep apnea syndrome 05/08/2018 Overview (04/29/2024): [facility] Home Polysomnogram: Date 05/06/2018; AHI 19, Unclassified apneas 20; Obstructive apneas 18; Central apneas 10; Mixed apneas 0; hypopneas 88; average oxygen saturation 88% (lowest 70% with saturations <88% for 5% or more of study) RBM Polysomnogram treatment study. Date 06/23/2018 . SE [...] Ortega Osteopenia 03/11/2016 Overview (04/29/2024): Dexas with brand ambassadorDr. Tovar 05/2020 Coronary artery calcification 03/02/2016 Overview (04/29/2024): Normal stress echo 09/2016 Follows with cardiology, Dr. Rangel Cheng, [facility] Last Assessment & Plan: Patient with atypical [...] Follows with Dr Morrison Carotid artery aneurysm ([facility] V24) 02/22/2016 Overview (04/29/2024): 2mm left ICA [...] Encounters Date Type Department Care Team Description 12/04/2024 Telephone Bariatric Surgery - [address] [phone] Charlie Matute MD Med Refill (Ozempic) 11/11/2024 Telephone Pulmonolgy - [place] [address] [facility] [address] [place] [phone] Portia Wren [place] 11/09/2024 Telephone Bariatric Surgery - [place] [address] [facility] [address] [place] [phone] Charlie Matute MD Med Refill 10/28/2024 1:15 PM EDT Office Visit [facility] [address] [place] [phone] Aj Painter MD Post herpetic neuralgia (Primary Dx) 10/28/2024 Telephone Pediatrics - [facility] [address] [place] [address] Bernard Uriarte MD Herpes Zoster 10/22/2024 11:00 AM EDT Office Visit Pulmon[address] [phone] Kaela Costa MD FABIAN on CPAP (Primary Dx); Moderate persistent asthma, unspecified whether complicated 10/17/2024 Telephone Pulmonolgy [address] [phone] Kaela Costa MD dme request 10/16/2024 8:53 AM EDT - 10/16/2024 11:59 PM EDT Hospital Encounter Radiology Department - [address] [phone] Encounter for screening mammogram for breast cancer Discharge Disposition: Home or Self Care 09/16/2024 9:30 AM EST Nutrition Bariatric Surgery - [address] [phone] Class 1 obesity with serious comorbidity and body mass index (BMI) of 34.0 to 34.9 in adult, unspecified obesity type (Primary Dx) 09/16/2024 8:30 AM EST Office Visit Bariatric Surgery [address] [phone] Charlie Matute MD Class 1 obesity due [...] Site/Laterality Comments KNEE ARTHROSCOPY 05/2014 Right PROCEDURE: GA ARTHROSCOPY AID TX SPINE&/FX KNEE W/O FIXJ TONSILLECTOMY PROCEDURE: HISTORICAL TONSILLECTOMY OTHER SURGICAL HISTORY PROCEDURE: GA TOTAL ABDOMINAL HYSTERECT W/WO RMVL TUBE OVARY; COMMENT: for fibroids in her 40s SECTION PROCEDURE: GA DELIVERY ONLY; COMMENT: x3 OTHER SURGICAL HISTORY PROCEDURE: HISTORY OTHER; COMMENT: repair deviated septum CARPAL TUNNEL RELEASE Bilateral PROCEDURE: HISTORICAL CARPAL TUNNEL REL KNEE ARTHROSCOPY W/ DEBRIDEMENT 01/09/16 Right PROCEDURE: GA ARTHRS KNEE DEBRIDEMENT/SHAVING ARTCLR CRTLG; COMMENT: Dr. Conor Harris OTHER SURGICAL HISTORY PROCEDURE: GA ICAPSULAR CATARACT XTRJ INSJ IO LENS PRSTH [...] AM EDT Office Visit Bariatric Surgery - [place] [address] [facility] [address] [place] [phone] Charlie Matute MD [address] [address] 12/18/2024 9:30 AM EDT Nutrition Bariatric Surgery - [place] [address] [phone] Shell Andrews, ADORE [address] [phone] 03/12/2025 8:45 AM EDT Office Visit Pulmonolgy - [place] [address] [facility] [address] [place] [phone] Kaela Costa MD [address] [address] Health Maintenance Due Date Last Done Comments [...] Routine 06/05/2024 10:30 AM EST Preop examination COLONOSCOPY Routine 12/04/2023 HEPATITIS C SCREENING Routine [...] is recommended in 1 year. Mammo Location: [facility], [address] [place] [address], [id number], . -------- FINAL REPORT -------- Dictated By: Timbo Orona Dictated Date: 10/16/2024 12:09 ET Assigned Physician: Timbo Orona Reviewed and Electronically Signed By: Timbo Orona Signed Date: 10/16/2024 12:13 ET Workstation ID: [id number] Transcribed By: Self Edit Transcribed Date: 10/16/2024 [...] breast. Procedure Note Timbo Orona MD - 04/03/2025 STUDY: Bilateral screening mammography with tomosynthesis and [...] is recommended in 1 year. Mammo Location: [facility], [address] [place] [address], [phone], . -------- FINAL REPORT -------- Dictated By: Timbo Orona Dictated Date: 10/16/2024 12:09 ET Assigned Physician: Timbo Orona Reviewed and Electronically Signed By: Timbo Orona Signed Date: 10/16/2024 12:13 ET Workstation ID: [id number] Transcribed By: Self Edit Transcribed Date: 10/16/2024 [...] probability of hip fracture of 6.4%. Code 59642 -------- FINAL REPORT -------- Dictated By: Aj Mims Dictated Date: 07/17/2024 11:26 ET Assigned Physician: Aj Mims Reviewed and Electronically Signed By: Aj Mims Signed Date: 07/17/2024 11:27 ET Workstation ID: [id number] Transcribed By: Self Edit Transcribed Date: 07/17/2024 [...] is 101% of that of young normals lxa432% of that of age matched controls. This yields a T-score of 0.1 and aZ-score of 1.4 and there is therefore no evidence of osteoporosis orosteopenia here. The mean bone mineral density of the femurs bilaterally is 0.852 gm/eh9xxfpz is 85% of that of young normals [...] probability of hip fracture of 6.4%. Code 39159 -------- FINAL REPORT -------- Dictated By: Aj Mims Dictated Date: 07/17/2024 11:26 ET Assigned Physician: Aj Mims Reviewed and Electronically Signed By: Aj Mims Signed Date: 07/17/2024 11:27 ET Workstation ID: [id number] Transcribed By: Self Edit Transcribed Date: 07/17/2024 11:26 ET Bernard Uriarte MD [facility] DXA PROCEDURES Final Result * (ABNORMAL) Lipid panel with reflex to direct LDL (06/11/2024 12:27 PM EST) Cholesterol 232(H) 0 - 200 mg/dL LAB CHEMISTRY METHOD 06/11/2024 6:33 PM [facility] Triglycerides 222(H) 0 - 150 mg/dL LAB CHEMISTRY METHOD 06/11/2024 6:33 PM [facility] HDL 52 >=40 mg/dL LAB CHEMISTRY METHOD 06/11/2024 6:33 PM [facility] LDL Calculated 136(H) 0 - 100 mg/dL LAB CHEMISTRY METHOD 06/11/2024 6:33 PM [facility] VLDL Cholesterol Jeff 44.4 mg/dL LAB CHEMISTRY METHOD 06/11/2024 6:33 PM [facility] Non HDL Chol. (LDL+VLDL) 180(H) <145 mg/dL LAB CHEMISTRY METHOD 06/11/2024 6:33 PM [facility] Chol/HDL Ratio 4.5(H) 0.0 - 4.4 LAB CHEMISTRY METHOD 06/11/2024 6:33 PM [facility] Blood Venous blood specimen / Unknown Venipuncture / Unknown 06/11/2024 12:27 PM EST 06/11/2024 12:27 PM EST Bernard Uriarte MD LAB BLOOD ORDERABLES Final Resu lt [facility] [address] [place] [address], [place] [phone] * Comprehensive metabolic panel (06/05/2024 10:30 AM EST) Sodium 142 133 - 145 mmol/L LAB CHEMISTRY METHOD 06/05/2024 3:15 PM [facility] Potassium 4.2 3.5 - 5.5 mmol/L LAB CHEMISTRY METHOD 06/05/2024 3:15 PM [facility] Chloride 107 96 - 110 mmol/L LAB CHEMISTRY METHOD 06/05/2024 3:15 PM [facility] CO2 29 21 - 32 mmol/L LAB CHEMISTRY METHOD 06/05/2024 3:15 PM [facility] Anion Gap 6 3 - 11 LAB CHEMISTRY METHOD 06/05/2024 3:15 PM [facility] Glucose 86 70 - 100 mg/dL LAB CHEMISTRY METHOD 06/05/2024 3:15 PM [facility] BUN 13 5 - 25 mg/dL LAB CHEMISTRY METHOD 06/05/2024 3:15 PM [facility] Creatinine 0.68 0.50 - 1.10 mg/dL LAB CHEMISTRY METHOD 06/05/2024 3:15 PM [facility] eGFR 90 >=60 mL/min/1. 73m2 LAB CHEMISTRY METHOD 06/05/2024 3:15 PM EST [facility] Comment:Calculation based on the??Chronic Kidney Disease Epidemiology Collaboration (CKD-EPI) equation refit??without adjustment for race. BUN/Creatinine Ratio 19.1 LAB CHEMISTRY METHOD 06/05/2024 3:15 PM [facility] Calcium 10.1 8.5 - 10.5 mg/dL LAB CHEMISTRY METHOD 06/05/2024 3:15 PM [facility] AST (SGOT) 25 10 - 42 unit/L LAB CHEMISTRY METHOD 06/05/2024 3:15 PM [facility] ALT (SGPT) 30 10 - 60 unit/L LAB CHEMISTRY METHOD 06/05/2024 3:15 PM [facility] Alkaline Phosphatase 104 42 - 121 unit/L LAB CHEMISTRY METHOD 06/05/2024 3:15 PM [facility] Total Protein 6.9 6.0 - 8.0 g/dL LAB CHEMISTRY METHOD 06/05/2024 3:15 PM [facility] Albumin 4.0 3.2 - 5.0 g/dL LAB CHEMISTRY METHOD 06/05/2024 3:15 PM [facility] Total Bilirubin 0.4 0.0 - 1.4 mg/dL LAB CHEMISTRY METHOD 06/05/2024 3:15 PM [facility] Blood Venous blood specimen / Unknown Venipuncture / Unknown 06/05/2024 10:30 AM EST 06/05/2024 10:30 AM EST us Bernard Uriarte MD LAB BLOOD ORDERABLES Final Resu lt [facility] [address] [place] [address], [place] [phone] * Colonoscopy (12/04/2023) Colonoscopy no interpretation , abstracted Anatomical Region Laterality Modality Other Historical Provider HEALTH MAINTENANCE Final Result * Hepatitis C Screening (03/19/2018) Hepatitis C Screening abstracted us Historical Provider HEALTH MAINTENANCE Final Result from Last 3 Months or Most Recently Relevant to Health Maintenance Insurance * Guarantor: Chiquita Brown Account Type Relation to Patient Date of Phone Billing Address Personal/Family Self 1945 [address] [place] [phone] [employer] MEDICARE Care Teams Hardware Design Engineer Relationship Specialty Start Date End Date Bernard Uriarte MD [address] [place] [address] PCP - General Internal Medicine 06/05/24
== END 2024-12-10 08:49 | disposition home or self-care (01) ==
LOC: HO.HOS 08:36
PROVIDERS: PCP Internal Medicine Hematology & Oncology; Visit Provider Orthopaedic Surgery
DX: M25.562 Pain in left knee (principal)
CPT/HCPCS: 99213; G2211

== ENCOUNTER → 2024-12-10 08:35 | Outpatient (BNVA) | payer MEDICARE, SELFPAY | PROVIDERS: PCP Internal Medicine Hematology & Oncology; Visit Provider Orthopaedic Surgery | DX: M25.562 Pain in left knee (principal) | CPT/HCPCS: 99212 ==

== ENCOUNTER 2025-01-29 09:00 | Outpatient (AMB) | payer MEDICARE, SELFPAY ==
[2025-01-29 09:04] VITALS: BMI 34.6
--- NOTE | 2025-01-29 09:04 | A.OFFVIS_ITS ---
Vital Signs 01/29/25 09:04 Height 5 ft Weight 177 lb BMI 34.6 Intake Visit Reasons: Inj- Left knee Durolane inj Intake Note: Chiquita is a 79 year old female who presents for a left knee Durolane injection. History of left knee arthroscopic surgery on 07/18/2024. She states that she got temporary relief from that procedure. She wishes to hold off on total knee replacement surgery for as long as possible. Allergies No Known Allergies Allergy (Verified 01/29/25 09:05) Medication List - Last Reconciled 01/29/25 by Gene Mcqueen MD amlodipine 10 mg PO DAILY aspirin (Adult Aspirin Regimen) 81 mg PO DAILY escitalopram oxalate 20 mg PO DAILY gemfibrozil 600 mg PO BID omeprazole 20 mg PO BID rosuvastatin 40 mg PO DAILY semaglutide (Ozempic) mg subcut trazodone 50 mg PO BEDTIME [facility] Medical History Cognitive disorder Paresthesias History of deviated nasal septum Arthritis Cough URI, acute Asthma Mucoid cyst of joint Spinal stenosis of lumbar region Avulsion fracture of ankle Chronic pain of right knee 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 pylori infection Anxiety and depression Carotid artery aneurysm Hypertension Class 2 obesity Coronary artery calcification Osteopenia Microscopic hematuria Edema of both legs Insomnia Avulsion fracture of left ankle Lumbar radiculopathy Thyroid nodule FABIAN (obstructive sleep apnea) History of colon polyps GERD (gastroesophageal reflux disease) History of COVID-19 Abnormal stress test TIA (transient ischemic attack) Post-nasal drip Osteoarthritis of knee Surgical History History of nasal surgery Hx of bilateral cataract extraction History of esophagogastroduodenoscopy (EGD) H/O colonoscopy Hx of cardiac catheterization H/O total hysterectomy H/O section H/O knee surgery History of carpal tunnel release Family History Father No problems noted. Mother No problems noted. Social History Household Members: Spouse Housing: House Are you a primary home health care provider to a significant other at home: No Do you presently have visiting nurse or other home services: No Alcohol intake: never Patient Tobacco Use Status: Former Tobacco user Physical Exam Vital Signs: BMI result Body Mass Index 34.6 Extrem Other: Left knee examination shows that the surgical incisions are well healed, no erythema, palpable crepitus with range of motion, pain with range of motion Office Procedures AMB Joint Injection/Aspiration Joint Injection/Aspiration Primary Site: left knee Prep: site was prepped using aseptic technique Injected: 60 mg of (Durolane viscosupplementation) and 1% plain lidocaine Procedure: The patient tolerated the procedure well Coding - Large joint Procedure code (CPT) selection complete Results Reviewed Results Reviewed: X-rays of the patient's left knee taken previously show joint space narrowing, subchondral sclerosis, no acute bony abnormalities Assessment & Plan Assessment & Plan (1) Osteoarthritis of left knee: Code(s): M17.12 - Unilateral primary osteoarthritis, left knee Category: Medical Plan Ms. Brown presents with left knee pain due to osteoarthritis. The risks and benefits of a Durolane viscosupplementation injection were discussed at length with the patient. The patient wished to proceed. She tolerated the injection well. She will follow up on an as-needed basis should her symptoms not plateau at an unacceptable level over the next few months. I spent 22 minutes in reviewing the patient's records and imaging studies, seeing the patient and documenting in the medical record. Orders: Orders AMB Joint Injection/Aspiration Today M17.12 - Unilateral primary osteoarthr itis, left knee Coding Level of Care Code Est Pt Level 3 (55009) Complex EM visit Add On G2211 Diagnoses Osteoarthritis of left knee M17.12 CPT Codes Coding - Large joint: 40975 - Large joint ([id number])
--- OUTSIDE RECORDS SUMMARY | 2025-01-29 09:20 | XMS_ITS | Encounter Summary ---
Author Organization [facility] Address [address] [place] [address] Care Team Providers Care Unitizer Name Role Phone Bernard Uriarte MD Primary Care Provider [phone] Reason for Visit * Reason Onset Date Comments medication 12/26/2024 Encounter Details Date Type Department Care Team ([facility] st Contact Info) Description 12/26/2024 Telephone [facility] [address] [place] [phone] Aj Painter MD [address] [place] [id number] medication Social History Tobacco Use Types Packs/Day Years [...] as of this encounter Progress Notes * Mary Shelley MA - 12/26/2024 12:04 PM EDT Called and spoke with patient and provided her with the information. Patient aware and agreed. * Aurelia Hsieh - 12/26/2024 11:18 AM EDT Patient was seen on 10/28/24 by Pao and was prescribed gabapentin. Patient calls this morning requesting to go over the visit encounter from that day. Patient was wondering why she was prescribed that and was also wondering if this could be sent over to Rupa Dasilva, a offset proof press operator in [place]. Best contact number to reach patient is [phone] documented in this encounter Plan of Treatment Upcoming Encounters Date Type Department Care Team (Late st Contact Info) Description 03/12/2025 8:45 AM EDT Office Visit Pulmonolgy - [address] [phone] Kaela Costa MD [address] [address] 04/14/2025 8:30 AM EDT Office Visit Bariatric Surgery - [address] [phone] Charlie Matute MD [address] [address] 04/14/2025 9:30 AM EDT Nutrition Bariatric Surgery - [address] [phone] [phone] documented as of this encounter Visit Diagnoses Not on filedocumented in this encounter Care Teams Unitizer Relationship Specialty Start Date End Date Bernard Uriarte MD [address] [place] [address] PCP - General Internal Medicine 06/05/24 documented as of this encounter
--- OUTSIDE RECORDS SUMMARY | 2025-01-29 09:21 | XMS_ITS | Data Portability ---
Author Organization [place] - [facility], Allergy Address [address] [place] [phone] Care Team Providers Care Explosive Ordnance Manager Name Role Phone OSVALDO GARCIA Primary Care [...] as needed. [email or web address] Not available 04/21/2024 08:38:16 01/01/2025 01/01/2025 79yo female with history of epistaxis presents for evaluation of daily right epistaxis x6 months. Nasal examination today identified a prominent bleeding source on the anterior right septum. This site was cauterized with silver nitrate. Basic epistaxis precautions were discussed including avoidance of nose blowing, nose picking, straining, bending forward, exertion, heavy lifting, steamy showers, and sneezing with the mouth open for two weeks. Recommend local wound care with saline nasal spray 4-6 times daily, nasal saline gel at night, Afrin with episodes of bleeding and packing the nose with Bleed Cease (available OTC) if any additional bleeding. May use Ponaris Nasal Emollient 1/2 dropper twice daily as needed with dryness. Return to office as needed or go to emergency room with severe episodes. [email or web address] Not available 01/01/2025 12:07:37 Plan of Treatment Reminders Order Date Submit Date Provider Last Modified By Organization Details Last Modified Time Details Appointments None recorded. Lab None recorded. Referral None recorded. Procedures None recorded. Surgeries None recorded. Imaging None recorded. Medication Orders clotrimaz ole-betam ethasone 1 %-0.05 % topical cream [id number], [id number] [facility], [place], [address], 4 13:22:56 Patient TargetsNo targets recorded. Patient InstructionsNo instructions recorded. Reason for Referral None Reported. Problems Name Problem SNOMED Code Status Onset Date Resolution Date Notes Provider Name and Address Organization Details Recorded Time Chronic otitis externa 62839166 Active 2023 VLADIMIR SIMPSON MD [address] [place] [address], [place], [phone], [facility] - [facility] 4 13:21:40 Gastroesophage al reflux disease without esophagitis 293568492 Active 2023 VLADIMIR SIMPSON MD [address] [place] [address], [place], [address], [facility] - [facility] 4 08:36:07 Chronic pharyngitis 174984 Active 2023 VLADIMIR SIMPSON MD [address] [place] [address], [place], [address], [facility] - [facility] 4 08:36:37 Recurrent bleeding of nose Active 2024 TYE MARTINEZ PA-C [address] [place] [address],[place] [address], [place], [phone], [facility] - [facility] 5 12:07:43 Problem Notes None recorded. Procedures Surgical History Date Name Laterality Status Provider Name and Address Organization Details Recorded Time 01/02/20 25 Epistaxis Simple Nasal Cautery Right completed TYE MARTINEZ PA-C [address], [place], [address], [facility] - [facility] 01/01/2025 12:06:29 04/18/20 24 Fiberoptic Laryngoscopy (Comprehensive) completed VLADIMIR SIMPSON MD [address], [place], [address], [facility] - [facility] 04/18/2024 13:19:17 Imaging Results None recorded. [...] completed Not Available Not Available Not Available Ozempic 2 mg/dose (8 mg/3 mL) subcutaneou s pen injector INJECT 2 MG UNDER THE SKIN EVERY 7 DAYS active Not Available Not Available No t Available Vitals Date Recorded Body height Body mass index (BMI) Body weight Provider Name and Address Organization Details Last Updated DateTime 01/01/2025 152.4 cm 33.6 kg/m2 06850.89 g Anjelica Torreshector [facility] 01/01/2025 11:37:47 Date Recorded Body height Body mass index (BMI) Body weight Provider Name and Address Organization Details Last Updated DateTime 04/18/2024 152.4 cm 35.5 kg/m2 01747.81 g Jenny Lerneryamini [facility] 04/18/2024 13:14:38 Social History None recorded. [...] Code Diagnosis Note VLADIMIR SIMPSON MD [facility] [address] [phone] 04/18/2024 12:37:33 04/18/2024 13:26:12 Chronic otitis externa 29515094 H60.62 Gastroesop hageal reflux disease without esophagitis 131343973 K21.9 Chronic pharyngitis 1400 04 J31.2 90752 TYE MARTINEZ PA-C [facility] [address] [phone] 01/01/2025 11:29:24 01/01/2025 16:31:43 Recurrent bleeding of nose 7291750031 102 R04.0 Health Concerns Section Related Observation LastModified by Organization Detai ls LastModified Time None Recorded Concern Status LastModified by Organization Details LastModified Time None Recorded Advance Directives Directive None Recorded Payers Insurance Date Sequence Insurance Name Policy Number Policy Chavez Covered Member ID Chavez Member ID Guarantor Name 01/01/2025 1 [facility] (MEDICARE REPLACEMENT/A DVANTAGE - HMO) [id number] Chiquita Brown [id number] Chiquita Brown Notes Date Note Type Note Provider Name and Address Organization Details Recorded Time 04/18/2024 text/html 78 yo F presents for assessment. Sore throat over the summer for 3 months over the summer. [place] in area of larynx. Worse with swallowing. [...] 2.5 - 3 months. VLADIMIR SIMPSON MD [address] [facility],[address], [address], [facility] - [facility] 04/21/2024 08:38:34 01/01/2025 text/html 79yo female on baby ASA presents for evaluation of daily right-sided nosebleeds x6 months. She uses [place] gel as needed. She frequently blows her nose aggressively. She manages nosebleeds with stuffing tissues into the nose. She has benefited from nasal cautery at this practice in the past. Denies family history of bleeding disorder or blood thinner. TANJA WELLER MD [address] [place] [address],[address], [address], [facility] - [facility] 01/02/2025 09:43:30 OBGyn Episode No OBEpisode recorded.
--- OUTSIDE RECORDS SUMMARY | 2025-01-29 09:21 | XMS_ITS | Patient Health Record ---
Author Organization [facility] Address [address] [place] [address] Care Team Providers Care Dining Room Manager Name Role Phone Bernard Uriarte Primary Care Provider Unavailabl e Brown Nubia Unavailable [phone] Marika ROBERSON, Antonia Unavailable Unavailable Allergies No [...] Duration) Notes Start Date End Date Status Aspir-81 81 MG 1 tablet Orally Once a day Active Escitalopram Oxalate Active Night Splint AFO - L1930 as directed 12/14/2017 Not-Taking CeleBREX 200 MG 1 capsule Orally Onc e a day Active Lipitor 80 MG 1 tablet Orally Once a day Active ProAir HFA 108 (90 Base) MCG/ACT 2 puffs as needed Inhalation every 4 hrs Active Gemfibrozil 600 MG 1 tablet Orally Twic e a day Active Ciclopirox 0.77 % 1 application to affected area Externally Twice a day to effected nails; Duration: 30 days 08/27/2024 Active Lexapro Active Gabapentin 300 MG 1 capsule Orally 3 times a day; Duration: 30 days 12/26/2024 Active Omeprazole 20 MG 2 capsules Orally On ce a day Active Gabapentin 300 MG 1 capsule Orally at bedtime; Duration: 30 days 12/12/2024 Not-Taking Ciclopirox 0.77 % 1 application to affected area Externally Twice a day to effected nails; Duration: 30 days 12/12/2022 Not-Taking Ozempic Active amLODIPine Besylate 5 MG 1 tablet Orally Once a day Active Restasis Not-Taking Immunizations Vaccine Route Administration Date Status Comme nts COVID-19 Pfizer BioNTech Vaccine Unknown 09/21/2020 Administered 1st vaccine Influenza Unknown 04/29/2024 Administered Social History Tobacco Use: Social History Observation [...] primary osteoarthritis of the ankle and/or foot (511486791) Primary osteoarthritis, left ankle and foot (M19.072) Active confirmed Problem Neuritis (85642781) Neuritis (M79.2) Active confirmed Problem 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) Active confirmed Vital Signs Blood pressure diastolic 77 mm Hg 01/20/2025 Height 5 ft in 01/20/2025 Blood pressure systolic 121 mm Hg 01/20/2025 Weight 175 lbs 01/20/2025 BMI 34.17 kg/m2 01/20/2025 Procedures Procedure Date Ordered Date Performed Result Body Sit e , F0641-LXZVU/INJECT, JOINT/BURSA 10/03/2024 N/A , O8092-ZSUSN/INJECT, JOINT/BURSA 01/20/2025 N/A Encounters Encounter Location Date Provider Diagnosis [address] [place] [address] 08/27/2024 Nubia Black Pain in left foot [...] left toe(s) M79.675 and Tinea unguium B35.1 [facility] [address] [place] [address] 10/03/2024 Nubia Black Pain in left foot M79.672 ; Osteoarthritis of midtarsal joint of left foot M19.072 ; Pain in left ankle and joints of left foot M25.572 ; Bursitis of left foot M77.52 ; Pain in left toe(s) M79.675 and Tinea unguium B35.1 [facility] [address] [facility] [address] 12/12/2024 Nubia Black Osteoarthritis of midtarsal joint of left foot M19.072 ; Neuritis M79.2 ; Pain in left foot M79.672 ; Pain in left ankle and joints of left foot M25.572 ; Bursitis of left foot M77.52 and Pain in left toe(s) M79.675 [facility] [address] [facility] [place] [address] 12/26/2024 Nubia Black Osteoarthritis of midtarsal joint of left foot M19.072 ; Neuritis M79.2 ; Pain in left foot M79.672 ; Pain in left ankle and joints of left foot M25.572 ; Bursitis of left foot M77.52 and Pain in left toe(s) M79.675 [facility] [address] [place] [address] 01/20/2025 Nubia Black Osteoarthritis of midtarsal joint of left foot M19.072 ; Neuritis M79.2 ; Pain in left foot M79.672 ; Pain in left ankle and joints of left foot M25.572 ; Bursitis of left foot M77.52 and Pain in left toe(s) M79.675 [facility] [address] [place] [address] 03/14/2024 Nubia Black [facility] [address] [address] 08/28/2024 Nubia Black [facility] [address] [address] 10/03/2024 Nubia Black [facility] [address] 12/09/2024 Nubia Black [facility] [address] [address] 12/12/2024 [facility] [address] 12/26/2024 [facility] [address] 01/15/2025 Nubia Black Assessments Encounter Date Diagnosis (ICD Code) Assessment Notes Treatment Notes Treatment Clinical Notes Section Notes 08/27/2024 Pain in left foot (ICD-10 - M79.672) 08/27/2024 Osteoarthritis of midtarsal joint of left foot (ICD-10 - M19.072) 10/03/2024 Pain in left foot (ICD-10 - M79.672) 10/03/2024 Osteoarthritis of midtarsal joint of left foot (ICD-10 - M19.072) Patient Educated with: INJECTIONTHER APY.pdf (INJECTIONTHE RAPY.pdf) 12/12/2024 Neuritis (ICD-10 - M79.2) 12/12/2024 Osteoarthritis of midtarsal joint of left foot (ICD-10 - M19.072) 12/26/2024 Osteoarthritis of midtarsal joint of left foot (ICD-10 - M19.072) 01/20/2025 Neuritis (ICD-10 - M79.2) 01/20/2025 Osteoarthritis of midtarsal joint of left foot (ICD-10 - M19.072) 01/20/2025 Pain in left foot (ICD-10 - M79.672) 12/26/2024 Neuritis (ICD-10 - M79.2) 12/12/2024 Pain in left foot (ICD-10 - M79.672) 10/03/2024 Pain in left ankle and joints of left foot (ICD-10 - M25.572) 08/27/2024 Pain in left ankle and joints of left foot (ICD-10 - M25.572) 08/27/2024 Bursitis of left foot (ICD-10 - M77.52) 12/12/2024 Pain in left ankle and joints of left foot (ICD-10 - M25.572) 10/03/2024 Bursitis of left foot (ICD-10 - M77.52) 12/26/2024 Pain in left foot (ICD-10 - M79.672) 01/20/2025 Pain in left ankle and joints of left foot (ICD-10 - M25.572) 12/26/2024 Pain in left ankle and joints of left foot (ICD-10 - M25.572) 10/03/2024 Pain in left toe(s) (ICD-10 - M79.675) 12/12/2024 Bursitis of left foot (ICD-10 - M77.52) 01/20/2025 Bursitis of left foot (ICD-10 - M77.52) 08/27/2024 Pain in right foot (ICD-10 - M79.671) 08/27/2024 Pain in right ankle and joints of right foot (ICD-10 - M25.571) 10/03/2024 Tinea unguium (ICD-10 - B35.1) 12/12/2024 Pain in left toe(s) (ICD-10 - M79.675) 12/26/2024 Bursitis of left foot (ICD-10 - M77.52) 01/20/2025 Pain in left toe(s) (ICD-10 - M79.675) 12/26/2024 Pain in left toe(s) (ICD-10 - M79.675) 08/27/2024 Bursitis of right foot (ICD-10 - M77.51) 08/27/2024 Osteoarthritis of midtarsal joint of right foot (ICD-10 - M19.071) 08/27/2024 Pain in left toe(s) (ICD-10 - M79.675) 08/27/2024 Tinea unguium (ICD-10 - B35.1) Plan Of Treatment Pending Test Test Name Order Date MRI : Foot, right 12/21/2020 X ray : Foot, right 3V 11/13/201758811, V0472-OVBIJ/INJECT, JOINT/BURSA 0 12/17/201983742, A6290-CFVVR/INJECT, JOINT/BURSA 0 02/04/202080537, L9525-BBFAA/INJECT, JOINT/BURSA 0 10/25/2021 74475, C4874-ROJAF/INJECT, JOINT/BURSA 0 10/03/202486711, C5619-IXKXR/INJECT, JOINT/BURSA 0 01/20/202518657, N1359-BQFTL/INJECT, JOINT/BURSA 0 10/22/2020 43128, X8873-KZNVD/INJECT, JOINT/BURSA 0 11/13/2017 61349,S1403-QPS TENDON SHEATH/LIGAMENT 0 03/17/2020 89419,H3765-SLY TENDON SHEATH/LIGAMENT 0 12/14/2017 IV as clinically indicated by Radiologis t w,w/o contrast 12/21/2020 Next Appt Details Provider Name:Nubia Salazar Brown , 03/04/2025 09:00:00 AM, [address] [place] [address], [place], [address], Insurance Providers Payer Name Payer Address Payer Phone Subscriber Number Group Number Insured Name Patient Relationship to Insured Coverage Start Date Coverage End Date [facility] are [address] [place] [address] [id number] Chiquita Brown Self - patient is the insured Medical (General) History Medical History History ICD Code Arthritis asthma Back,Hip,and Knee pain Depression High blood pressure Raynauds syndrome Chicken pox Stroke September Acquired equinus deformity of left foot M21.6X2 Acquired equinus deformity of right foot M21.6X1 Primary osteoarthritis, right ankle and foot M19.071 Hallux rigidus, right foot M20.21 Osteoarthritis of midtarsal joint of rig ht foot M19.071 Surgical History Surgery Date(Month/Year) carpal tunnel surgery section knee surgery, right meniscus, left knee 07/18/24 Hospitalization History Reason Date(Month/Year) [facility] stroke mild 10/02/2022 Urgent care left foot fracture 12/2016
== END 2025-01-29 09:16 | disposition home or self-care (01) ==
LOC: HO.HOS 09:00
PROVIDERS: PCP Internal Medicine Hematology & Oncology; Visit Provider Orthopaedic Surgery
DX: M17.12 Unilateral primary osteoarthritis, left knee (principal)
CPT/HCPCS: 20610; 99213

== ENCOUNTER → 2025-01-29 09:00 | Outpatient (BNVA) | payer MEDICARE, SELFPAY | PROVIDERS: PCP Internal Medicine Hematology & Oncology; Visit Provider Orthopaedic Surgery | DX: M17.12 Unilateral primary osteoarthritis, left knee (principal) | CPT/HCPCS: 20610; 99212; J2003; J7318 ==